=== PATIENT | male | born 1940 | race Caucasian/White ===

== ENCOUNTER 2023-07-20 09:17 | Emergency (ER) | payer OTHER, SELFPAY ==
[2023-07-20 09:20] VITALS: BP 133/83
--- NOTE | 2023-07-20 09:38 | ED.GENMED ---
History of Present Illness
General
Chief Complaint: Breathing Problem
Time Seen by Provider: 07/20/23 09:30
Travel History
Have you had any contact with someone who has COVID-19?: No
Do you have any symptoms of coronavirus? Fever > 100 degrees, chills, cough, shortness of breath, sore throat, loss of taste or smell, muscle aches, or headache?: No
History of Present Illness
History of Present Illness:
82-year-old male with history of A-fib on Eliquis presents to the emergency department for evaluation of shortness of breath and productive cough ongoing for the past week but worsening in the past 2 days. He is using albuterol inhalers and
nebulizers at home but he admits that these are by at least 2 years. Denies any chest pain. Does have left lower extremity swelling has been chronic for him. He is compliant with his anticoagulants. No fevers or night sweats.
Past History
Past History
ED Past Medical History: Arrthythmia (A-fib), Asthma, Hypercholesterolemia and Other
ED Past Surgical History: Cholecystectomy and Orthopedic
Social History
Tobacco: Former smoker
Alcohol: None
Drug: None
Employment: Retired
Review of Systems
Review of Systems
Allergies reviewed?: Yes
All Other Systems: ROS reviewed and negative except as documented in HPI and ROS
Phy Exam
Physical Exam
Physical Exam:
GEN: Well appearing, NAD, WDWN
Eyes: PERRLA, EOMs intact, no scleral icterus
HENT: NCAT, oral mucosa moist, no JVD,
Lungs: Coarse expiratory wheezes with prolonged expiratory phase heard throughout all lung welsh, tachypneic with accessory muscle use
Cardiac: Tachycardic and irregular, no M/R/G. Radial pulses 2+ bilat
Neuro: AO x 3, no focal deficits to BUE/BLE, normal sensation throughout
MSK: No gross deformity or ecchymosis. 2+ pitting edema to the left lower extremity below the knee, reportedly chronic according to the patient
Skin: No rashes, petechiae. Normal color, no pallor or jaundice.
Psych: Calm, cooperative, proper hygiene
Scores
Heart Failure Risk
Heart Failure Risk Score: Not Applicable
Course
Orders/Labs/Results
Orders:
Orders
07/20/23 09:37
Ipratropium/Albuterol Sulfate [Duoneb] 6 ml INH R NOW ONE
MethylPREDNISolone PF [Solu-Medrol Pf] 60 mg IV NOW STA
07/20/23 09:38
CR Chest - 2 Views Urgent
Comment:
Reason For Exam: cough, wheezing
07/20/23 09:51
Basic Metabolic Panel Urgent
COVID-19 Antigen Urgent
Source: Nasal Swab
Complete Blood Count/With Diff Urgent
Influenza A+B Rapid Molecular Urgent
INDRA Source: Nasal Swab
Specimen Description:
Abnormal Lab Results
07/20/23
09:51
MCV 98.8 H fL
(80.0-94.0)
MCH 32.8 H pg
(27.0-31.0)
RDW 14.9 H %
(11.5-14.5)
MPV 10.5 H fL
(7.4-10.4)
Absolute Monos (auto) 0.7 H 10^3/uL
(0.1-0.6)
Absolute Eos (auto) 1.1 H 10^3/uL
(0-0.7)
Monocytes % 11.2 H %
(1.7-9.3)
Eosinophils % 18.8 H %
(0-6)
Chloride 108 H mmol/L
(98-107)
BUN 25 H mg/dl
(9-20)
07/20/23 09:51
07/20/23 09:51
Vital Signs
Initial and Last Documented VS:
Initial Vital Signs
Temp Pulse Resp BP Pulse Ox
98.5 F 104 32 133/83 91
07/20/23 09:20 07/20/23 09:20 07/20/23 09:20 07/20/23 09:20 07/20/23 09:20
Last Documented Vital Signs
Temp Pulse Resp BP Pulse Ox
98.5 F 85 20 109/82 97
07/20/23 09:20 07/20/23 10:45 07/20/23 10:45 07/20/23 10:20 07/20/23 11:15
MDM/Problems Addressed
MDM/Problems Addressed:
Patient's symptoms dramatically improved after neb treatment. This chest x-ray is clear with no evidence for infiltrate. His hypoxia resolved and work of breathing returned to normal. Ultimately the patient appears clinically well on reevaluation
and I feel is appropriate for outpatient management. Started on IV steroids in the emergency department, he is provided with a nebulizer machine and albuterol via nebulization for as needed use, will start him on a course of steroids
*Critical Care Note
Total Time (30-74mins, 75-104mins- exclusive of procedures): Not Applicable
ED Attending Note
-
Portions of this chart may have been created with voice recognition software.� Occasional wrong word or��sound alike� substitutions may have occurred due to the inherent limitations of voice recognition software.
Discharge Plan
Departure
Patient Disposition: Home (Routine Discharge)
Date of Disposition: 07/20/23
Time of Disposition: 11:12
Patient with high blood pressure during this ER visit?: No
Discharge Problem:
Asthma exacerbation
Instructions: Asthma, Adult (DC)
Prescriptions:
New
albuterol sulfate 90 mcg/actuation HFA aerosol inhaler
2 puff inhalation QID PRN (Reason: shortness of breath or wheezing) Qty: 8.5 0RF
albuterol sulfate 2.5 mg /3 mL (0.083 %) solution for nebulization
2.5 mg inhalation QID PRN (Reason: shortness of breath or wheezing) Qty: 90 0RF
prednisone 20 mg tablet
40 mg PO DAILY 5 Days Qty: 10 0RF
No Action
lovastatin 40 mg Tablet
40 mg PO QPM
carvedilol 3.125 mg Tablet
3.125 mg PO BID
albuterol sulfate [ProAir HFA] 90 mcg/actuation Hfa Aerosol Inhaler
2 puff INHALATION R Q6HPRN PRN (Reason: sob)
PreserVision AREDS-2 250-90-40-1 mg Capsule
1 tab PO QPM
fluticasone propionate 50 mcg/actuation [place],Suspension
1 spray INTRANASAL DAILYPRN PRN (Reason: allergies)
aspirin 81 mg Tablet,Delayed Release (Dr/Ec)
81 mg PO DAILY
Eliquis 5 mg Tablet
5 mg PO BID
Breztri Aerosphere 160-9-4.8 mcg/actuation Hfa Aerosol Inhaler
2 inh INHALATION R BID
Referrals:
Filippo Cotton MD [Family Provider] -
Activity Restrictions/Additional Instructions:
Use the nebulizer up to every 4-6 hours as needed for shortness of breath. Begin taking the prednisone tomorrow because we gave you a dose of IV steroids in the ER
Do not use your albuterol inhaler while using the nebulizer however you may resume this in 1 week as needed
Continue your Breztri as previously prescribed
Follow-up with your global compensation director in 1 to 2 weeks
Interventions
Interventions:
*Risk Screen - Suicide Last Done: 07/20/23 10:20
*General Assessment Last Done: 07/20/23 10:20
*Neglect/Abuse Screening Last Done: 07/20/23 10:20
ED- Fall Risk Assessment Last Done: 07/20/23 10:20
*ED COVID-19 Vaccine History Last Done: 07/20/23 10:20
*Nursing Disposition Last Done: 07/20/23 11:15
ED- Cardiac Assessment Last Done: 07/20/23 10:20
ED- Pulmonary Assessment Last Done: 07/20/23 10:20
Discharge Date and Time
Discharge Date/Time: 07/20/23 11:15
Print Language: GREENLANDIC
[2023-07-20] MEDS: SOLU-MEDROL PF 60 MG IV (09:43)
[2023-07-20] MEDS: DUONEB 6 ML INH (09:43)
[2023-07-20 09:59] LABS: % Basophils 0.7 % (0-2); % Eosinophils 18.8 % (0-6); % Immature Granulocytes 0.3 % (0-0.5); % Lymphocytes 25.8 % (20.5-51.1); % Monocytes 11.2 % (1.7-9.3); % Neutrophils 43.2 % (42.2-75.2); Absolute Eosinophils 1.1 10^3/uL (0-0.7); Absolute Lymphocytes 1.6 10^3/uL (1.2-3.4); Absolute Monocytes 0.7 10^3/uL (0.1-0.6); Absolute Neutrophils 2.6 10^3/uL (1.4-6.5); Hemoglobin 16.6 g/dL (13.0-18.0); Mean Corp Hgb Conc. 33.2 g/dL (33.0-37.0); Mean Corpuscular Hgb 32.8 pg (27.0-31.0); Mean Corpuscular Volume 98.8 fL (80.0-94.0); Mean Platelet Volume 10.5 fL (7.4-10.4); Nucleated Red Blood Cells % 0 % (-); Platelet Count 201 10^3/uL (130-400); Red Blood Cell Count 5.06 10^6/uL (4.70-6.10); Red Cell Dist. Width 14.9 % (11.5-14.5); White Blood Cell Count 6.1 10^3/uL (4.8-10.8)
[2023-07-20 10:15] LABS: COVID-19 Antigen Negative (Negative)
[2023-07-20 10:16] LABS: Blood Urea Nitrogen 25 mg/dl (9-20); Carbon Dioxide 26 mmol/L (22-30); Chloride 108 mmol/L (98-107); Glucose 97 mg/dl (70-99); Sodium 141 mmol/L (135-145); eGFR > 60.00
[2023-07-20 10:20] VITALS: BP 109/82
== END 2023-07-20 11:15 | disposition home or self-care (01) ==
LOC: EMR 09:17
PROVIDERS: Physician Assistant; EMERGENCY PHYSICIAN Emergency Medicine; FAMILY PHYSICIAN Family Medicine
DX: J45.901 Unspecified asthma with (acute) exacerbation (principal); I48.91 Unspecified atrial fibrillation; Z79.01 Long term (current) use of anticoagulants; Z87.891 Personal history of nicotine dependence
CPT/HCPCS: 99284; 96374; 94640; 71046; 80048; 85025; 87502; 87811

== ENCOUNTER 2024-02-11 10:13 | Emergency (ER) | payer OTHER, SELFPAY ==
[2024-02-11 10:30] VITALS: BP 124/89
--- NOTE | 2024-02-11 10:30 | ED.GENMED ---
ED Provider Triage
<Toribio Rodriguez PA-C - Last Filed: 02/11/24 10:32>
-
Patient seen by provider in Triage?: Seen in Triage
Attestation: A medical screening examination has been initiated by a qualified medical provider. Based on the assessment performed at this time, it has been determined that an emergent medical condition may exist and the patient has been informed
that further medical evaluation and possible additional diagnostic testing may be needed.
HPI: 83-year-old male presenting to the emergency department for evaluation at request of primary care provider due to left lower extremity edema and pain. States he scraped it a few weeks ago and has had some worsening pain since, today seems a
little bit worse. No fevers or chills or other infectious symptoms. Primary care provider was more concerned for possible DVTs were advised to come to the ER for an ultrasound. Patient is otherwise stable. Ultrasound ordered.
GENERAL: Alert , in no apparent distress
EYE: No visual abnormalities.
NECK: Trachea midline
ENT: No visible abnormalities.
LUNGS: No acute respiratory distress
NEUROLOGICAL: Alert and oriented
SKIN: Skin intact. No visible changes.
MUSCULOSKELETAL: Moving extremities normally
PSYCH: Normal and appropriate interaction.
This is a medical evaluation conducted in person to initiate diagnostic evaluation and provide initial therapeutics. Please see further documentation by the treating clinician.
History of Present Illness
<Toribio Rodriguez PA-C - Last Filed: 02/11/24 10:32>
General
Chief Complaint: Swelling
Time Seen by Provider: 02/11/24 11:11
<Merced Muñoz PA-C - Last Filed: 02/11/24 12:51>
General
Source: patient
Exam Limitations: none
Nursing documentation reviewed up to this point in time: agreed with
History of Present Illness
History of Present Illness:
pt is a 83 y/o M with h/o afib on eliquis
peripheral edema
prostate ca in the past
here with L ankle mild redness after scraping against his mower 2 weeks ago
pt had a wound that scabbed and then turned a little red around it.
1 week ago he went to his PCP where they put him on keflex bid for 5 days
pt says he iwas called today by the office to have follow up and he happened to mention that the leg is still mildly pink and swollen adn they told him to come tot he ER
he has chronic edema in his legs for which he has been prescribed lasix but pt hasn't taken it recently becuase it makes him pee a lot.
he feels the swelling is a little worse than baseline around his wound
no sensory loss, fever, chills, nauesa, vomiting, diarrhea
pt is compliant with his eliquis
Past History
<Toribio Rodriguez PA-C - Last Filed: 02/11/24 10:32>
Past History
ED Past Medical History: Arrthythmia (A-fib), Asthma, Hypercholesterolemia and Other
ED Past Surgical History: Cholecystectomy and Orthopedic
Social History
Tobacco: Former smoker
Alcohol: None
Drug: None
Employment: Retired
Phy Exam
<Merced Muñoz PA-C - Last Filed: 02/11/24 12:51>
Physical Exam
Physical Exam:
GENERAL: Alert , in no apparent distress
EYE: pupils equal and reactive
NECK: Supple
ENT: o/p clr, mmm.
CARDIAC: Regular rate and rhythm .+ peripheral pitting edema, very minimally greater around ankle L side but fairly symmetric with 3+ pitting pretibial edema b/l
LUNGS: Clear breath sounds bilaterally, no acute respiratory distress, no wheezes/rales/rhonchi
ABDOMEN: Soft, without focal tenderness, no r/g, no cvat, normal bowel sounds
NEUROLOGICAL: Alert and oriented, no focal neuro deficits
SKIN: Warm and dry,
scab left medial ankle
TRACE pink skin surrounding; normal sensation; no sigificnat tendenress; full ROM of the ankle
MUSCULOSKELETAL: edema b/l; ankle wound healed; minimal pink skin; PVD skin changes b/l
PSYCH: Normal and appropriate interaction.
Scores
<Merced Muñoz PA-C - Last Filed: 02/11/24 12:51>
Heart Failure Risk
Heart Failure Risk Score: Not Applicable
Course
<Toribio Rodriguez PA-C - Last Filed: 02/11/24 10:32>
Orders/Labs/Results
Orders:
Orders
02/11/24 10:31
US Periph Venous LOWER Ext LT Urgent
Comment:
Reason For Exam: pain, edema, erythema
Vital Signs
Initial and Last Documented VS:
Initial Vital Signs
Temp Pulse Resp BP Pulse Ox
36.2 C 93 18 124/89 97
02/11/24 10:30 02/11/24 10:30 02/11/24 10:30 02/11/24 10:30 02/11/24 10:30
Last Documented Vital Signs
Temp Pulse Resp BP Pulse Ox
36.2 C 93 18 124/89 97
02/11/24 10:30 02/11/24 10:30 02/11/24 10:30 02/11/24 10:30 02/11/24 10:30
<Merced Muñoz PA-C - Last Filed: 02/11/24 12:51>
Orders/Labs/Results
Orders:
Orders
02/11/24 10:31
US Periph Venous LOWER Ext LT Urgent
Comment:
Reason For Exam: pain, edema, erythema
Vital Signs
Initial and Last Documented VS:
Initial Vital Signs
Temp Pulse Resp BP Pulse Ox
36.2 C 93 18 124/89 97
02/11/24 10:30 02/11/24 10:30 02/11/24 10:30 02/11/24 10:30 02/11/24 10:30
Last Documented Vital Signs
Temp Pulse Resp BP Pulse Ox
36.2 C 93 18 124/89 97
02/11/24 10:30 02/11/24 10:30 02/11/24 10:30 02/11/24 10:30 02/11/24 10:30
<Merced Muñoz PA-C - Last Filed: 02/11/24 12:51>
MDM/Problems Addressed
Differential Diagnosis Includes:
cellultiis, failure of outpatient ax, venous stasis changes
edema
MDM/Problems Addressed:
83 y/o M
afib on eliquis
chronic edema
PVD skin chagnes b/l LE
here with left ankle slight pink skin aorund scab form wound from scraping 2 weeks ago
took keflex th epast few days from pcp
thinks it doesn't looks much better but it doesn't look worse
and while trying to make appt for f/u with pcp they told him to come in to be seen
he has no significant pain, systemic sypmtos
he does havve periph edema but doesn't take lasix because he doesn't like peeing a lot
it appears this is healed scab; the slight pink skin around it looks more like venous stasis dermatitis
would consider switch to doxy but really doesn't look cellulitic
the US was ordered from [facility]; he is on eliquis and fairly compliant so unlikely to be clot butwas going to proceed with US and then d/c home
pt eloped prior to US.
<Merced Muñoz PA-C - Last Filed: 02/11/24 12:51>
*Critical Care Note
Total Time (30-74mins, 75-104mins- exclusive of procedures): Not Applicable
ED Attending Note
<Toribio Rodriguez PA-C - Last Filed: 02/11/24 10:32>
-
Portions of this chart may have been created with voice recognition software.� Occasional wrong word or��sound alike� substitutions may have occurred due to the inherent limitations of voice recognition software.
Discharge Plan
Departure
Patient Disposition: Elopement
Date of Disposition: 02/11/24
Time of Disposition: 12:47
Condition: Fair
Covid-19: Not Applicable
Discharge Problem:
Venous stasis dermatitis
Prescriptions:
No Action
lovastatin 40 mg Tablet
40 mg PO QPM
carvedilol 3.125 mg Tablet
3.125 mg PO BID
albuterol sulfate [ProAir HFA] 90 mcg/actuation Hfa Aerosol Inhaler
2 puff INHALATION R Q6HPRN PRN (Reason: sob)
PreserVision AREDS-2 250-90-40-1 mg Capsule
1 tab PO QPM
fluticasone propionate 50 mcg/actuation [place],Suspension
1 spray INTRANASAL DAILYPRN PRN (Reason: allergies)
aspirin 81 mg Tablet,Delayed Release (Dr/Ec)
81 mg PO DAILY
Eliquis 5 mg Tablet
5 mg PO BID
Breztri Aerosphere 160-9-4.8 mcg/actuation Hfa Aerosol Inhaler
2 inh INHALATION R BID
albuterol sulfate 90 mcg/actuation HFA aerosol inhaler
2 puff inhalation QID PRN (Reason: shortness of breath or wheezing) Qty: 8.5 0RF
albuterol sulfate 2.5 mg /3 mL (0.083 %) solution for nebulization
2.5 mg inhalation QID PRN (Reason: shortness of breath or wheezing) Qty: 90 0RF
prednisone 20 mg tablet
40 mg PO DAILY 5 Days Qty: 10 0RF
Referrals:
Filippo Cotton MD [Family Provider] -
Interventions
Interventions:
*Risk Screen - Suicide Last Done: 02/11/24 10:30
*General Assessment Last Done: 02/11/24 10:30
*Neglect/Abuse Screening Last Done: 02/11/24 10:30
ED- Fall Risk Assessment Last Done: 02/11/24 11:04
*ED COVID-19 Vaccine History Last Done: 02/11/24 10:30
ED- Cardiac Assessment Last Done: 02/11/24 11:04
ED- Pulmonary Assessment Last Done: 02/11/24 11:04
ED-Skin Assessment Last Done: 02/11/24 11:04
Discharge Date and Time
Print Language: STATELESS
[2024-02-11 11:41] VITALS: BMI 29.1
== END 2024-02-11 12:59 | disposition left against medical advice (07) ==
LOC: EMR 10:13
PROVIDERS: EMERGENCY PHYSICIAN Emergency Medicine; FAMILY PHYSICIAN Family Medicine
DX: I87.2 Venous insufficiency (chronic) (peripheral) (principal); E78.00 Pure hypercholesterolemia, unspecified; I48.91 Unspecified atrial fibrillation; J45.909 Unspecified asthma, uncomplicated; Z79.01 Long term (current) use of anticoagulants; Z85.46 Personal history of malignant neoplasm of prostate; Z87.891 Personal history of nicotine dependence; Z53.29 Procedure and treatment not carried out because of patient's decision for other reasons
CPT/HCPCS: 99281

== ENCOUNTER 2024-02-11 17:55 | Emergency (ER) | payer OTHER, SELFPAY ==
[2024-02-11 17:57] VITALS: BP 125/85
--- NOTE | 2024-02-11 17:57 | ED.GENMED ---
ED Provider Triage
<Toribio Rodriguez PA-C - Last Filed: 02/11/24 17:58>
-
Patient seen by provider in Triage?: Seen in Triage
Attestation: A medical screening examination has been initiated by a qualified medical provider. Based on the assessment performed at this time, it has been determined that an emergent medical condition may exist and the patient has been informed
that further medical evaluation and possible additional diagnostic testing may be needed.
HPI: 83-year-old male, seen earlier today but had eloped prior to receiving his ultrasound due to a family emergency at home presenting back to the ER for his ultrasound of the left lower leg. Patient scraped up the leg about 2 weeks ago and has
had some swelling and pain since. Ultrasound of the extremity ordered. Patient is on Eliquis and reports compliance with this so unlikely to be DVT but will evaluate as he was sent by primary care.
GENERAL: Alert , in no apparent distress
EYE: No visual abnormalities.
NECK: Trachea midline
ENT: No visible abnormalities.
LUNGS: No acute respiratory distress
NEUROLOGICAL: Alert and oriented
SKIN: Skin intact. No visible changes.
MUSCULOSKELETAL: Moving extremities normally
PSYCH: Normal and appropriate interaction.
This is a medical evaluation conducted in person to initiate diagnostic evaluation and provide initial therapeutics. Please see further documentation by the treating clinician.
History of Present Illness
<Toribio Rodriguez PA-C - Last Filed: 02/11/24 17:58>
General
Chief Complaint: Musculo-Skeletal Complaint
Time Seen by Provider: 02/11/24 18:32
<Stevie Nieves DO - Last Filed: 02/11/24 20:15>
History of Present Illness
History of Present Illness:
TIME OF INITIAL ENCOUNTER: 6:35 PM
HPI: 83-year-old male, seen earlier today but had eloped prior to receiving his ultrasound due to a family emergency at home presenting back to the ER for his ultrasound of the left lower leg. Patient scraped up the leg about 2 weeks ago and has
had some swelling and pain since. He had been on Keflex. Ultrasound of the extremity was ordered from triage. Patient is on Eliquis but tells me that he only takes it once daily. He denies any shortness of breath.
EXAM:
GENERAL: Well appearing in no distress
HEENT: Moist oral mucosa
CARDIOVASCULAR: No murmurs, normal heart rate, regular rhythm, No chest wall tenderness
PULMONARY: No respiratory distress, breath sounds are clear and equal
ABDOMEN: Soft with no peritoneal signs, no tenderness
NEUROLOGIC: Excellent strength all extremities, no coordination deficits
PSYCHIATRIC: Appropriate mental status, normal insight and judgement
EXTREMITIES: Nontender, 3+ left and 2+ right pitting lower extremity edema, moves all extremities equally
SKIN: No rash, no lesions
NUMBER AND COMPLEXITY OF PROBLEMS ADDRESSED AT THE ENCOUNTER
� Chronic conditions affecting care: Former smoker, atrial fibrillation, hyperlipidemia, prostate cancer
� Acute Exacerbation and/or Progression of Chronic Illness: This is an acute problem
� Differential Diagnosis includes: DVT, superficial venous thrombosis, calf vein thrombosis, cellulitis unlikely based on appearance, soft tissue hemorrhage, contusion
AMOUNT AND/OR COMPLEXITY OF DATA TO BE REVIEWED AND ANALYZED
� I performed an independent evaluation of and my interpretation is:
EKG:
CT:
X-rays:
Laboratory Studies:
Other: Ultrasound imaging personally viewed
� Review of other/old records: I reviewed records, renal function from earlier this year was normal
� Clinical information was obtained by an independent historian: I spoke to the at bedside
� Prescriptions/Medications Considered but not given:
� Further testing considered but not performed:
RISK OF COMPLICATIONS AND/OR MORBIDITY OR MORTALITY OF PATIENT MANAGEMENT
� Social determinants of health affecting care: Lives at home
� Discussion with other providers: Given the abnormality on ultrasound, I messaged the on-call in class special education teacher
� Escalation of care including admission/observation vs risk of discharge considered: The patient has calf vein thrombosis on the left side but is only taking Eliquis once daily.
ANY OTHER UPDATES:
The patient has only been taking 5 mg of Eliquis once daily. In discussion with Dr. Matias, we agreed the patient should take 10 mg of Eliquis twice a day for a week and then go back to a more appropriate dosing of 5 mg twice daily. Patient and
verbalized understanding of this. I did send a prescription for additional Eliquis in case he runs out.
Past History
<Toribio Rodriguez PA-C - Last Filed: 02/11/24 17:58>
Past History
ED Past Medical History: Arrthythmia (A-fib), Asthma, Hypercholesterolemia and Other
ED Past Surgical History: Cholecystectomy and Orthopedic
Social History
Tobacco: Former smoker
Alcohol: None
Drug: None
Employment: Retired
Phy Exam
<Stevie Nieves DO - Last Filed: 02/11/24 20:15>
Physical Exam
Physical Exam:
See HPI
Course
<Toribio Rodriguez PA-C - Last Filed: 02/11/24 17:58>
Orders/Labs/Results
Orders:
Orders
02/11/24 17:57
US Periph Venous LOWER Ext LT Urgent
Comment:
Reason For Exam: edema, pain
Vital Signs
Initial and Last Documented VS:
Initial Vital Signs
Temp Pulse Resp BP Pulse Ox
36.6 C 86 20 125/85 99
02/11/24 17:57 02/11/24 17:57 02/11/24 17:57 02/11/24 17:57 02/11/24 17:57
Last Documented Vital Signs
Temp Pulse Resp BP Pulse Ox
36.6 C 86 20 125/85 99
02/11/24 17:57 02/11/24 17:57 02/11/24 17:57 02/11/24 17:57 02/11/24 17:57
<Stevie Nieves DO - Last Filed: 02/11/24 20:15>
Orders/Labs/Results
Orders:
Orders
02/11/24 17:57
US Periph Venous LOWER Ext LT Urgent
Comment:
Reason For Exam: edema, pain
Vital Signs
Initial and Last Documented VS:
Initial Vital Signs
Temp Pulse Resp BP Pulse Ox
36.6 C 86 20 125/85 99
02/11/24 17:57 02/11/24 17:57 02/11/24 17:57 02/11/24 17:57 02/11/24 17:57
Last Documented Vital Signs
Temp Pulse Resp BP Pulse Ox
36.6 C 86 20 125/85 99
02/11/24 17:57 02/11/24 17:57 02/11/24 17:57 02/11/24 17:57 02/11/24 17:57
<Stevie Nieves DO - Last Filed: 02/11/24 20:15>
*Critical Care Note
Total Time (30-74mins, 75-104mins- exclusive of procedures): Not Applicable
ED Attending Note
<Toribio Rodriguez PA-C - Last Filed: 02/11/24 17:58>
-
Portions of this chart may have been created with voice recognition software.� Occasional wrong word or��sound alike� substitutions may have occurred due to the inherent limitations of voice recognition software.
Discharge Plan
Departure
Patient Disposition: Home (Routine Discharge)
Date of Disposition: 02/11/24
Time of Disposition: 20:11
Patient with high blood pressure during this ER visit?: Yes
Discharge Problem:
Acute deep vein thrombosis (DVT) of calf muscle vein of left lower extremity
Prescriptions:
New
Eliquis 5 mg tablet
5 mg PO BID Qty: 60 0RF
No Action
lovastatin 40 mg Tablet
40 mg PO QPM
carvedilol 3.125 mg Tablet
3.125 mg PO BID
albuterol sulfate [ProAir HFA] 90 mcg/actuation Hfa Aerosol Inhaler
2 puff INHALATION R Q6HPRN PRN (Reason: sob)
PreserVision AREDS-2 250-90-40-1 mg Capsule
1 tab PO QPM
fluticasone propionate 50 mcg/actuation [place],Suspension
1 spray INTRANASAL DAILYPRN PRN (Reason: allergies)
aspirin 81 mg Tablet,Delayed Release (Dr/Ec)
81 mg PO DAILY
Eliquis 5 mg Tablet
5 mg PO BID
Breztri Aerosphere 160-9-4.8 mcg/actuation Hfa Aerosol Inhaler
2 inh INHALATION R BID
albuterol sulfate 90 mcg/actuation HFA aerosol inhaler
2 puff inhalation QID PRN (Reason: shortness of breath or wheezing) Qty: 8.5 0RF
albuterol sulfate 2.5 mg /3 mL (0.083 %) solution for nebulization
2.5 mg inhalation QID PRN (Reason: shortness of breath or wheezing) Qty: 90 0RF
prednisone 20 mg tablet
40 mg PO DAILY 5 Days Qty: 10 0RF
Referrals:
Filippo Cotton MD [Family Provider] -
Kenyon Matias MD [Active] - Follow up in 1 week
Activity Restrictions/Additional Instructions:
I spoke to Dr. Spears. Dyer, take 2 of the Eliquis 5 mg tablets. Take 2 of the Eliquis 5 mg tablets twice a day for the next week. Then, go back down to Eliquis 5 mg 1 tablet twice a day indefinitely. Return here if worse or other concerns.
You could also follow-up Dr. Matias (heme-onc).
Interventions
Interventions:
*Risk Screen - Suicide Last Done: 02/11/24 18:53
*General Assessment Last Done: 02/11/24 18:01
*Neglect/Abuse Screening Last Done: 02/11/24 18:53
ED-Musculoskeletal Assessment Last Done: 02/11/24 20:00
Discharge Date and Time
Print Language: KOREAN
== END 2024-02-11 20:46 | disposition home or self-care (01) ==
LOC: EMR 17:55
PROVIDERS: EMERGENCY PHYSICIAN Emergency Medicine; FAMILY PHYSICIAN Family Medicine
DX: I82.462 Acute embolism and thrombosis of left calf muscular vein (principal); E78.00 Pure hypercholesterolemia, unspecified; I48.91 Unspecified atrial fibrillation; J45.909 Unspecified asthma, uncomplicated; Z79.01 Long term (current) use of anticoagulants; Z87.891 Personal history of nicotine dependence
CPT/HCPCS: 99284; 93971

== ENCOUNTER 2024-03-11 08:00 | Inpatient (IN) | payer OTHER, SELFPAY ==
[2024-03-11] VITALS (29 sets, daily range): BP systolic 81–152; BP diastolic 51–137; BMI 28.8
[2024-03-11 04:31] LABS: Urine Albumin Negative (Neg - Trace); Urine Bilirubin Negative (Negative); Urine Character Clear (Clear); Urine Color Yellow; Urine Glucose Negative (Negative); Urine Ketone Negative (Negative); Urine Leukocyte Negative (Negative); Urine Nitrite Negative (Negative); Urine Occult Blood Trace (Negative); Urine Specific Gravity 1.015 (<1.030); Urine Urobilinogen 1+ (Neg - 1+)
[2024-03-11 04:32] LABS: % Basophils 0.5 % (0-2); % Immature Granulocytes 0.7 % (0-0.5); % Lymphocytes 8.9 % (20.5-51.1); % Monocytes 8.2 % (1.7-9.3); % Neutrophils 80.7 % (42.2-75.2); Absolute Basophils 0.1 10^3/uL (0-0.2); Absolute Eosinophils 0.1 10^3/uL (0-0.7); Absolute Immature Granulocytes 0.1 10^3/uL (0-0.05); Absolute Monocytes 0.9 10^3/uL (0.1-0.6); Absolute Neutrophils 8.8 10^3/uL (1.4-6.5); Hematocrit 43.9 % (39.0-52.0); Mean Corp Hgb Conc. 34.2 g/dL (33.0-37.0); Mean Corpuscular Hgb 32.6 pg (27.0-31.0); Mean Corpuscular Volume 95.4 fL (80.0-94.0); Mean Platelet Volume 10.2 fL (7.4-10.4); Nucleated Red Blood Cells % 0 % (-); Platelet Count 185 10^3/uL (130-400); Red Cell Dist. Width 14.6 % (11.5-14.5); White Blood Cell Count 10.9 10^3/uL (4.8-10.8)
[2024-03-11 04:42] LABS: ALT (SGPT) 14 U/L (0-50); AST (SGOT) 25 U/L (17-59); Albumin 3.8 g/dl (3.5-5.0); Alkaline Phosphatase 76 U/L (38-126); Blood Urea Nitrogen 25 mg/dl (9-20); Calcium 8.8 mg/dl (8.4-10.2); Carbon Dioxide 24 mmol/L (22-30); Chloride 102 mmol/L (98-107); Estimated Creatinine Clearance 53 ml/min; Glucose 97 mg/dl (70-99); Potassium 4.4 mmol/L (3.5-5.1); Sodium 134 mmol/L (135-145); Total Bilirubin 1.3 mg/dl (0.2-1.3); Total Protein 6.8 g/dl (6.3-8.2); eGFR > 60.00
[2024-03-11 05:07] LABS: Lactic Acid 1.6 mmol/L (0.7-2.0)
[2024-03-11 05:08] LABS: COVID-19 Antigen Negative (Negative)
[2024-03-11 05:27] LABS: Urine Bacteria Moderate (Negative); Urine Mucus Moderate; Urine White Cell 0-2 /HPF (0-5)
--- NOTE | 2024-03-11 06:27 | ED.GENMED ---
History of Present Illness
<Kee Banegas DO, Resident - Last Filed: 03/11/24 09:52>
General
Chief Complaint: Fainting Sensation
Source: patient and records
Time Seen by Provider: 03/11/24 06:08
History of Present Illness
History of Present Illness:
83-year-old male past medical history of prostate carcinoma status post radiation 1 years ago, atrial fibrillation on Eliquis presents after sensation of lightheadedness. Patient reports he began feeling lightheaded at home, was eased to the floor
did not fall did not strike his head. Patient is on Eliquis, reports he did not take his Eliquis this morning. In the emergency department patient is endorsing chronic left lower extremity weakness compared to right as well as increased swelling
bilaterally lower extremities. EKG in emergency department demonstrates atrial fibrillation, patient is tachycardic, tachypneic with an elevated temperature 101.8. Patient denies any urinary symptoms, no headache, no dizziness, no changes in
vision, no palpitations, no shortness of breath, does admit to a hacking productive cough.
Past History
<Kee Banegas DO, Resident - Last Filed: 03/11/24 09:52>
Past History
ED Past Medical History: Arrthythmia (A-fib), Asthma, Hypercholesterolemia and Other
ED Past Surgical History: Cholecystectomy and Orthopedic
Social History
Tobacco: Former smoker
Alcohol: None
Drug: None
Employment: Retired
Review of Systems
<Kee Banegas DO, Resident - Last Filed: 03/11/24 09:52>
Review of Systems
Constitutional: Reports no symptoms; Denies fever
Respiratory: Reports cough; Denies trouble breathing
Cardiac: Reports no symptoms; Denies chest pain, palpitations or syncope
ABD/GI: Reports no symptoms; Denies abdominal pain or nausea
: Reports no symptoms
Skin: Reports rash
Neurological: Reports dizzy
Phy Exam
<Kee Banegas DO, Resident - Last Filed: 03/11/24 09:52>
General Physical Exam
General Presentation: well appearing and no apparent distress
General Skin: warm and dry
Cardiovascular Exam
Cardiovascular Exam: no murmur, irregularly irregular and tachycardia
Pulmonary Exam
Pulmonary Exam: no respiratory distress, generalized wheezing (Diffuse wheezing) and other (Crackles auscultated, more severe in lower lung welsh)
Oxygen Status: room air
Gastrointestinal Exam
Gastrointestinal Exam: non tender, soft and non distended
Neurological Exam
Neurological Exam: alert, oriented x3, CN II-XII intact, no sensory deficits (Symmetric sensation lower extremities), speech normal and motor weakness (Patient has left lower extremity weakness compared to right.)
Musculoskeletal Exam
Musculoskeletal Exam: edema (Bilateral lower extremity edema, pitting)
Skin Exam
Skin Exam: redness, warmth and other (Left lower extremity, red, hot, nontender to palpation)
Sepsis
<Kee Banegas DO, Resident - Last Filed: 03/11/24 09:52>
Sepsis Screening
Sepsis Assessment: Sepsis
Sepsis Screen
Sepsis Screen: Sepsis
Date: 03/11/24
Time: 09:50
Course
<Kee Banegas DO, Resident - Last Filed: 03/11/24 09:52>
Orders/Labs/Results
Orders:
Orders
03/11/24
Electrocardiogram (*1) Stat
Reason for Study: Chest Pain
Comment: DONE
03/11/24 04:06
CT Head W/o Iv Contrast Urgent
Comment:
Reason For Exam: weakness, weak gait. near syncope
03/11/24 04:12
Complete Blood Count/With Diff Urgent
Comprehensive Metabolic Panel Urgent
Urinalysis Reflex To Culture Urgent
Date Specimen was Collected: 03/11/24
Time Specimen was Collected: 04:08
Urine Microscopic Reflex Cult Urgent
Urine Culture Urgent
INDRA Source: U
Specimen Description:
Date Specimen was Collected: 03/11/24
Time Specimen was Collected: 04:08
03/11/24 04:31
COVID-19 Antigen Urgent
Source: Nasal Swab
Lactic Acid Urgent
Influenza A+B Rapid Molecular Urgent
INDRA Source: Nasal Swab
Specimen Description:
03/11/24 05:47
EKG- Treatment ONCE
03/11/24 06:45
CR Chest - 2 Views Urgent
Comment:
Reason For Exam: Fever
03/11/24 06:46
Apixaban [Eliquis] 5 mg PO BID ONE
03/11/24 06:47
Acetaminophen [Tylenol] 650 mg PO NOW STA
03/11/24 07:04
0.9% Sodium Chloride 1000 ml [Nss] 1,000 ml IV BOLUS
Apixaban [Eliquis] 5 mg PO NOW STA
03/11/24 07:25
Azithromycin 500 mg/250 ml [Zithromax Infusion] 500 mg in 250 ml IV NOW
CefTRIAXone [Rocephin] 1,000 mg IV NOW STA
03/11/24 07:27
Blood Culture Q30M
INDRA Source: Blood/Venous
Specimen Description:
Blood Culture Q30M
INDRA Source: Blood/Venous
Specimen Description:
03/11/24 07:52
Admit/Transfer Patient As Directed
Co-Sign Provider:
Level of Care: Inpatient admission
Assign to:: IMU- Intermediate Care
Physician / Group: Dr Barragan
Diagnosis: Sepsis
Reason for Hospitalization: pte p/w sepsis
Expected length of stay greater than two midnights?: Yes
ELOS- Estimated Length of Stay in days: 2
I certify the patient meets the requirements for IP care: Yes
PRN Pain Medication Management As Directed
May give lesser potent ordered pain med per pt: Yes
preference::
Protocol:: Medication orders for pain may be administered in a
manner that supports deferring to patient preference
when the pt is:
- Requesting an ordered lesser potent pain medication.
Least to most potent pain medications are defined
as: acetaminophen < NSAID < tramadol < opioids
(morphine, oxycodone, hydromorphone).
- Requesting a lesser dose of the same medication IF
ORDERED.
- Requesting a less intrusive route of administration
if both routes are prescribed by the provider (PO <
IV).
03/11/24 07:54
Code Status As Directed
Resuscitation Status: Full Code
03/11/24 07:57
Metoprolol [Lopressor] 5 mg IV Q6HPRN PRN
03/11/24 08:00
CeFAZolin 2 GRAM [Ancef] 2 grams in 10 ml IV Q8H
Lactated Ringers [Lr] 1,000 ml IV 100 mls/hr
03/11/24 08:28
NT-proBNP Urgent
Troponin I Urgent
Abnormal Lab Results
03/11/24
04:12
WBC 10.9 H 10^3/uL
(4.8-10.8)
RBC 4.60 L 10^6/uL
(4.70-6.10)
MCV 95.4 H fL
(80.0-94.0)
MCH 32.6 H pg
(27.0-31.0)
RDW 14.6 H %
(11.5-14.5)
Abs Immat Gran (auto) 0.1 H 10^3/uL
(0-0.05)
Absolute Neuts (auto) 8.8 H 10^3/uL
(1.4-6.5)
Absolute Lymphs (auto) 1.0 L 10^3/uL
(1.2-3.4)
Absolute Monos (auto) 0.9 H 10^3/uL
(0.1-0.6)
Immature Gran % 0.7 H %
(0-0.5)
Neutrophils % 80.7 H %
(42.2-75.2)
Lymphocytes % 8.9 L %
(20.5-51.1)
Sodium 134 L mmol/L
(135-145)
BUN 25 H mg/dl
(9-20)
Ur Occult Blood Reflex Trace A
(Negative)
Urine RBC 7-10 A /HPF
(0-2)
Urine Bacteria (Reflex) Moderate A
(Negative)
03/11/24 04:12
03/11/24 04:12
Vital Signs
Initial and Last Documented VS:
Initial Vital Signs
Pulse Resp
103 17
03/11/24 03:47 03/11/24 03:47
Last Documented Vital Signs
Temp Pulse Resp BP Pulse Ox
98 F 91 23 81/59 96
03/11/24 08:30 03/11/24 09:35 03/11/24 09:35 03/11/24 09:35 03/11/24 09:35
<Roz Salazar MD - Last Filed: 03/11/24 07:31>
Orders/Labs/Results
Orders:
Orders
03/11/24
Electrocardiogram (*1) Stat
Reason for Study: Chest Pain
Comment: DONE
03/11/24 04:06
CT Head W/o Iv Contrast Urgent
Comment:
Reason For Exam: weakness, weak gait. near syncope
03/11/24 04:12
Complete Blood Count/With Diff Urgent
Comprehensive Metabolic Panel Urgent
Urinalysis Reflex To Culture Urgent
Date Specimen was Collected: 03/11/24
Time Specimen was Collected: 04:08
Urine Microscopic Reflex Cult Urgent
Urine Culture Urgent
INDRA Source: U
Specimen Description:
Date Specimen was Collected: 03/11/24
Time Specimen was Collected: 04:08
03/11/24 04:31
COVID-19 Antigen Urgent
Source: Nasal Swab
Lactic Acid Urgent
Influenza A+B Rapid Molecular Urgent
INDRA Source: Nasal Swab
Specimen Description:
03/11/24 05:47
EKG- Treatment ONCE
03/11/24 06:45
CR Chest - 2 Views Urgent
Comment:
Reason For Exam: Fever
03/11/24 06:46
Apixaban [Eliquis] 5 mg PO BID ONE
03/11/24 06:47
Acetaminophen [Tylenol] 650 mg PO NOW STA
03/11/24 07:04
0.9% Sodium Chloride 1000 ml [Nss] 1,000 ml IV BOLUS
Apixaban [Eliquis] 5 mg PO NOW STA
03/11/24 07:25
Azithromycin 500 mg/250 ml [Zithromax Infusion] 500 mg in 250 ml IV NOW
CefTRIAXone [Rocephin] 1,000 mg IV NOW STA
03/11/24 07:27
Blood Culture Q30M
INDRA Source: Blood/Venous
Specimen Description:
Blood Culture Q30M
INDRA Source: Blood/Venous
Specimen Description:
03/11/24 07:52
Admit/Transfer Patient As Directed
Co-Sign Provider:
Level of Care: Inpatient admission
Assign to:: IMU- Intermediate Care
Physician / Group: Dr Barragan
Diagnosis: Sepsis
Reason for Hospitalization: pte p/w sepsis
Expected length of stay greater than two midnights?: Yes
ELOS- Estimated Length of Stay in days: 2
I certify the patient meets the requirements for IP care: Yes
PRN Pain Medication Management As Directed
May give lesser potent ordered pain med per pt: Yes
preference::
Protocol:: Medication orders for pain may be administered in a
manner that supports deferring to patient preference
when the pt is:
- Requesting an ordered lesser potent pain medication.
Least to most potent pain medications are defined
as: acetaminophen < NSAID < tramadol < opioids
(morphine, oxycodone, hydromorphone).
- Requesting a lesser dose of the same medication IF
ORDERED.
- Requesting a less intrusive route of administration
if both routes are prescribed by the provider (PO <
IV).
03/11/24 07:54
Code Status As Directed
Resuscitation Status: Full Code
03/11/24 07:57
Metoprolol [Lopressor] 5 mg IV Q6HPRN PRN
03/11/24 08:00
CeFAZolin 2 GRAM [Ancef] 2 grams in 10 ml IV Q8H
Lactated Ringers [Lr] 1,000 ml IV 100 mls/hr
03/11/24 08:28
NT-proBNP Urgent
Troponin I Urgent
Abnormal Lab Results
03/11/24
04:12
WBC 10.9 H 10^3/uL
(4.8-10.8)
RBC 4.60 L 10^6/uL
(4.70-6.10)
MCV 95.4 H fL
(80.0-94.0)
MCH 32.6 H pg
(27.0-31.0)
RDW 14.6 H %
(11.5-14.5)
Abs Immat Gran (auto) 0.1 H 10^3/uL
(0-0.05)
Absolute Neuts (auto) 8.8 H 10^3/uL
(1.4-6.5)
Absolute Lymphs (auto) 1.0 L 10^3/uL
(1.2-3.4)
Absolute Monos (auto) 0.9 H 10^3/uL
(0.1-0.6)
Immature Gran % 0.7 H %
(0-0.5)
Neutrophils % 80.7 H %
(42.2-75.2)
Lymphocytes % 8.9 L %
(20.5-51.1)
Sodium 134 L mmol/L
(135-145)
BUN 25 H mg/dl
(9-20)
Ur Occult Blood Reflex Trace A
(Negative)
Urine RBC 7-10 A /HPF
(0-2)
Urine Bacteria (Reflex) Moderate A
(Negative)
03/11/24 04:12
03/11/24 04:12
Vital Signs
Initial and Last Documented VS:
Initial Vital Signs
Pulse Resp
103 17
03/11/24 03:47 03/11/24 03:47
Last Documented Vital Signs
Temp Pulse Resp BP Pulse Ox
98 F 91 23 81/59 96
03/11/24 08:30 03/11/24 09:35 03/11/24 09:35 03/11/24 09:35 03/11/24 09:35
<Kee Banegas DO, Resident - Last Filed: 03/11/24 09:52>
MDM/Problems Addressed
Differential Diagnosis Includes:
Sepsis, cellulitis, DVT, CVA
MDM/Problems Addressed:
Presents for lightheadedness episode, has happened multiple times in the past week. Patient reports he did not lose consciousness, was eased to the floor during his last episode and did not strike his head. Patient is on Eliquis, did not take his
dose this morning
Endorsing left lower extremity weakness compared to right patient endorses this is also chronic and not new onset
Noncontrast head CT in emergency department demonstrates no acute hemorrhage. Did demonstrate what was read as right MCA territory encephalomalacia, paranasal sinuses were visualized and partially opacified�could correlate to acute sinusitis
Patient denies heart palpitations, no headache, no changes in vision, no shortness of breath, no abdominal pain, patient denies any urinary symptom, patient does admit to a hacking productive cough
On physical exam patient does have left lower extremity weakness compared to right, still has good strength just decreased compared to right. Patient endorses this is chronic and not new onset
Left lower extremity erythematous, warm with associated edema- bilaterally worse on the left, nontender to palpation. No calf tenderness to squeeze. Wheezing heard on exam, diffuse. Crackles auscultated loudest in the lower lung welsh
Previous visit 02/11/2024 patient had a left lower extremity DVT, was given elevated dose of Eliquis 10 mg twice daily for 1 week 1 week, has completed, now on maintenance 5 mg twice daily
In the emergency department EKG demonstrates atrial fibrillation, patient reports not taking his Eliquis this morning-Home dose Eliquis ordered one-time dose
Vitals demonstrate elevated temperature one 101.8 heart rate 103, respiratory rate 17 pressure 114/80
Labs demonstrate elevated white count 10.9, hemoglobin normal, sodium 134, lactic acid within normal limit
Patient does meet SIRS criteria, source still unclear. Will initiate infectious workup
Normal saline bolus 1 L wide open-being judicious with IV fluids as patient appears volume overloaded on exam
COVID and flu negative
Chest x-ray two-view
2 blood cultures by 30 minutes, per protocol
Urinalysis was noninfectious, no urinary symptoms
As patient appears volume overloaded on exam will add on proBNP
Will check troponins
One-time dose Tylenol for fever
Source is likely pulmonary in nature
Initiate empiric antibiotics one-time dose IV ceftriaxone, IV azithromycin
Patient will require inpatient hospital admission, communicated to admitting hospital team
<Kee Banegas DO, Resident - Last Filed: 03/11/24 09:52>
*Critical Care Note
Total Time (30-74mins, 75-104mins- exclusive of procedures): 30
<Kee Banegas DO, Resident - Last Filed: 03/11/24 09:52>
Update Note
Update Note:
03/11/2024, 0950 chest x-ray result returned reading parenchymal opacity projecting over posterior lower lung on lateral view, possibly within the medial aspect of the right lower lobe correlating is likely pneumonia.
Patient now meets criteria for sepsis, positive SIRS criteria, with pulmonology source
ED Attending Note
<Kee Banegas DO, Resident - Last Filed: 03/11/24 09:52>
-
Portions of this chart may have been created with voice recognition software.� Occasional wrong word or��sound alike� substitutions may have occurred due to the inherent limitations of voice recognition software.
<Roz Salazar MD - Last Filed: 03/11/24 07:31>
ED Attending Note
Patient seen and examined by attending physician: Yes
ED Attending Note:
This patient is an 83-year-old male presents emergency department with complaints of just not feeling great for the last few days. He had an episode last night where he was lightheaded and felt like he might pass out. reportedly helped ease
him down to the floor and there was no loss of consciousness or head injury. Recently, he notes a productive cough but denies dyspnea, sore throat, rhinorrhea. He was unaware he has a fever. He denies urinary symptoms, abdominal pain, new back
pain, neck pain, photophobia, severe headache. In addition to feeling lightheaded he states that his says he was 'talking stupid' before arrival here. He is fully oriented at this time. He reportedly has chronic left lower extremity weakness
which she attributes to his neuropathy. On exam, patient is tired but awake pleasant cooperative and appropriate and answering questions. Pupils equal round reactive to light without photophobia, neck supple without stiffness. Speech is clear.
Heart irregularly irregular. Lung sounds with wheezing and scattered rhonchi, speaks in full sentences, no retractions, no respiratory distress. Abdomen soft and nontender. grossly normal. Patient has bilateral lower extremity edema left
slightly greater than right with mild warmth and faint redness, healing scabs noted, no drainage fluctuance streaking. Neurovascularly intact. Neurological exam grossly nl, do not appreciate L le weakness (able to hold up for 5 sec with
encouragement), sens intact to light touch.
Patient presents to the Emergency Department with __weakness, lightheadedness
Number and Complexity of Problems Addressed at the Encounter
� Chronic conditions affecting care:
� Acute Exacerbation and/or Progression of Chronic Illness:
� Differential Diagnosis includes: but not limited to SIRS, sepsis, pna, stroke, urosepsis, flu, etc etc. etc.
Amount and/or Complexity of Data to be Reviewed and Analyzed
� I performed an independent evaluation of and my interpretation is:
EKG:read by me, afib, nl rate, no acute ischemia
CT:read by lis valdovinos
Xrays:
Laboratory Studies:leukocytosis with L shift, u/a unremarkable, trop/bnp pending.
Other:
� Review of other/old records reveals: dvt dx'd february 2024, 01/28 records re:cv for afib
� Clinical information was obtained by an independent historian:
� Prescriptions/Medications Considered but not given:
� Further testing considered but not performed:
Risk of Complications and/or Morbidity or Mortality of Patient Management
� Social determinants of health affecting care:
� Discussion with other providers (PCP, Hospitalists, Consultants, etc):
� Escalation of care including admission/observation vs risk of discharge considered: 730am pt bp remains stable...sirs evident, ?source, suspect most likely pulmonary although cxr not compelling for pna, given cough productive,
rhonchi, wheezing, etc. No outfitter cabin s/sxs to suggest meningitis/encephalitis, he is oriented without meningismus. Doubt mild cellulitis of LLE source. Text sent to hospitalist for admission. Cautious IVF given edema.
Discharge Plan
Departure
Patient Disposition: Admit
Date of Disposition: 03/11/24
Time of Disposition: 07:28
Presentation/result/management discussed w/ accepting MD/DO: Hospitalist
Condition: Good
Discharge Problem:
SIRS (systemic inflammatory response syndrome)
Interventions
Interventions:
*Risk Screen - Suicide Last Done: 03/11/24 03:48
*General Assessment Last Done: 03/11/24 03:48
*Neglect/Abuse Screening Last Done: 03/11/24 03:48
ED- Fall Risk Assessment Last Done: 03/11/24 03:48
*ED COVID-19 Vaccine History Last Done: 03/11/24 03:48
ED- Cardiac Assessment Last Done: 03/11/24 04:00
ED- Neurological Assessment Last Done: 03/11/24 04:00
[2024-03-11] MEDS: NSS 1000 IV ×2 (07:18→10:32)
[2024-03-11] MEDS: ELIQUIS 5 MG PO ×2 (07:18→20:51)
[2024-03-11] MEDS: TYLENOL 650 MG PO (07:18)
[2024-03-11] MEDS: ROCEPHIN 1000 MG IV (07:45)
[2024-03-11] MEDS: ZITHROMAX INFUSION 250 IV (07:45)
--- NOTE | 2024-03-11 07:59 | HPS.HSE ---
Addendum entered and electronically signed by Topher Barragan MD 03/11/24 16:42:
restart coreg with holding parameters
Original Note:
Family Physician
-
Family Physician: Filippo Cotton
Chief Complaint
-
fever
History of Present Illness
Patient 83 years old male with history of prostate cancer A-fib, asthma, hyperlipidemia, came into the hospital with generalized weakness and lightheadedness. Patient has been very weak and was feeling lightheaded today and almost fell and laid on
the floor without head trauma. He is also having some cough and mild shortness of breath. He has some swelling and redness of lower extremity. He reports that no different than before and he has been having fevers and chills. Denies dysuria
urgency or frequency. Denies nausea vomiting or diarrhea. Denies chest pain. In the ER, he was noted to be tachycardic, hypotensive, tachypneic, with a white blood cell count of 10.9. He was given broad-spectrum antibiotics. Chest x-ray
abnormal. He was referred to hospitalist service for further evaluation.
Medical History
Past Medical History
Past Medical History: Reports Other (Hypertension, hyperlipidemia, paroxysmal atrial fibrillation, prostate cancer, asthma.)
Past Surgical History: Reports Other (Cholecystectomy, orthopedic surgeries in the past.)
Social History
Tobacco: Former Smoker
Alcohol: None
Drug: None
Family History
Family History: Not pertinent
Allergies / Home Medications
Allergies reflects when Allergies were last updated in [facility].
Home Medications with original date entered in [facility]
Allergy/Medication List:
Allergies
Allergy/AdvReac Type Severity Reaction Status Date / Time
bee venom protein (honey bee) Allergy Severe Anaphylaxis Verified 03/11/24 03:47
seasonal Allergy sneezing, Uncoded 03/11/24 03:47
sinus,
asthma
Home Medications
carvedilol 3.125 mg tablet 3.125 mg PO BID Blood Pressure 01/09/22
fluticasone propionate 50 mcg/actuation nasal spray,suspension 1 spray intranasal DAILYPRN PRN allergies 01/09/22
lovastatin 40 mg tablet 40 mg PO QPM High Cholesterol 01/09/22
albuterol sulfate 90 mcg/actuation aerosol inhaler 2 puff inhalation QID PRN shortness of breath or wheezing #8.5 grams 07/20/23
aspirin 81 mg tablet,delayed release 81 mg PO DAILY Blood Clot Prevention/Tx 07/20/23
apixaban 5 mg tablet (Eliquis) 5 mg PO BID #60 tabs 02/11/24
budesonide 160 mcg-glycopyr 9 mcg-formot 4.8 mcg/actuation HFA inhaler (Breztri Aerosphere) 2 inh inhalation BID 03/11/24
vitamin E 268 mg (400 unit) capsule 268 mg PO DAILY 03/11/24
Review of Systems
-
A 12 point ROS was completed and negative except as noted: Yes
Physical Exam
Vital Signs
Vital Signs
Temp Pulse Resp BP Pulse Ox
101.8 F H 93 15 116/91 97
03/11/24 03:48 03/11/24 07:15 03/11/24 07:15 03/11/24 06:30 03/11/24 07:15
Physical exam:
General: Acutely ill
HEENT: Normocephalic, Atraumatic and Moist Mucous Membranes
Respiratory: Bilateral rhonchi in the bases; Negative Wheezes, Rales
Cardiac: Regular Rhythm and S1/S2
GI: Soft, Nontender and Nondistended
Musculoskeletal: No Clubbing, No Cyanosis and mild lower extremity edema with venous stasis
Neuro: Awake, Alert and Oriented, no gross neurodeficit
Psych: Calm
Physical Exam
General: Other
Laboratory Results
-
03/11/24 04:12
03/11/24 04:12
Laboratory Results
Lactic Acid 1.6 mmol/L (0.7-2.0) 03/11/24 04:31
Total Bilirubin 1.3 mg/dl (0.2-1.3) 03/11/24 04:12
AST 25 U/L (17-59) 03/11/24 04:12
ALT 14 U/L (0-50) 03/11/24 04:12
Alkaline Phosphatase 76 U/L (38-126) 03/11/24 04:12
Data Reviewed
-
Diagnostic Radiology: Image Personally Visualized and interpreted
Lab Data: Labs Reviewed by me
Impression/Plan
-
IMPRESSION:
Patient 83 years old male with multiple comorbidities came into the hospital with sepsis. Patient at risk of increased morbidity mortality due to acute presentation and needs to be in the hospital for further treatment and monitor and evaluation
PLAN:
Sepsis due to pneumonia:
Stat 1 L of normal saline--> patient hypotensive 81/59 by the time of my evaluation but responded to IV fluid with blood pressure 100/59 after challenge of fluid
Continue with IV fluids maintenance of lactated [place]
Sepsis due to pneumonia, suspect community-acquired pneumonia
Evidence of sepsis with toxic appearance, fever more than 38.3 Celsius, tachycardia >90, tachypnea >20, leukocytosis, and source of infection likely pneumonia; cannot exclude UTI.
Lactic acid of 1.6
Follow-up blood cultures
Follow-up sputum culture
Check strep urine antigen
Check Legionella urine antigen
CXR seen and evaluated myself and consistent with pneumonia
U/A is abnormal but not much of urinary symptoms
Continue on broad-spectrum antibiotics of ceftriaxone and azithromycin
Check speech therapy for swallow eval
Continue monitor WBC count and temperature curve.
Paroxysmal atrial fibrillation:
Twelve-lead EKG with A-fib at 92 bpm
Will use rate control with IV Lopressor 5 mg every 6 hours as needed
Hold Coreg for now
Continue anticoagulation, Eliquis 5 mg twice a day
Cardiac monitoring
Chronic systolic congestive heart failure:
Moderate depressed ejection fraction of 46% by last echocardiogram on June 2022
Clinically hypovolemic despite some lower extremity edema
Recently diagnosed with DVT:
Continue Eliquis 5 mg twice a day (he was on 10 mg p.o. twice a day loading dose prior to current doses)
Abnormal BNP:
No signs of heart failure the moment
Diuresis as needed down the road
Normal troponin
Hyperlipidemia:
Continue statin
Asthma:
Continue bronchodilators
Continue home inhalers
DVT prophylaxis:
Eliquis
CODE STATUS:
Full code
Total Critical Care Time__48___ minutes. I was immediately available to the patient and staff. I personally examined, reviewed labs, diagnostic images/reports, interpretations, treatment plans, discussed patient care with other providers and
family or caregivers (if patient is unable to make decisions), entered orders as appropriate and documented the medical record.
[2024-03-11] MEDS: ANCEF 10 IV (08:25)
[2024-03-11] MEDS: LR 1000 IV ×2 (08:25→18:16)
[2024-03-11] MEDS: FLUSH (NSS) 1 FLUSH IV (08:27)
[2024-03-11 09:17] LABS: NT-proBNP 2300 pg/ml; Troponin I 0.015 ng/ml
[2024-03-11] MEDS: SYMBICORT 160/4.5 MCG INHALER 2 PUFF INH ×2 (12:11→19:33)
[2024-03-11] MEDS: SPIRIVA RESPIMAT 2.5 MCG 2 PUFF INH (12:11)
[2024-03-11] MEDS: ASPIR LOW (ENTERIC COATED) 81 MG PO (12:25)
[2024-03-11] MEDS: LIPITOR 10 MG PO (18:16)
--- NOTE | 2024-03-11 18:17 | PTCARENOTE ---
Pt received from ED on stretcher. Admitted to room. Afib on tele monitor. Pt's at bedside and very concerned re heart failure diagnosis. Educated in depth and HF packet provided. Pt and updated on plan of care. Ringing appropriately. Call
burrows within reach.
[2024-03-11] MEDS: COREG PO (20:51)
[2024-03-12] VITALS (19 sets, daily range): BP systolic 84–133; BP diastolic 54–88; PULSE 84–90; O2SAT 95–96; BMI 29.4
--- NOTE | 2024-03-12 01:50 | PTCARENOTE ---
Assumed care of pt from HERBERT Mejia. Pt AAOx2-3, occasionally disoriented to time. Forgetful at times, bed alarm on. Afib on monitor, HR 70s. +2 edema to RLE, +3 to LLE. Weak pedal pulses. Lungs diminished on RA, occ moist cough. Continent
bowel/bladder. Poor appetite. Scattered scabs on LLE. PVD legs. 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 Assisted pt to bathroom with assist x1 and RW. No c/o dizziness. States he uses cane @baseline. LR @85ml/hr going through L FA IV. VSS. Temp 98.2 oral, BP 98/88,
HR 70, RR 12, SaO2 97% on RA. Able to make needs known. Rings call burrows appropriately. Care ongoing.
[2024-03-12 05:00] LABS: % Basophils 0.4 % (0-2); % Eosinophils 7.4 % (0-6); % Immature Granulocytes 0.4 % (0-0.5); % Lymphocytes 18.8 % (20.5-51.1); % Monocytes 9.9 % (1.7-9.3); % Neutrophils 63.1 % (42.2-75.2); Absolute Eosinophils 0.6 10^3/uL (0-0.7); Absolute Lymphocytes 1.5 10^3/uL (1.2-3.4); Absolute Monocytes 0.8 10^3/uL (0.1-0.6); Absolute Neutrophils 5.1 10^3/uL (1.4-6.5); Hemoglobin 13.4 g/dL (13.0-18.0); Mean Corp Hgb Conc. 33.5 g/dL (33.0-37.0); Mean Corpuscular Hgb 32.1 pg (27.0-31.0); Mean Corpuscular Volume 95.9 fL (80.0-94.0); Mean Platelet Volume 9.9 fL (7.4-10.4); Nucleated Red Blood Cells % 0 % (-); Platelet Count 155 10^3/uL (130-400); Red Blood Cell Count 4.17 10^6/uL (4.70-6.10); Red Cell Dist. Width 14.5 % (11.5-14.5)
[2024-03-12 05:18] LABS: Blood Urea Nitrogen 22 mg/dl (9-20); Calcium 8.1 mg/dl (8.4-10.2); Carbon Dioxide 24 mmol/L (22-30); Chloride 102 mmol/L (98-107); Estimated Creatinine Clearance 63 ml/min; Glucose 81 mg/dl (70-99); Sodium 134 mmol/L (135-145); eGFR > 60.00
[2024-03-12] MEDS: LR 1000 IV ×2 (06:58→17:02)
[2024-03-12] MEDS: SPIRIVA RESPIMAT 2.5 MCG 2 PUFF INH (08:10)
[2024-03-12] MEDS: SYMBICORT 160/4.5 MCG INHALER 2 PUFF INH ×2 (08:11→19:17)
[2024-03-12] MEDS: STERILE WATER FOR INJECTION 10 ML IV (08:45)
[2024-03-12] MEDS: ASPIR LOW (ENTERIC COATED) 81 MG PO (08:45)
[2024-03-12] MEDS: ROCEPHIN 1000 MG IV (08:45)
[2024-03-12] MEDS: ELIQUIS 5 MG PO ×2 (08:45→20:03)
[2024-03-12] MEDS: FLUSH (NSS) 1 FLUSH IV ×2 (08:45→09:00)
[2024-03-12] MEDS: FLUSH (NSS) IV (08:58)
[2024-03-12] MEDS: COREG PO (09:06)
--- NOTE | 2024-03-12 09:11 | PTOTSP ---
Speech Therapy Evaluation:
Pt presents with grossly functional oropharyngeal swallow function at bedside, however remains at an increased risk of aspiration given acute medical illness. CXR with opacity in RLL, likely representing PNA. Given pt passed 3oz swallow screen,
demonstrated no overt s/sx of aspiration at bedside, has WBC that is WNL, no increased respiratory demand, and has no significant predisposing risk factors, recommend to continue baseline diet of regular solids and thin liquids with further ST to
determine if instrumental assessment warranted.
Recommend:
1. Continue IDDSI Level 7 (regular) solids and thin liquids
2. Medications whole in water
3. General aspiration and reflux precautions
4. Strategies: upright out of bed all meals; upright at least 30 minutes following meals; small bites/sips; slow rate; alternate solids and liquids; added moisture
5. CHIROPRACTIC PHYSICIAN to follow re: tolerance of current diet level and to determine if instrumental assessment warranted
--- NOTE | 2024-03-12 09:55 | W.PN.HOSP.TC ---
Today's Communication/Plan
-
IV antibiotics. IVF
Assessment / Plan
Assessment / Plan
Physical exam:
General: Acutely ill
HEENT: Normocephalic, Atraumatic and Moist Mucous Membranes
Respiratory: Bilateral rhonchi in the bases; Negative Wheezes, Rales
Cardiac: Regular Rhythm and S1/S2
GI: Soft, Nontender and Nondistended
Musculoskeletal: No Clubbing, No Cyanosis and mild lower extremity edema with venous stasis
Neuro: Awake, Alert and Oriented, no gross neurodeficit
Psych: Calm
A/P:
Sepsis due to pneumonia:
Stat 1 L of normal saline--> patient hypotensive 81/59 by the time of my evaluation but responded to IV fluid with blood pressure 100/59 after challenge of fluid
Continue with IV fluids maintenance of lactated [place]--> can stop IV fluids later today and if needed can give boluses.
Sepsis due to pneumonia, suspect community-acquired pneumonia
Evidence of sepsis with toxic appearance, fever more than 38.3 Celsius, tachycardia >90, tachypnea >20, leukocytosis, and source of infection likely pneumonia; cannot exclude UTI.
Lactic acid of 1.6
Follow-up blood cultures
Follow-up sputum culture
Check strep urine antigen
Check Legionella urine antigen
CXR seen and evaluated myself and consistent with pneumonia
U/A is abnormal but not much of urinary symptoms
Continue on broad-spectrum antibiotics of ceftriaxone and azithromycin
Check speech therapy for swallow eval
WBC 10.9-->8 today
Continue monitor WBC count and temperature curve.
Paroxysmal atrial fibrillation:
Twelve-lead EKG with A-fib at 92 bpm
Will use rate control with IV Lopressor 5 mg every 6 hours as needed
Hold Coreg for now
Continue anticoagulation, Eliquis 5 mg twice a day
Cardiac monitoring
Chronic systolic congestive heart failure:
Moderate depressed ejection fraction of 46% by last echocardiogram on June 2022
Clinically hypovolemic despite some lower extremity edema
Recently diagnosed with DVT:
Continue Eliquis 5 mg twice a day (he was on 10 mg p.o. twice a day loading dose prior to current doses)
Abnormal BNP:
No signs of heart failure the moment
Diuresis as needed down the road
Normal troponin
Hyperlipidemia:
Continue statin
Asthma:
Continue bronchodilators
Continue home inhalers
DVT prophylaxis:
Eliquis
CODE STATUS:
Full code
Time spent 55-minutes
Anticipated Discharge: 24 - 48 hours
Subjective/Interval History
-
Date of Service: March 12, 2024
Patient feels better overall. Less cough and shortness of breath. Afebrile. Blood pressure fluctuating but improving
Objective Data
-
Labs:
Laboratory Results
03/12/24
04:10
WBC 8.0
Hgb 13.4
Hct 40.0
Plt Count 155
Sodium 134 L
Potassium 4.0
Chloride 102
Carbon Dioxide 24
BUN 22 H
Creatinine 1.0
Glucose 81
Calcium 8.1 L
Vital Signs:
Vital Signs
Temp Pulse Resp BP Pulse Ox
98.1 F 87 18 84/54 96
03/12/24 08:50 03/12/24 09:06 03/12/24 08:15 03/12/24 09:06 03/12/24 08:15
I&O
03/11/24 03/12/24 03/13/24
06:59 06:59 06:59
Intake Total 1000 / 1000
Balance 1000 / 1000
[2024-03-12] MEDS: ZITHROMAX INFUSION 250 IV (10:40)
--- NOTE | 2024-03-12 10:55 | CM ---
Pt seen bedside w/ spouse. Initial assessment completed. Admitted for general weakness and light headedness.
Pt reports that he lives w/ his spouse in a 2STH- 2 steps to enter the home.
Pt is independent w/ the use of a cane. Per spouse, she and pt have plans to get bathroom equipment (grab bars, shower chair, raised toilet seat, etc.)
Pt denies SNF hx, but did engage in OP therapy 20 years ago for both knee replacements. Pt denies VN/PT services in the past
Address, point of contact and insurance verified
PCP: Dr. Cotton
Pharmacy: [facility]
PT/OT evaluated pt today, explained benefits of RW and transitioning to RW from cane. PT/OT will cont to follow while in hospital
Plan: Anticipate home; no needs
--- NOTE | 2024-03-12 12:51 | PTCARENOTE ---
Patient worked with PT/OT this shift and would most likely benefit from a walker for steadying assist. RN encouraged patient to get out of bed to chair for lunch to help with lung expansion/deep breathing. Pt only sat in chair for 1 hour before
requesting to get back in bed. Pt voiding in the bathroom this shift. Pt having SBP anywhere from 80-100 this shift, am coreg held per parameter within order. Pt denies feeling lightheaded on ambulation. See MAR/flowsheets for further care details.
[2024-03-12] MEDS: LIPITOR 10 MG PO (17:03)
[2024-03-12] MEDS: COREG 3.125 MG PO (20:03)
[2024-03-13] VITALS (11 sets, daily range): BP systolic 94–140; BP diastolic 67–97; BMI 29.5
[2024-03-13 04:02] LABS: % Basophils 0.3 % (0-2); % Eosinophils 6.9 % (0-6); % Immature Granulocytes 0.3 % (0-0.5); % Lymphocytes 15.2 % (20.5-51.1); % Neutrophils 65.3 % (42.2-75.2); Absolute Eosinophils 0.5 10^3/uL (0-0.7); Absolute Lymphocytes 1.1 10^3/uL (1.2-3.4); Absolute Monocytes 0.9 10^3/uL (0.1-0.6); Absolute Neutrophils 4.8 10^3/uL (1.4-6.5); Hemoglobin 14.2 g/dL (13.0-18.0); Mean Corpuscular Hgb 32.5 pg (27.0-31.0); Mean Corpuscular Volume 98.4 fL (80.0-94.0); Mean Platelet Volume 10.1 fL (7.4-10.4); Nucleated Red Blood Cells % 0 % (-); Platelet Count 167 10^3/uL (130-400); Red Blood Cell Count 4.37 10^6/uL (4.70-6.10); Red Cell Dist. Width 14.6 % (11.5-14.5); White Blood Cell Count 7.4 10^3/uL (4.8-10.8)
[2024-03-13 04:21] LABS: Blood Urea Nitrogen 18 mg/dl (9-20); Calcium 8.3 mg/dl (8.4-10.2); Carbon Dioxide 25 mmol/L (22-30); Chloride 101 mmol/L (98-107); Estimated Creatinine Clearance 79 ml/min; Glucose 88 mg/dl (70-99); Potassium 4.1 mmol/L (3.5-5.1); Sodium 135 mmol/L (135-145); eGFR > 60.00
--- NOTE | 2024-03-13 04:33 | PTCARENOTE ---
No acute events overnight. Impulsive and forgetful at times. Patient stated that he is going home today 'no matter what.'
[2024-03-13] MEDS: SYMBICORT 160/4.5 MCG INHALER 2 PUFF INH ×2 (08:16→19:40)
[2024-03-13] MEDS: SPIRIVA RESPIMAT 2.5 MCG 2 PUFF INH (08:17)
[2024-03-13] MEDS: FLUSH (NSS) IV ×2 (08:23)
[2024-03-13] MEDS: ROCEPHIN 1000 MG IV (08:24)
[2024-03-13] MEDS: STERILE WATER FOR INJECTION 10 ML IV (08:24)
[2024-03-13] MEDS: ZITHROMAX INFUSION 250 IV (08:24)
[2024-03-13] MEDS: ASPIR LOW (ENTERIC COATED) 81 MG PO (08:24)
[2024-03-13] MEDS: ELIQUIS 5 MG PO ×2 (08:24→19:42)
[2024-03-13] MEDS: COREG 3.125 MG PO ×2 (08:25→19:39)
--- NOTE | 2024-03-13 08:33 | W.PN.HOSP.TC ---
Today's Communication/Plan
-
IV antibiotics. PT OT eval
Assessment / Plan
Assessment / Plan
Physical exam:
General: Acutely ill
HEENT: Normocephalic, Atraumatic and Moist Mucous Membranes
Respiratory: Bilateral rhonchi in the bases; Negative Wheezes, Rales
Cardiac: Regular Rhythm and S1/S2
GI: Soft, Nontender and Nondistended
Musculoskeletal: No Clubbing, No Cyanosis and mild lower extremity edema with venous stasis
Neuro: Awake, Alert and Oriented, no gross neurodeficit
Psych: Calm
A/P:
Sepsis due to pneumonia:
Stat 1 L of normal saline--> patient hypotensive 81/59 by the time of my evaluation but responded to IV fluid with blood pressure 100/59 after challenge of fluid
Continue with IV fluids maintenance of lactated [place]--> can stop IV fluids later today and if needed can give boluses.
Sepsis due to pneumonia, suspect community-acquired pneumonia
Evidence of sepsis with toxic appearance, fever more than 38.3 Celsius, tachycardia >90, tachypnea >20, leukocytosis, and source of infection likely pneumonia.
Lactic acid of 1.6
Follow-up blood cultures no growth
Follow-up sputum culture
Check strep urine antigen and negative
Check Legionella urine antigen and negative
CXR seen and evaluated myself and consistent with pneumonia
U/A is abnormal but not much of urinary symptoms
Continue on broad-spectrum antibiotics of ceftriaxone and azithromycin
Check speech therapy for swallow eval and okay for regular diet
WBC 10.9-->7.4 today
Continue monitor WBC count and temperature curve.
Discussed with at bedside today on 03/13
Paroxysmal atrial fibrillation:
Twelve-lead EKG with A-fib at 92 bpm
Will use rate control with IV Lopressor 5 mg every 6 hours as needed
Continue Coreg for now
Continue anticoagulation, Eliquis 5 mg twice a day
Cardiac monitoring
Chronic systolic congestive heart failure:
Moderate depressed ejection fraction of 46% by last echocardiogram on June 2022
Clinically hypovolemic despite some lower extremity edema upon admission
Recently diagnosed with DVT:
Continue Eliquis 5 mg twice a day (he was on 10 mg p.o. twice a day loading dose prior to current doses)
Abnormal BNP:
No signs of heart failure the moment
Diuresis low-dose today
Normal troponin
Hyperlipidemia:
Continue statin
Asthma:
Continue bronchodilators
Continue home inhalers
DVT prophylaxis:
Eliquis
CODE STATUS:
Full code
Anticipated Discharge: 24 - 48 hours
Subjective/Interval History
-
Date of Service: March 13, 2024
Patient doing better overall today. Less shortness of breath. Some peripheral edema. Afebrile
Objective Data
-
Labs:
Laboratory Results
03/13/24
03:29
WBC 7.4
Hgb 14.2
Hct 43.0
Plt Count 167
Sodium 135
Potassium 4.1
Chloride 101
Carbon Dioxide 25
BUN 18
Creatinine 0.8
Glucose 88
Calcium 8.3 L
Vital Signs:
Vital Signs
Temp Pulse Resp BP Pulse Ox
98.5 F 84 15 136/91 97
03/13/24 07:25 03/13/24 08:25 03/13/24 06:00 03/13/24 08:25 03/12/24 22:00
I&O
03/12/24 03/13/24 03/14/24
06:59 06:59 06:59
Intake Total 1000 / 1000 990 / 990
Balance 1000 / 1000 990 / 990
[2024-03-13] MEDS: LASIX 20 MG IV (12:25)
[2024-03-13] MEDS: TYLENOL 650 MG PO (12:25)
--- NOTE | 2024-03-13 15:56 | CM ---
Patient with Hx CHF, asthma, recent DVT. Monitor shows A fib. Room air. Receiving IV Abx. PT/OT recommended HH.
Met with patient and spoke with Kim by phone;
discussed PT/OT recommendations.
Patient unsure he wants VN for PT/OT.
says she discussed with patient and therapists yesterday, and they were okay with patient going to outpatient PT instead of HH. Agree to request script for outpatient PT.
purchased a RW for patient yesterday - advised her to bring in the walker so PT/OT can adjust it to the correct height.
Plan request script for outpatient PT when closer to discharge.
Plan home.
--- NOTE | 2024-03-13 16:09 | PTCARENOTE ---
Rec'd pt this AM. Upon waking pt was insisting he heard animals and saw one outside his window. RN was able to re-orient pt. states that pt has vivid dreams and is always disoriented in this way upon waking in the morning. He was AAO x3 the
rest of the shift. OOB x1 with walker to bathroom. PT with frequent urination, increased with lasix. Resting comfortably at this time.
[2024-03-13] MEDS: LIPITOR 10 MG PO (17:11)
--- NOTE | 2024-03-13 19:44 | PTCARENOTE ---
Pt received from lorenzo GODINEZ. pt AAOx3, chatting about his puppy. Using rolling walker x1 to urinate on the toilet. RA, lungs clear. afib on monitor. Call light in reach.
--- NOTE | 2024-03-13 21:02 | PTCARENOTE ---
report called to receiving RN, Pt to be transferred to room 426. Awaiting room to be clean.
--- NOTE | 2024-03-13 21:55 | PTCARENOTE ---
Pt arrived to unit @ 2154 as a transfer from IMU. Pt ax2 disoriented to his birthday. Pt able to stand pivot from wheelchair with walker and x2 assistance. Pt has a very unsteady gait and has minor periods of confusion. Pt placed on telemetry and
monitor reading controlled Afib, pt is GRAY especially when standing to commode. Bedside commode and bed alarm implemented for pt safety. Call burrows within reach.
--- NOTE | 2024-03-13 22:00 | PTCARENOTE ---
Pt transferred by this RN to room 426.
--- NOTE | 2024-03-14 03:15 | PTCARENOTE ---
Pt required a medsitter for the duration of the shift d/t continuous impulsive behavior. Pt was fixated on the bathroom and RN stated that it was safer to transfer to the bedside commode since pt's gait is very unsteady. Pt did require frequent
redirection/reorientation in order to use the commode or urinal. Pt also required redirection when he used profanity to this RN and another RN that was present in the room. Pt stated 'it is humiliating to use a urinal maybe you 2 bitches should try
it, here put it to your vagina and pee' Pt proceeds to hand this Rn the urinal to use. RN kindly stated to pt that we only offer uses of the urinal or the commode for your safety d/t being a high fall risks, pt stated he understood but was still
fixated on the bathroom. Rn offered assistance with the urinal and pt refused to go in the urinal and RN said we can try the bedside commode. During transfer pt has moments of stumbling and off balance when standing and RN reiterated things about
safety and how we are doing our jobs and our best to keep you safe and to keep you from falling. Pt later on apologized to Tech on the floor about the behavior he had towards RN. RN stated there is no need to apologize and that being in the
hospital is difficult and being out of your element is hard to deal with and just please allow us to help you when assistance is offered and pt stated ok.
[2024-03-14 03:20] VITALS: BP 99/74
[2024-03-14] MEDS: SPIRIVA RESPIMAT 2.5 MCG 2 PUFF INH (07:30)
[2024-03-14] MEDS: SYMBICORT 160/4.5 MCG INHALER 2 PUFF INH (07:30)
[2024-03-14] MEDS: FLUSH (NSS) IV ×2 (08:40→08:41)
[2024-03-14] MEDS: ASPIR LOW (ENTERIC COATED) 81 MG PO (08:40)
[2024-03-14] MEDS: ELIQUIS 5 MG PO (08:41)
[2024-03-14] MEDS: COREG 3.125 MG PO (08:42)
[2024-03-14] MEDS: ROCEPHIN 1000 MG IV (08:43)
[2024-03-14] MEDS: STERILE WATER FOR INJECTION 10 ML IV (08:45)
[2024-03-14] MEDS: ZITHROMAX INFUSION 250 IV (08:46)
[2024-03-14 08:52] VITALS: BP 128/77
[2024-03-14 08:54] LABS: % Basophils 0.4 % (0-2); % Immature Granulocytes 0.8 % (0-0.5); % Lymphocytes 16.8 % (20.5-51.1); % Monocytes 16.7 % (1.7-9.3); % Neutrophils 62.3 % (42.2-75.2); Absolute Eosinophils 0.2 10^3/uL (0-0.7); Absolute Immature Granulocytes 0.1 10^3/uL (0-0.05); Absolute Lymphocytes 1.3 10^3/uL (1.2-3.4); Absolute Monocytes 1.3 10^3/uL (0.1-0.6); Hematocrit 39.6 % (39.0-52.0); Hemoglobin 13.8 g/dL (13.0-18.0); Mean Corp Hgb Conc. 34.8 g/dL (33.0-37.0); Mean Corpuscular Volume 94.7 fL (80.0-94.0); Nucleated Red Blood Cells % 0 % (-); Platelet Count 201 10^3/uL (130-400); Red Blood Cell Count 4.18 10^6/uL (4.70-6.10); Red Cell Dist. Width 14.2 % (11.5-14.5)
[2024-03-14] MEDS: TYLENOL 650 MG PO (09:04)
[2024-03-14 09:06] LABS: Blood Urea Nitrogen 17 mg/dl (9-20); Calcium 8.3 mg/dl (8.4-10.2); Carbon Dioxide 26 mmol/L (22-30); Chloride 98 mmol/L (98-107); Estimated Creatinine Clearance 79 ml/min; Glucose 92 mg/dl (70-99); Potassium 3.9 mmol/L (3.5-5.1); Sodium 131 mmol/L (135-145); eGFR > 60.00
[2024-03-14] MEDS: SENOKOT-S 1 TABLET PO (09:06)
[2024-03-14 11:06] VITALS: BP 114/72; PULSE 98; O2SAT 93
[2024-03-14 11:29] VITALS: BP 101/57
--- NOTE | 2024-03-14 12:54 | CM ---
CM reviewed chart, patient for discharge today. Patient seen bedside, patient reports he is not interested in VN services at this time, CM offered outpatient PT, patient not interested, reports he does his own therapy/exercises. IMM reviewed with
patient, verbally agreeable, provided with form, placed in chart. Patient reports his will provide transportation home. CM will continue to follow for all discharge planning needs.
Plan; home with , declining VN/outpatient PT.
[2024-03-14 14:12] VITALS: BP 118/82
--- NOTE | 2024-03-14 14:54 | W.PN.HOSP.TC ---
Today's Communication/Plan
-
d/c home
Assessment / Plan
Assessment / Plan
1. Sepsis due to pneumonia
Patient was hypotensive in ER, responded with IV fluid boluses
Sepsis due to pneumonia, suspect community-acquired pneumonia
Evidence of sepsis with toxic appearance, fever more than 38.3 Celsius, tachycardia >90, tachypnea >20, leukocytosis, and source of infection likely pneumonia.
Lactic acid of 1.6
Blood cultures/sputum culture/Legionella urinary antigen negative
Chest x-ray reviewed
Patient currently on IV Rocephin and azithromycin, discharged on course of oral Omnicef and azithromycin
2. Paroxysmal atrial fibrillation:
Twelve-lead EKG with A-fib at 92 bpm
Will use rate control with IV Lopressor 5 mg every 6 hours as needed
Continue Coreg for now
Continue anticoagulation, Eliquis 5 mg twice a day
Cardiac monitoring
3. Chronic systolic congestive heart failure:
Moderate depressed ejection fraction of 46% by last echocardiogram on June 2022
Clinically hypovolemic despite some lower extremity edema upon admission
4. Recently diagnosed with DVT:
Continue Eliquis 5 mg twice a day (he was on 10 mg p.o. twice a day loading dose prior to current doses)
5. Abnormal BNP:
No signs of heart failure the moment
Diuresis low-dose today
Normal troponin
6. Hyperlipidemia:
Continue statin
7. Asthma:
Continue bronchodilators
Continue home inhalers
DVT prophylaxis:Eliquis
CODE STATUS:Full code
More than 30 minutes spent in discharge including
Final examination of the patient
Summarizing hospital stay
Instructions for continuing care to all relevant caregivers
Preparation of discharge records, prescriptions, and referral forms
Total time spent (in minutes): 39 mins
Anticipated Discharge: Today
Subjective/Interval History
-
Date of Service: March 14, 2024
No productive cough
Afebrile
not on o2
Objective Data
-
Labs:
Laboratory Results
03/14/24
07:56
WBC 8.0
Hgb 13.8
Hct 39.6
Plt Count 201 D
Sodium 131 L
Potassium 3.9
Chloride 98
Carbon Dioxide 26
BUN 17
Creatinine 0.8
Glucose 92
Calcium 8.3 L
Vital Signs:
Vital Signs
Temp Pulse Resp BP Pulse Ox
97.6 F 89 18 118/82 94
03/14/24 14:12 03/14/24 14:12 03/14/24 14:12 03/14/24 14:12 03/14/24 14:24
I&O
03/13/24 03/14/24 03/15/24
06:59 06:59 06:59
Intake Total 990 / 990 240 / 240
Output Total 600 / 600
Balance 990 / 990 -360 / -360
Review of Systems
-
Respiratory: Reports No Symptoms
Cardiac: Reports No Symptoms
Abdomen/GI: Reports No Symptoms
Physical Exam
-
General: No Apparent Distress and Comfortable
HEENT: Negative Oxygen
Respiratory: Clear to Auscultation
Cardiac: Regular Rhythm and S1/S2; Negative Murmur or Rub
GI: Soft, Nontender, Nondistended and Normal Bowel Sounds
Musculoskeletal: No Edema
Neuro: Awake, Alert, Oriented, No Motor Deficits and Nonfocal/Grossly Intact
Psych: Calm
--- NOTE | 2024-03-14 16:54 | W.DCSUMMARY ---
Discharge Summary
Discharge Data
Date of Admission: 03/11/24
Date of Discharge: 03/14/24
-
Pending Results: No
Hospital Course
Discharging Physician : Dr Krzysztof Still
Disposition : Home
Primary care physician : Dr Filippo abdullahi
Principal Discharge diagnosis :
Sepsis due to community-acquired pneumonia
Generalized weakness
Hypotension
Chronic Discharge diagnosis :
Paroxysmal atrial fibrillation
Chronic systolic congestive heart failure
Recent deep venous thrombosis
Hyperlipidemia
Asthma
Hospital Course :
Patient is 83-year-old male with no mentioned past medical history came to ER for generalized weakness and lightheadedness. Patient was also having associated some cough and shortness of breath. In ER workup patient was found to be septic and
hypotensive required IV fluid boluses with improvement in blood pressure. Patient diagnosed to have pneumonia and was started on broad-spectrum antibiotics. Blood cultures/sputum culture were negative during the stay. After improvement in
patient's symptoms patient IV antibiotic was changed to oral antibiotics at discharge.
Important imaging findings :
None
Procedure findings :
None
Discharge Plan
-
Patient Disposition: Home (Routine Discharge)
Discharge Diagnosis/Procedures: Pneumonia, sepsis
Condition: Fair
Diet: Regular
Activity: As tolerated
Driving Restrictions: As prior to admission
Bathing Restrictions: OK to Shower
Referrals:
Filippo Abdullahi MD [Family Provider] - in one week
Prescriptions:
New
cefdinir 300 mg capsule
300 mg PO BID Qty: 6 0RF
azithromycin 250 mg tablet
250 mg PO DAILY 6 Days Qty: 3 0RF
albuterol sulfate 90 mcg/actuation HFA aerosol inhaler
2 puff inhalation QID PRN (Reason: shortness of breath or wheezing) Qty: 8.5 0RF
Continued
lovastatin 40 mg Tablet
40 mg PO QPM
carvedilol 3.125 mg Tablet
3.125 mg PO BID
fluticasone propionate 50 mcg/actuation [place],Suspension
1 spray INTRANASAL DAILYPRN PRN (Reason: allergies)
aspirin 81 mg Tablet,Delayed Release (Dr/Ec)
81 mg PO DAILY
Eliquis 5 mg tablet
5 mg PO BID Qty: 60 0RF
vitamin E 268 mg (400 unit) Capsule
268 mg PO DAILY
Breztri Aerosphere 160-9-4.8 mcg/actuation HFA aerosol inhaler
2 inh INHALATION BID
Discontinued
albuterol sulfate 90 mcg/actuation HFA aerosol inhaler
2 puff inhalation QID PRN (Reason: shortness of breath or wheezing) Qty: 8.5 0RF
Discharge Orders:
Discharge Patient (As Directed); Ordered 03/14/24
Ordered By: Krzysztof Still
Discharge Date and Time
Discharge Date/Time: 03/14/24 15:14
Print Language: STATELESS
== END 2024-03-14 15:14 | disposition home or self-care (01) | DRG 871 ==
LOC: 4 WEST ACU 08:00
PROVIDERS: Student in an Organized Health Care Education/Training Program; ADMITTING PHYSICIAN Hospitalist; ATTENDING PHYSICIAN Hospitalist; EMERGENCY PHYSICIAN Emergency Medicine; FAMILY PHYSICIAN Family Medicine
DX: A41.89 Other specified sepsis (principal); J18.9 Pneumonia, unspecified organism; I50.22 Chronic systolic (congestive) heart failure; I11.0 Hypertensive heart disease with heart failure; I48.0 Paroxysmal atrial fibrillation; E78.00 Pure hypercholesterolemia, unspecified; J45.909 Unspecified asthma, uncomplicated; Z86.718 Personal history of other venous thrombosis and embolism; Z85.46 Personal history of malignant neoplasm of prostate; Z87.891 Personal history of nicotine dependence; Z79.01 Long term (current) use of anticoagulants; Z79.899 Other long term (current) drug therapy; Z92.3 Personal history of irradiation
CPT/HCPCS: 70450; 71046; 80048; 80053; 81003; 81015; 83605; 83880; 84484; 85025; 87040; 87086; 87449; 87502; 87811; 87899; 92526; 92610; 93005; 94640; 96361; 96374; 96375; 97116; 97163; 97167; 97530; 99291

== ENCOUNTER 2024-03-15 12:45 | Observation (INO) | payer OTHER, SELFPAY ==
[2024-03-15] VITALS (14 sets, daily range): BP systolic 99–138; BP diastolic 64–96; PULSE 96; O2SAT 97; BMI 29.8; BMI 28.6
--- NOTE | 2024-03-15 07:25 | ED.GENMED ---
History of Present Illness
General
Chief Complaint: Failure to Thrive
Source: patient
Exam Limitations: none
Time Seen by Provider: 03/15/24 07:15
History of Present Illness
History of Present Illness:
83-year-old male presents via EMS from home. He was just discharged yesterday after having sepsis secondary to community-acquired pneumonia. He was discharged on Omnicef and azithromycin. He denies chest pain. He denies shortness of breath.
Today his hydraulic chair stood him up however after standing up he was unable to support his weight and he slid down to the ground. He did not fall. He did not hit his head. He is anticoagulated on Eliquis. He was unable to get off the ground
and the ambulance was called. No other complaints at this time
Past History
Past History
ED Past Medical History: Arrthythmia (A-fib), Asthma, Hypercholesterolemia and Other
ED Past Surgical History: Cholecystectomy and Orthopedic
Social History
Tobacco: Former smoker
Alcohol: None
Drug: None
Employment: Retired
Phy Exam
Physical Exam
Physical Exam:
General: Well-appearing male no acute respiratory distress
HEENT: Normocephalic atraumatic
Heart: Regular rate and rhythm no murmurs
Lungs: Clear no wheeze
Abdomen is soft nontender nondistended no guarding rebound normal bowel sounds
Extremities: No cyanosis or edema
Skin: Warm no rash
Course
Orders/Labs/Results
Orders:
Orders
03/15/24 07:25
PT Consult [Pt Eval And Treat] Urgent
Activity Level: Ambulate
03/15/24 08:05
Comprehensive Metabolic Panel Urgent
03/15/24 08:06
Complete Blood Count/With Diff Urgent
03/15/24 09:44
Case Management Consult ONCE
Case Management Consult: Discharge Planning
Abnormal Lab Results
03/15/24 03/15/24
08:05 08:06
RBC 4.40 L 10^6/uL
(4.70-6.10)
MCV 94.8 H fL
(80.0-94.0)
MCH 32.0 H pg
(27.0-31.0)
Abs Immat Gran (auto) 0.1 H 10^3/uL
(0-0.05)
Absolute Neuts (auto) 7.8 H 10^3/uL
(1.4-6.5)
Absolute Lymphs (auto) 0.9 L 10^3/uL
(1.2-3.4)
Absolute Monos (auto) 1.1 H 10^3/uL
(0.1-0.6)
Immature Gran % 0.7 H %
(0-0.5)
Neutrophils % 75.9 H %
(42.2-75.2)
Lymphocytes % 8.9 L %
(20.5-51.1)
Monocytes % 11.1 H %
(1.7-9.3)
Sodium 134 L mmol/L
(135-145)
Albumin 3.4 L g/dl
(3.5-5.0)
03/15/24 08:06
03/15/24 08:06
Vital Signs
Initial and Last Documented VS:
Initial Vital Signs
Temp Pulse Resp BP Pulse Ox
98.3 F 91 18 138/89 97
03/15/24 07:13 03/15/24 07:13 03/15/24 07:13 03/15/24 07:13 03/15/24 07:13
Last Documented Vital Signs
Temp Pulse Resp BP Pulse Ox
98.3 F 85 22 122/74 96
03/15/24 07:13 03/15/24 10:45 03/15/24 10:30 03/15/24 10:00 03/15/24 10:45
MDM/Problems Addressed
Differential Diagnosis Includes:
Generalized weakness. Recent discharge from hospital yesterday sepsis secondary to community-acquired pneumonia. Currently on antibiotics. Vital signs are stable. Perhaps a level of deconditioning from being in the hospital and recovering from
pneumonia. Will check basic labs. He is not hypotensive. PT consult
*Critical Care Note
Total Time (30-74mins, 75-104mins- exclusive of procedures): Not Applicable
Update Note
Update Note:
Patient evaluated by both physical therapy and case management. Physical therapy recommended skilled rehab. Case management to see patient unable to place today secondary to prolonged authorization time. Will admit for further evaluation
ED Attending Note
-
Portions of this chart may have been created with voice recognition software.� Occasional wrong word or��sound alike� substitutions may have occurred due to the inherent limitations of voice recognition software.
Discharge Plan
Departure
Patient Disposition: Admit
Date of Disposition: 03/15/24
Time of Disposition: 12:27
Presentation/result/management discussed w/ accepting MD/DO: Hospitalist
Discharge Problem:
Weakness
Prescriptions:
No Action
lovastatin 40 mg Tablet
40 mg PO QPM
carvedilol 3.125 mg Tablet
3.125 mg PO BID
fluticasone propionate 50 mcg/actuation [place],Suspension
1 spray INTRANASAL DAILYPRN PRN (Reason: allergies)
aspirin 81 mg Tablet,Delayed Release (Dr/Ec)
81 mg PO DAILY
Eliquis 5 mg tablet
5 mg PO BID Qty: 60 0RF
vitamin E 268 mg (400 unit) Capsule
268 mg PO DAILY
Breztri Aerosphere 160-9-4.8 mcg/actuation HFA aerosol inhaler
2 inh INHALATION R BID
cefdinir 300 mg capsule
300 mg PO BID Qty: 6 0RF
azithromycin 250 mg tablet
250 mg PO DAILY 6 Days Qty: 3 0RF
naproxen sodium [Aleve] 220 mg Tablet
220 mg PO DAILYPRN PRN (Reason: BACK PAINS)
albuterol sulfate 90 mcg/actuation HFA aerosol inhaler
2 puff inhalation R QIDPRN PRN (Reason: shortness of breath or wheezing)
Referrals:
Filippo Cotton MD [Family Provider] -
Interventions
Interventions:
*Risk Screen - Suicide Last Done: 03/15/24 07:13
*General Assessment Last Done: 03/15/24 07:13
*Neglect/Abuse Screening Last Done: 03/15/24 07:13
*ED COVID-19 Vaccine History Last Done: 03/15/24 09:47
Discharge Date and Time
Print Language: AUSTRIAN
[2024-03-15 08:33] LABS: % Basophils 0.4 % (0-2); % Immature Granulocytes 0.7 % (0-0.5); % Lymphocytes 8.9 % (20.5-51.1); % Monocytes 11.1 % (1.7-9.3); % Neutrophils 75.9 % (42.2-75.2); Absolute Eosinophils 0.3 10^3/uL (0-0.7); Absolute Immature Granulocytes 0.1 10^3/uL (0-0.05); Absolute Lymphocytes 0.9 10^3/uL (1.2-3.4); Absolute Monocytes 1.1 10^3/uL (0.1-0.6); Absolute Neutrophils 7.8 10^3/uL (1.4-6.5); Hematocrit 41.7 % (39.0-52.0); Hemoglobin 14.1 g/dL (13.0-18.0); Mean Corp Hgb Conc. 33.8 g/dL (33.0-37.0); Mean Corpuscular Volume 94.8 fL (80.0-94.0); Mean Platelet Volume 9.9 fL (7.4-10.4); Nucleated Red Blood Cells % 0 % (-); Platelet Count 203 10^3/uL (130-400); Red Cell Dist. Width 14.1 % (11.5-14.5); White Blood Cell Count 10.2 10^3/uL (4.8-10.8)
[2024-03-15 10:25] LABS: ALT (SGPT) 30 U/L (0-50); AST (SGOT) 47 U/L (17-59); Albumin 3.4 g/dl (3.5-5.0); Alkaline Phosphatase 65 U/L (38-126); Blood Urea Nitrogen 19 mg/dl (9-20); Calcium 8.4 mg/dl (8.4-10.2); Carbon Dioxide 25 mmol/L (22-30); Chloride 100 mmol/L (98-107); Estimated Creatinine Clearance 79 ml/min; Glucose 80 mg/dl (70-99); Potassium 4.1 mmol/L (3.5-5.1); Sodium 134 mmol/L (135-145); Total Protein 6.4 g/dl (6.3-8.2); eGFR > 60.00
--- NOTE | 2024-03-15 11:30 | CM ---
Addendum entered by Lana Julio RN 03/15/24 14:51:
is agreeable to [facility].
CM will submit authorization request.
Addendum entered by Lana Julio RN 03/15/24 12:55:
CM sent referrals to the following SNF facilities:
[facility]
Original Note:
CM spoke with and she is agreeable to placement. She did not express a preference for placement. CM confirmed that patient's insurance is [employer].
CM to send referrals via [facility].
--- NOTE | 2024-03-15 12:29 | HPS.HSE ---
Family Physician
-
Family Physician: Filippo Cotton
Chief Complaint
-
falls
History of Present Illness
83-year-old male with PMH for atrial fib, asthma, GERD, HLD, vertigo presents after he slid of his chair to the floor. He did not fall. He did not hit his head. He was just discharged yesterday after having sepsis secondary to community-acquired
pneumonia. He was discharged on Omnicef and azithromycin. He denies chest pain. He denies shortness of breath. He is anticoagulated on Eliquis. He was unable to get off the ground and the ambulance was called.denied WHYTE, dizzy or syncope. denied
fever, chills. denied abdominal pain,n,v,d. denied dysuria or hematuria.
patient was evaluated by PT, recommended alternate setting. admitting for further managment.
Medical History
Past Medical History
Past Medical History: Reports Other
Additional Past Medical History:
asthma
paroxysmal atrial fib
insomnia
GERD
macular degeneration
carpel tunnel syndrome
vertigo
HLD
Past Surgical History: Reports Other
Additional Past Surgical History:
hernia repair
cataract extraction
cholecystectomy
right shoulder replacement
cardiovertion
Social History
Tobacco: Non-smoker
Alcohol: None
Drug: None
Living: Alone
Family History
Family History: Not pertinent
Allergies / Home Medications
Allergies reflects when Allergies were last updated in Triage.
Home Medications with original date entered in Triage
Allergy/Medication List:
Allergies
Allergy/AdvReac Type Severity Reaction Status Date / Time
bee venom protein (honey bee) Allergy Severe Anaphylaxis Verified 03/11/24 03:47
seasonal Allergy sneezing, Uncoded 03/11/24 03:47
sinus,
asthma
Home Medications
carvedilol 3.125 mg tablet 3.125 mg PO BID Blood Pressure 01/09/22
fluticasone propionate 50 mcg/actuation nasal spray,suspension 1 spray intranasal DAILYPRN PRN allergies 01/09/22
lovastatin 40 mg tablet 40 mg PO QPM High Cholesterol 01/09/22
aspirin 81 mg tablet,delayed release 81 mg PO DAILY Blood Clot Prevention/Tx 07/20/23
apixaban 5 mg tablet (Eliquis) 5 mg PO BID #60 tabs 02/11/24
budesonide 160 mcg-glycopyr 9 mcg-formot 4.8 mcg/actuation HFA inhaler (LAVEGO) 2 inh inhalation R BID Lung/Breathing Issues 03/11/24
vitamin E 268 mg (400 unit) capsule 268 mg PO DAILY Supplement 03/11/24
azithromycin 250 mg tablet 250 mg PO DAILY 6 days #3 tabs 03/14/24
cefdinir 300 mg capsule 300 mg PO BID #6 caps 03/14/24
albuterol sulfate 90 mcg/actuation aerosol inhaler 2 puff inhalation R QIDPRN PRN shortness of breath or wheezing 03/15/24
naproxen sodium 220 mg tablet (Aleve) 220 mg PO DAILYPRN PRN BACK PAINS 03/15/24
Review of Systems
-
Constitutional: Reports No Symptoms
EENT: Reports No Symptoms
Respiratory: Reports No Symptoms
Cardiac: Reports No Symptoms
Abdomen/GI: Reports No Symptoms
: Reports No Symptoms
Musculoskeletal: Reports No Symptoms
Skin: Reports No Symptoms
Neurological: Reports No Symptoms
Endocrine: Reports No Symptoms
Hematologic/Lymphatic: Reports No Symptoms
Psych: Reports No Symptoms
Physical Exam
Vital Signs
Vital Signs
Temp Pulse Resp BP Pulse Ox
98.3 F 85 22 122/74 96
03/15/24 07:13 03/15/24 10:45 03/15/24 10:30 03/15/24 10:00 03/15/24 10:45
Physical Exam
General: Well Developed, Well Nourished and No Apparent Distress
HEENT: NormoCephalic, Moist mucous membranes and Atraumatic
Respiratory: Clear
Cardiac: S1/S2 and Regular Rhythm; No Murmur or Rub
GI: Soft, Non Tender, Non Distended and Normal Bowel Sounds; No Organomegaly
Rectal: Deferred by Provider
Musculoskeletal: No Clubbing, No Cyanosis and No Edema
Skin: No Rash
Neuro: AO x 3 and Nonfocal/grossly intact
Psych: Calm
Laboratory Results
-
03/15/24 08:06
03/15/24 08:06
Laboratory Results
Total Bilirubin Cancelled 03/15/24 08:06
AST Cancelled 03/15/24 08:06
ALT Cancelled 03/15/24 08:06
Alkaline Phosphatase Cancelled 03/15/24 08:06
Data Reviewed
-
Lab Data: Labs Reviewed by me
Impression/Plan
-
#generalized weakness likely decondition from recent pneumonia
-PT/OT consulted
#pneumonia
-zithro and cefdinir continued
# Paroxysmal atrial fibrillation
Continue Coreg for now
Continue anticoagulation, Eliquis 5 mg twice a day
Cardiac monitoring
#Chronic systolic congestive heart failure:
Moderate depressed ejection fraction of 46% by last echocardiogram on June 2022
Clinically hypovolemic despite some lower extremity edema
# Recently diagnosed with DVT:
Continue Eliquis 5 mg twice a day (he was on 10 mg p.o. twice a day loading dose prior to current doses)
# Hyperlipidemia:
Continue statin
# Asthma:
Continue bronchodilators
Continue home inhalers
DVT prophylaxis:Eliquis
CODE STATUS:Full code
--- NOTE | 2024-03-15 12:50 | W.PN.UPDATE ---
Update Note
Progress Note Update
This note serves as an addendum to the H&P by orthopedic physician CHRISTIN
Thuy SHETTY
HPI, ASSESSMENT & PLAN
83M just discharged to home yesterday for sepsis/pneumonia.
Blood cultures/sputum culture were negative during the stay.
Return to ER: Slid out of his power chair this AM and was too weak too get up.
Vitals stable.
- cont Cefdinir 300 mg capsule 300 mg PO BID Qty 3 more days
- cont Azithromycin 250 mg tablet 250 mg PO DAILY 6 Days
- Seen by PT here who recommended skilled rehab.
- CM saw patient who states auth will take days.
- Admit for weakness pending placement
Date of Admission: 03/11/24 -Date of Discharge: 03/14/24 - Date of readmission 03/15/24
Principal Discharge diagnosis :
Sepsis due to community-acquired pneumonia
Generalized weakness
Hypotension
Chronic Discharge diagnosis : stable
Paroxysmal atrial fibrillation
Chronic systolic congestive heart failure
Recent deep venous thrombosis
Hyperlipidemia
Asthma
- Continued following OP Meds except vitamin E due to increase risk of bleeding while on other thinners like ASA and Eliquis
Avastatin 40 mg PO QPM
Carvedilol 3.125 mg PO BID
fluticasone 50 mcg/actuation 1 spray INTRANASAL DAILY PRN PRN
Aspirin ER 81 mg 81 mg PO DAILY
Eliquis 5 mg BID
Breztri Aerosphere 160-9-4.8 mcg/actuation HFA 2 INH BID
New Rx upon DC that will be continued
Cefdinir 300 mg capsule 300 mg PO BID Qty: 6 0RF
Azithromycin 250 mg tablet 250 mg PO DAILY 6 Days Qty: 3 0RF
Albuterol sulfate 90 mcg/actuation HFA aerosol inhaler 2 puff inhalation QID PRN
Discontinued upon DC as 03/14/24
albuterol sulfate 90 mcg/actuation HFA aerosol inhaler 2 puff inhalation QID PRN
--- NOTE | 2024-03-15 15:20 | CM ---
Addendum entered by Stephani Hunter 03/15/24 15:43:
Transferred to [facility]- and disconnected.
TC to [facility], option 2
Spoke with Caryl Larkin
Pending reference# [id number]
Clinicals faxed to [phone] @ 3:55pm
Plan: [facility] Once [employer] auth received.
Original Note:
Late entry
Call to [employer] to initiate auth 2:50 pm.
[facility] NPI# [id number]
Accepting MD: Dr Lopez NPI# [id number].
3:20 pm, remain on hold with [employer].
--- NOTE | 2024-03-15 15:56 | PTCARENOTE ---
pt received from ED at 1545. Pt a&Ox3, ambulated from stretcher into room with walker. Pt oriented to room. Will continue to monitor.
[2024-03-15] MEDS: LIPITOR 10 MG PO (17:41)
[2024-03-15] MEDS: ELIQUIS 5 MG PO (20:22)
[2024-03-15] MEDS: COREG 3.125 MG PO (20:22)
[2024-03-15] MEDS: OMNICEF 300 MG PO (20:22)
[2024-03-15] MEDS: SYMBICORT 160/4.5 MCG INHALER 2 PUFF INH (21:02)
[2024-03-15] MEDS: NAPROSYN 250 MG PO (21:26)
[2024-03-16 03:00] VITALS: BP 141/86
[2024-03-16 06:00] VITALS: BMI 28.3
[2024-03-16 07:20] VITALS: BP 116/76
[2024-03-16] MEDS: TYLENOL 650 MG PO (08:43)
[2024-03-16] MEDS: ELIQUIS 5 MG PO (08:44)
[2024-03-16] MEDS: COREG 3.125 MG PO (08:44)
[2024-03-16] MEDS: OMNICEF 300 MG PO (08:44)
[2024-03-16] MEDS: ASPIR LOW (ENTERIC COATED) 81 MG PO (08:45)
[2024-03-16] MEDS: ZITHROMAX 250 MG PO (08:45)
[2024-03-16] MEDS: SPIRIVA RESPIMAT 2.5 MCG 2 PUFF INH (09:10)
[2024-03-16] MEDS: SYMBICORT 160/4.5 MCG INHALER 2 PUFF INH (09:10)
[2024-03-16 11:30] VITALS: BP 94/64
--- NOTE | 2024-03-16 11:30 | W.PN.HOSP.TC ---
Today's Communication/Plan
-
d/c planning for snf rehab
Assessment / Plan
Assessment / Plan
#generalized weakness likely decondition from recent pneumonia
-PT/OT recommended rehab placement, CM working
# Community acquired pneumonia
-continue preadmission couse of omnicef/azithromycin
-no fever/dyspnea
# Paroxysmal atrial fibrillation
Continue Coreg for now
Continue anticoagulation, Eliquis 5 mg twice a day
Cardiac monitoring
#Chronic systolic congestive heart failure:
Moderate depressed ejection fraction of 46% by last echocardiogram on June 2022
Clinically hypovolemic despite some lower extremity edema
# Recently diagnosed with DVT:
Continue Eliquis 5 mg twice a day (he was on 10 mg p.o. twice a day loading dose prior to current doses)
# Hyperlipidemia:
Continue statin
# Asthma:
Continue bronchodilators
Continue home inhalers
DVT prophylaxis:Eliquis
CODE STATUS:Full code
Anticipated Discharge: Today
Subjective/Interval History
-
Date of Service: March 16, 2024
no problems overnight
Objective Data
-
Vital Signs:
Vital Signs
Temp Pulse Resp BP Pulse Ox
98.7 F 88 18 94/64 96
03/16/24 11:30 03/16/24 11:30 03/16/24 11:30 03/16/24 11:30 03/16/24 11:30
I&O
03/15/24 03/16/24 03/17/24
06:59 06:59 06:59
Intake Total 720 / 720
Output Total 360 / 360
Balance 360 / 360
Review of Systems
-
Respiratory: Reports No Symptoms
Cardiac: Reports No Symptoms
Abdomen/GI: Reports No Symptoms
Physical Exam
-
General: No Apparent Distress and Comfortable
HEENT: Negative Oxygen
Respiratory: Clear to Auscultation
Cardiac: Regular Rhythm and S1/S2; Negative Murmur or Rub
GI: Soft, Nontender, Nondistended and Normal Bowel Sounds
Musculoskeletal: No Edema
Neuro: Awake, Alert, Oriented, No Motor Deficits and Nonfocal/Grossly Intact
Psych: Calm
--- NOTE | 2024-03-16 12:11 | CM ---
Addendum entered by Sofya Hernandez 03/16/24 15:16:
Auth received physician has cleared patient for discharge, patient will go by w/c van, crop picker arranged for 4pm, cost $85 spouse to pay for transportation.
[facility]
Report [phone]

Original Note:
pineapple plantation manager reviewed patient's chart and spoke with physician and patient is stable for discharge, case packer spoke with admissions at [facility] and bed is available for patient today, case packer reached out to patient's insurance and
spoke with Maru who stated that Auth is still pending. Per admissions at [facility] they have a bed for patient today.
Plan; Skilled placement at [facility] pending Auth.
[2024-03-16 12:37] VITALS: BP 112/79; BP 128/81; PULSE 92; O2SAT 95
--- NOTE | 2024-03-16 14:30 | CM ---
TC from Zenia/Christo/Marlon
insurance approval for skilled rehab at [facility].
Auth# [id number]
Start Date 03/16/24 NRD 03/20/24 (LCD is actually 03/22/24, however updates need to be sent 48 hours prior to LCD)
Updates to
[2024-03-16 15:07] VITALS: BP 121/81
--- NOTE | 2024-03-16 15:59 | W.DCSUMMARY ---
Discharge Summary
Discharge Data
Date of Admission: 03/15/24
Date of Discharge: 03/16/24
-
Pending Results: No
Hospital Course
Discharging Physician : Dr Krzysztof Still
Disposition : SNF rehab
Primary care physician : Dr Filippo Cotton
Principal Discharge diagnosis :
Generalized weakness/mechanical fall
Community-acquired pneumonia
Chronic Discharge diagnosis :
Paroxysmal atrial fibrillation
Chronic systolic congestive heart failure
Recent deep venous thrombosis
Hyperlipidemia
Asthma
Hospital Course :
Patient is 83-year-old male was discharged day before after being treated for community-acquired pneumonia. After being discharged home patient feeling weak and difficulty getting around. Patient apparently slid to ground and was unable to get up
and ambulance was called. Patient was placed under observation and after PT evaluation was recommended for rehab. Patient has been discharged to SNF rehab. Patient to finish remaining course of antibiotic at rehab.
Important imaging findings :
None
Procedure findings :
None
Discharge Plan
-
Patient Disposition: Snf/SNF
Discharge Diagnosis/Procedures: Generalized weakness, CAP
Condition: Fair
Diet: Regular
Activity: As tolerated
Driving Restrictions: As prior to admission
Bathing Restrictions: OK to Shower
Referrals:
Filippo Cotton MD [Family Provider] - in one week
Prescriptions:
Continued
lovastatin 40 mg Tablet
40 mg PO QPM
carvedilol 3.125 mg Tablet
3.125 mg PO BID
fluticasone propionate 50 mcg/actuation [place],Suspension
1 spray INTRANASAL DAILYPRN PRN (Reason: allergies)
aspirin 81 mg Tablet,Delayed Release (Dr/Ec)
81 mg PO DAILY
Eliquis 5 mg tablet
5 mg PO BID Qty: 60 0RF
vitamin E 268 mg (400 unit) Capsule
268 mg PO DAILY
Breztri Aerosphere 160-9-4.8 mcg/actuation HFA aerosol inhaler
2 inh INHALATION R BID
naproxen sodium [Aleve] 220 mg Tablet
220 mg PO DAILYPRN PRN (Reason: BACK PAINS)
albuterol sulfate 90 mcg/actuation HFA aerosol inhaler
2 puff inhalation R QIDPRN PRN (Reason: shortness of breath or wheezing)
azithromycin 250 mg tablet
250 mg PO DAILY 6 Days Qty: 3 0RF
Rx Instructions:
Last dose 03/19 evening
cefdinir 300 mg capsule
300 mg PO BID Qty: 6 0RF
Rx Instructions:
Last dose 03/19 evening
Discharge Orders:
Discharge Patient (As Directed); Ordered 03/16/24
Ordered By: Krzysztof Still
Discharge Date and Time
Print Language: ECUADOREAN
== END 2024-03-16 16:05 ==
LOC: 4 WEST ACU 12:45
PROVIDERS: Physician Assistant; ADMITTING PHYSICIAN Internal Medicine; ATTENDING PHYSICIAN Hospitalist; EMERGENCY PHYSICIAN Emergency Medicine; FAMILY PHYSICIAN Family Medicine
DX: R53.1 Weakness (principal); R62.7 Adult failure to thrive; J18.9 Pneumonia, unspecified organism; E86.1 Hypovolemia; I48.0 Paroxysmal atrial fibrillation; I50.22 Chronic systolic (congestive) heart failure; J45.909 Unspecified asthma, uncomplicated; E78.00 Pure hypercholesterolemia, unspecified; G47.00 Insomnia, unspecified; H35.30 Unspecified macular degeneration; K21.9 Gastro-esophageal reflux disease without esophagitis; Z79.82 Long term (current) use of aspirin; Z79.51 Long term (current) use of inhaled steroids; Z79.01 Long term (current) use of anticoagulants; Z87.891 Personal history of nicotine dependence; Z90.49 Acquired absence of other specified parts of digestive tract; Z96.611 Presence of right artificial shoulder joint; Z91.030 Bee allergy status; Z86.718 Personal history of other venous thrombosis and embolism
CPT/HCPCS: 80053; 85025; 93005; 94640; 97116; 97166; 99285; G0378

== ENCOUNTER → 2024-04-27 08:25 | Outpatient (REF) | payer OTHER, SELFPAY | LOC: HWRAD 08:25 | PROVIDERS: ATTENDING PHYSICIAN Family Medicine | DX: M19.012 Primary osteoarthritis, left shoulder (principal); J45.40 Moderate persistent asthma, uncomplicated; J44.9 Chronic obstructive pulmonary disease, unspecified; I48.11 Longstanding persistent atrial fibrillation; J18.9 Pneumonia, unspecified organism | CPT/HCPCS: 71046 ==

== ENCOUNTER 2024-05-21 14:46 | Emergency (ER) | payer OTHER, SELFPAY ==
[2024-05-21 14:49] VITALS: BP 111/61
[2024-05-21 15:14] LABS: % Basophils 0.6 % (0-2); % Eosinophils 13.6 % (0-6); % Immature Granulocytes 0.4 % (0-0.5); % Lymphocytes 18.7 % (20.5-51.1); % Monocytes 11.3 % (1.7-9.3); % Neutrophils 55.4 % (42.2-75.2); Absolute Basophils 0.1 10^3/uL (0-0.2); Absolute Eosinophils 1.1 10^3/uL (0-0.7); Absolute Lymphocytes 1.4 10^3/uL (1.2-3.4); Absolute Monocytes 0.9 10^3/uL (0.1-0.6); Absolute Neutrophils 4.3 10^3/uL (1.4-6.5); Hemoglobin 13.7 g/dL (13.0-18.0); Mean Corp Hgb Conc. 33.4 g/dL (33.0-37.0); Mean Corpuscular Hgb 31.8 pg (27.0-31.0); Mean Corpuscular Volume 95.1 fL (80.0-94.0); Nucleated Red Blood Cells % 0 % (-); Platelet Count 280 10^3/uL (130-400); Red Blood Cell Count 4.31 10^6/uL (4.70-6.10); Red Cell Dist. Width 14.4 % (11.5-14.5); White Blood Cell Count 7.7 10^3/uL (4.8-10.8)
[2024-05-21 15:26] LABS: ALT (SGPT) 18 U/L (0-50); AST (SGOT) 21 U/L (17-59); Albumin 3.2 g/dl (3.5-5.0); Alkaline Phosphatase 80 U/L (38-126); Blood Urea Nitrogen 19 mg/dl (9-20); Calcium 8.7 mg/dl (8.4-10.2); Carbon Dioxide 24 mmol/L (22-30); Chloride 105 mmol/L (98-107); Glucose 122 mg/dl (70-99); Potassium 4.3 mmol/L (3.5-5.1); Sodium 136 mmol/L (135-145); Total Bilirubin 0.4 mg/dl (0.2-1.3); Total Protein 6.4 g/dl (6.3-8.2); eGFR > 60.00
[2024-05-21 15:38] LABS: NT-proBNP 1360 pg/ml; Troponin I < 0.012 ng/ml
--- NOTE | 2024-05-21 18:50 | ED.GENMED ---
History of Present Illness
General
Chief Complaint: Cardiac Symptoms
Source: patient
Exam Limitations: none
Time Seen by Provider: 05/21/24 18:24
History of Present Illness
History of Present Illness:
83-year-old male history of A-fib on Eliquis, CHF presents complaining of onset of left-sided chest pain that radiated to his back around noon today. He was sitting watching TV at the onset. Hurts to move. At the onset of his pain he was having
trouble breathing. The pain is since almost resolved. There is no new left arm numbness. He has not missed any doses of his Eliquis. His put a Salonpas on his back and it seemed to help. He denies a fever or cough. No other complaints
Past History
Past History
ED Past Medical History: Arrthythmia (A-fib), Asthma, Hypercholesterolemia and Other
ED Past Surgical History: Cholecystectomy and Orthopedic
Social History
Tobacco: Former smoker
Alcohol: None
Drug: None
Employment: Retired
Phy Exam
Physical Exam
Physical Exam:
General: Well-appearing male no acute respiratory distress
HEENT: Normocephalic atraumatic
Heart: Irregular rate and rhythm
Lungs: Clear no obvious wheeze or rales
Abdomen is soft nontender nondistended
Extremities: No cyanosis, 1+ pitting edema bilateral lower extremities
Skin: Warm no rash
Course
Orders/Labs/Results
Orders:
Orders
05/21/24 14:47
Electrocardiogram (*1) Urgent
Reason for Study: Chest Pain
EKG- Treatment ONCE
05/21/24 14:51
CR Chest - 2 Views Urgent
Comment:
Reason For Exam: chest pain
05/21/24 15:03
Complete Blood Count/With Diff Urgent
Comprehensive Metabolic Panel Urgent
NT-proBNP Urgent
Troponin I Urgent
05/21/24 18:53
Troponin I Urgent
Abnormal Lab Results
05/21/24
15:03
RBC 4.31 L 10^6/uL
(4.70-6.10)
MCV 95.1 H fL
(80.0-94.0)
MCH 31.8 H pg
(27.0-31.0)
Absolute Monos (auto) 0.9 H 10^3/uL
(0.1-0.6)
Absolute Eos (auto) 1.1 H 10^3/uL
(0-0.7)
Lymphocytes % 18.7 L %
(20.5-51.1)
Monocytes % 11.3 H %
(1.7-9.3)
Eosinophils % 13.6 H %
(0-6)
Glucose 122 H mg/dl
(70-99)
Albumin 3.2 L g/dl
(3.5-5.0)
05/21/24 15:03
05/21/24 15:03
Vital Signs
Initial and Last Documented VS:
Initial Vital Signs
Temp Pulse Resp BP Pulse Ox
98.3 F 78 20 111/61 99
05/21/24 14:49 05/21/24 14:49 05/21/24 14:49 05/21/24 14:49 05/21/24 14:49
Last Documented Vital Signs
Temp Pulse Resp BP Pulse Ox
98.3 F 78 20 111/61 99
05/21/24 14:49 05/21/24 14:49 05/21/24 14:49 05/21/24 14:49 05/21/24 14:49
MDM/Problems Addressed
Differential Diagnosis Includes:
Chest pain now almost resolved. When I entered the room, the patient was dressed and wanted to leave. Initial troponin was undetectable but did recommend a repeat troponin which is pending. Chest x-ray also pending. EKG shows atrial
fibrillation. Given resolution of discomfort, I do not suspect dissection. He is anticoagulated would be unlikely for PE.
*Critical Care Note
Total Time (30-74mins, 75-104mins- exclusive of procedures): Not Applicable
Update Note
Update Note:
Initial and repeat troponin both undetectable. Chest x-ray clear. Symptoms have resolved after placing Salonpas on his back. I suspect discomfort is most likely musculoskeletal. Patient itching to go home. Will advise that he follow-up with his
providers
ED Attending Note
-
Portions of this chart may have been created with voice recognition software.� Occasional wrong word or��sound alike� substitutions may have occurred due to the inherent limitations of voice recognition software.
Discharge Plan
Departure
Patient Disposition: Home (Routine Discharge)
Date of Disposition: 05/21/24
Time of Disposition: 19:48
Patient with high blood pressure during this ER visit?: No
Discharge Problem:
Chest pain
Instructions: Chest Pain (DC)
Prescriptions:
No Action
lovastatin 40 mg Tablet
40 mg PO QPM
carvedilol 3.125 mg Tablet
3.125 mg PO BID
fluticasone propionate 50 mcg/actuation [place],Suspension
1 spray INTRANASAL DAILYPRN PRN (Reason: allergies)
aspirin 81 mg Tablet,Delayed Release (Dr/Ec)
81 mg PO DAILY
Eliquis 5 mg tablet
5 mg PO BID Qty: 60 0RF
vitamin E 268 mg (400 unit) Capsule
268 mg PO DAILY
Breztri Aerosphere 160-9-4.8 mcg/actuation HFA aerosol inhaler
2 inh INHALATION R BID
naproxen sodium [Aleve] 220 mg Tablet
220 mg PO DAILYPRN PRN (Reason: BACK PAINS)
albuterol sulfate 90 mcg/actuation HFA aerosol inhaler
2 puff inhalation R QIDPRN PRN (Reason: shortness of breath or wheezing)
azithromycin 250 mg tablet
250 mg PO DAILY 6 Days Qty: 3 0RF
Rx Instructions:
Last dose 03/19 evening
cefdinir 300 mg capsule
300 mg PO BID Qty: 6 0RF
Rx Instructions:
Last dose 03/19 evening
Referrals:
Filippo Cotton MD [Family Provider] -
Activity Restrictions/Additional Instructions:
Please return here for worsening symptoms otherwise follow-up with your doctors
Interventions
Interventions:
*Risk Screen - Suicide Last Done: 05/21/24 18:54
*General Assessment Last Done: 05/21/24 14:49
*Neglect/Abuse Screening Last Done: 05/21/24 18:54
*ED- Fall Risk Assessment Last Done: 05/21/24 18:54
*ED COVID-19 Vaccine History Last Done: 05/21/24 18:54
ED- Cardiac Assessment Last Done: 05/21/24 18:59
ED- Pulmonary Assessment Last Done: 05/21/24 18:59
Discharge Date and Time
Print Language: ANGOLAN
[2024-05-21 19:36] LABS: Troponin I < 0.012 ng/ml
== END 2024-05-21 20:06 | disposition home or self-care (01) ==
LOC: EMR 14:46
PROVIDERS: Emergency Medicine; Physician Assistant; EMERGENCY PHYSICIAN Emergency Medicine; FAMILY PHYSICIAN Family Medicine
DX: R07.89 Other chest pain (principal); I48.91 Unspecified atrial fibrillation; I50.9 Heart failure, unspecified; E78.00 Pure hypercholesterolemia, unspecified; J45.909 Unspecified asthma, uncomplicated; Z79.01 Long term (current) use of anticoagulants; Z87.891 Personal history of nicotine dependence; Z90.49 Acquired absence of other specified parts of digestive tract
CPT/HCPCS: 99285; 71046; 80053; 83880; 84484; 85025; 93005

== ENCOUNTER → 2024-05-31 07:25 | Outpatient (REF) | payer OTHER, SELFPAY | LOC: HWRAD 07:25 | PROVIDERS: ATTENDING PHYSICIAN Family Medicine | DX: M25.532 Pain in left wrist (principal) | CPT/HCPCS: 73110 ==

== ENCOUNTER → 2024-06-30 07:49 | Outpatient (REF) | payer OTHER, SELFPAY | LOC: WOUND 07:49 | PROVIDERS: ATTENDING PHYSICIAN Surgery; FAMILY PHYSICIAN Family Medicine | DX: I87.311 Chronic venous hypertension (idiopathic) with ulcer of right lower extremity (principal); L97.212 Non-pressure chronic ulcer of right calf with fat layer exposed; I48.0 Paroxysmal atrial fibrillation; J44.9 Chronic obstructive pulmonary disease, unspecified | CPT/HCPCS: 99203 ==

== ENCOUNTER → 2024-09-23 07:13 | Outpatient (REF) | payer OTHER, SELFPAY | LOC: HWRCS 07:13 | PROVIDERS: ATTENDING PHYSICIAN Nurse Practitioner; FAMILY PHYSICIAN Family Medicine | DX: R60.0 Localized edema (principal); I42.9 Cardiomyopathy, unspecified | CPT/HCPCS: 93306 ==

== ENCOUNTER 2024-09-28 11:33 | Emergency (ER) | payer OTHER, SELFPAY ==
[2024-09-28 11:34] VITALS: BP 109/84
[2024-09-28 12:26] VITALS: BP 101/82
[2024-09-28 13:00] VITALS: BP 123/77
[2024-09-28 13:06] VITALS: BMI 30.1
[2024-09-28] MEDS: NORCO 5/325 2 TABLET PO (13:19)
[2024-09-28 14:48] VITALS: BP 111/79
[2024-09-28 15:00] VITALS: BP 106/65
--- NOTE | 2024-09-28 15:55 | ED.GENMED ---
History of Present Illness
General
Chief Complaint: Fall
Source: patient and spouse
Time Seen by Provider: 09/28/24 11:55
History of Present Illness
History of Present Illness:
Note:
CHIEF COMPLAINT(S)
Rib and knee pain following a fall.
HISTORY OF PRESENT ILLNESS
The patient is an 83-year-old male who experienced a fall approximately two hours prior to presentation. He reports that he was walking in a hallway at a [employer] center when his foot got caught in a newly placed rug, causing him to fall and land on
his chest. As a result, the patient is experiencing pain in the chest area, specifically around the fifth and sixth ribs, suggesting a possible rib fracture. He also reports a small abrasion on his left knee, but no significant pain in the abdomen
or difficulty breathing. The patient is currently managing the pain with [id number]-zdk-[id number] medications such as Tylenol, but he has been offered pain management with narcotics to alleviate the rib pain.
The patient did not hit his head during the fall and denies having a headache or any respiratory discomfort. He is currently on blood thinners, specifically Apixaban (Eliquis), and due to this medication, there is a consideration for imaging to rule
out internal injuries and ensure there is no head injury despite the lack of symptoms.
The patient has a history of anterior cruciate ligament (ACL) repair with screws in the left knee, though the current injury does not seem to have exacerbated any chronic knee issues.
SOCIAL HISTORY
The patient humorously mentioned taking '[place]' as pain management, indicating past or current alcohol use, but clarified that he was referring to tmna-rtn-[id number] medications like Tylenol and a recent intake of baby aspirin.
MEDICATIONS
Apixaban (Eliquis).
REVIEW OF SYSTEMS
- Respiratory: No shortness of breath, respirations not labored.
- Musculoskeletal: Pain in chest area over the ribs, abrasion on the left knee.
- Neurological: No headache, patient oriented and cooperative.
PHYSICAL EXAM
- General: Alert, no acute distress.
- Skin: Warm, dry. Small abrasion on left knee.
- Neck: Supple, trachea midline.
- Cardiovascular: Normal peripheral perfusion, no edema.
- Respiratory: Respirations are non-labored, pain at anterior left second rib on palpation.
- Musculoskeletal: Normal range of motion, except localized pain over ribs, small abrasion on left knee.
- Neurological: Alert and oriented to person, place, time, and situation.
PLAN
- Obtain imaging for ribs and knee to assess for fractures; consider a CT scan of the chest to evaluate rib injury severity and potential lung involvement.
- Due to anticoagulation therapy with Apixaban (Eliquis), obtain a CT scan of the head to rule out intracranial bleeding despite the absence of head trauma.
- Provide pain management with oral narcotics to manage rib pain.
- Apply dressing to the abrasion on the left knee.
DIFFERENTIAL DIAGNOSIS
The Differential Diagnosis includes, in no particular order and is not limited to:
1. Rib fracture
2. Costochondral injury
3. Contusion of the chest wall
4. Muscle strain
5. Knee abrasion
6. Intracranial hemorrhage (precautionary due to anticoagulant use)
7. Pulmonary contusion
8. Pneumothorax
9. Subcutaneous emphysema
10. Deep vein thrombosis (DVT) secondary to immobility or trauma
CARE-UPDATE
09/28/24 - 15:55
Reviewed knee x-ray results; confirmed negative for fracture or acute abnormalities.
Disposition:
SUMMARY OF ENCOUNTER
The patient is an 83-year-old male who presented following a fall, resulting in a left anterior second rib fracture. The findings are consistent with the physical examination, which identified localized pain in the rib area. The patient is stable,
and imaging shows no pulmonary effusion or pneumothorax, and a CT scan of the head was negative, likely influenced by the anticoagulant Apixaban (Eliquis).
DISPOSITION
Discharge.
ASSESSMENT
The patient has an anterior second rib fracture with no additional thoracic complications.
PLAN
The treatment plan includes managing pain, recommending the use of incentive spirometry 10 times per hour while awake to prevent pulmonary complications, and educating the patient on the reasons for returning to the emergency department if symptoms
worsen.
INDEPENDENT REVIEW OF LABS AND INTERPRETATION OF TESTS
- My independent interpretation of the head CT is negative for intracranial hemorrhage or other abnormalities.
- My independent interpretation of the chest imaging confirms a left anterior second rib fracture without evidence of pneumothorax or pulmonary effusion.
PATIENT EDUCATION AND COUNSELING
The patient was advised to use incentive spirometry routinely while awake to maintain lung function and prevent complications due to the rib fracture. The patient was counseled on warning signs that would necessitate a return to the emergency
department, such as increased pain or breathing difficulties. The patient expressed understanding and agreement with the care plan.
FOLLOW-UP INSTRUCTIONS
The patient should follow up with a primary care physician to monitor healing progress and manage pain.
MEDICATION RECONCILIATION
The patient is currently on Apixaban (Eliquis). Pain management with oral medications and bcem-bqt-wihxidq supplements has been discussed.
MEDICAL DECISION MAKING
- Number and Complexity of Problems Addressed: Chronic conditions affecting care include rib fracture. Differential diagnosis considered: rib fracture, costochondral injury, contusion of the chest wall, muscle strain, knee abrasion, intracranial
hemorrhage (precautionary due to anticoagulant use), pulmonary contusion, pneumothorax, subcutaneous emphysema.
- Data:
- Category 1: My independent interpretation of the head CT and chest imaging. Considerations for additional imaging (i.e., ultrasound) were made but deemed unnecessary as current imaging was sufficient.
- Risk: Consideration of Admission/Observation: Escalation of care including admission/observation was considered given the complexity and risk of the patients presenting complaint, exam findings, and underlying comorbidities. However, the patient
is deemed safe for outpatient management with close follow-up. The work-up is reassuring, symptoms are well controlled upon reevaluation, reexamination is reassuring, vitals are stable, and the patient is agreeable with discharge and reliable for
follow-up.
DIAGNOSIS
- Fracture of rib(s), unspecified, initial encounter (S22.39XA).
Past History
Past History
ED Past Medical History: Arrthythmia (A-fib), Asthma, Hypercholesterolemia and Other
ED Past Surgical History: Cholecystectomy and Orthopedic
Social History
Tobacco: Former smoker
Alcohol: None
Drug: None
Employment: Retired
Phy Exam
Physical Exam
Physical Exam:
.
Course
Orders/Labs/Results
Orders:
Orders
09/28/24 11:34
EKG [Electrocardiogram (*1)] Urgent
Reason for Study: Chest Pain
EKG- Treatment ONCE
09/28/24 12:10
CT Chest W/o Iv Contrast Urgent
Comment:
Reason For Exam: fall, L sided pain
CT Head W/o Iv Contrast Urgent
Comment:
Reason For Exam: fall, on eliquis
Knee, Left 4 or More Views [CR Knee - Left 4 Or More View*] Urgent
Comment:
Reason For Exam: fall
09/28/24 13:17
Hydrocodone 5/APAP 325 [[place] 5/325] 2 tablet PO NOW STA
Vital Signs
Initial and Last Documented VS:
Initial Vital Signs
Temp Pulse Resp BP Pulse Ox
98.6 F 98 20 109/84 98
09/28/24 11:34 09/28/24 11:34 09/28/24 11:34 09/28/24 11:34 09/28/24 11:34
Last Documented Vital Signs
Temp Pulse Resp BP Pulse Ox
98.6 F 73 12 106/65 99
09/28/24 11:34 09/28/24 15:15 09/28/24 15:15 09/28/24 15:00 09/28/24 13:30
*Pulse Oximetry
SaO2: 99
Oxygen Mode of Delivery: Room air
Patient hypoxic: no
*Critical Care Note
Total Time (30-74mins, 75-104mins- exclusive of procedures): Not Applicable
ED Attending Note
-
Portions of this chart may have been created with voice recognition software.� Occasional wrong word or��sound alike� substitutions may have occurred due to the inherent limitations of voice recognition software.
Discharge Plan
Departure
Patient Disposition: Home (Routine Discharge)
Date of Disposition: 09/28/24
Time of Disposition: 15:55
Patient with high blood pressure during this ER visit?: No
Discharge Problem:
Fracture of rib, Abrasion
Instructions: Contusion (DC), Skin Abrasions (DC), Rib Fracture
Prescriptions:
New
hydrocodone-acetaminophen 5-325 mg tablet
2 tab PO Q6H PRN (Reason: Pain) Qty: 15 0RF
No Action
lovastatin 40 mg Tablet
40 mg PO QPM
carvedilol 3.125 mg Tablet
3.125 mg PO BID
fluticasone propionate 50 mcg/actuation [place],Suspension
1 spray INTRANASAL DAILYPRN PRN (Reason: allergies)
aspirin 81 mg Tablet,Delayed Release (Dr/Ec)
81 mg PO DAILY
Eliquis 5 mg tablet
5 mg PO BID Qty: 60 0RF
vitamin E 268 mg (400 unit) Capsule
268 mg PO DAILY
Breztri Aerosphere 160-9-4.8 mcg/actuation HFA aerosol inhaler
2 inh INHALATION R BID
naproxen sodium [Aleve] 220 mg Tablet
220 mg PO DAILYPRN PRN (Reason: BACK PAINS)
albuterol sulfate 90 mcg/actuation HFA aerosol inhaler
2 puff inhalation R QIDPRN PRN (Reason: shortness of breath or wheezing)
azithromycin 250 mg tablet
250 mg PO DAILY 6 Days Qty: 3 0RF
Rx Instructions:
Last dose 1/ evening
cefdinir 300 mg capsule
300 mg PO BID Qty: 6 0RF
Rx Instructions:
Last dose 03/19 evening
Referrals:
Filippo Cotton MD [Family Provider, [facility]]
Activity Restrictions/Additional Instructions:
Please use incentive spirometer 10 times per hour while awake. Return immediately for shortness of breath, fevers, worsening pain or any other concerns.
Interventions
Interventions:
*Risk Screen - Suicide Last Done: 09/28/24 11:34
*General Assessment Last Done: 09/28/24 11:34
*Neglect/Abuse Screening Last Done: 09/28/24 13:06
*ED- Fall Risk Assessment Last Done: 09/28/24 13:06
*ED COVID-19 Vaccine History Last Done: 09/28/24 13:06
ED-Musculoskeletal Assessment Last Done: 09/28/24 13:10
ED- Neurological Assessment Last Done: 09/28/24 13:10
ED-Skin Assessment Last Done: 09/28/24 13:10
Discharge Date and Time
Print Language: GEORGIAN
== END 2024-09-28 16:00 | disposition home or self-care (01) ==
LOC: EMR 11:33
PROVIDERS: EMERGENCY PHYSICIAN Emergency Medicine; FAMILY PHYSICIAN Family Medicine
DX: S22.32XA Fracture of one rib, left side, initial encounter for closed fracture (principal); S80.212A Abrasion, left knee, initial encounter; W18.09XA Striking against other object with subsequent fall, initial encounter; E78.00 Pure hypercholesterolemia, unspecified; J45.909 Unspecified asthma, uncomplicated; I48.91 Unspecified atrial fibrillation; Z79.01 Long term (current) use of anticoagulants; Z87.891 Personal history of nicotine dependence
CPT/HCPCS: 99284; 70450; 71250; 73564; 93005

== ENCOUNTER 2024-09-30 07:10 | Emergency (ER) | payer OTHER, SELFPAY ==
[2024-09-30 07:11] VITALS: BP 137/81
--- NOTE | 2024-09-30 07:26 | ED.MUSCINJ ---
HPI-Injury
General
Chief Complaint: Musculo-Skeletal Complaint
Source: patient
Exam Limitations: none
Time Seen by Provider: 09/30/24 07:25
Nursing documentation reviewed up to this point in time: agreed with
History of Present Illness-Injury
Initial Injury comments:
83 yo male w h/o Afib on Eliquis, fall and evaluated here 2 days ago, dx with anterior 2nd rib fx, DC'd on incentive spirometry and Hydrocodone/Apap . He is back today for 'I can't stand this pain.' States ongoing rib pain, describing it as
'constant' and 'horrible.' The pain has not improved with the prescribed pain medication. The severity of the pain worsened since yesterday. The patient has not yet used the spirometer provided for breathing exercises. He denies having trouble
breathing. The location of the most severe pain seems to be concentrated in the rib fracture area.
Past History
Past History
ED Past Medical History: Arrthythmia (A-fib), Asthma and Hypercholesterolemia
ED Past Surgical History: Cholecystectomy and Orthopedic
Social History
Tobacco: Former smoker
Alcohol: None
Drug: None
Employment: Retired
Review of Systems
Review of Systems
Allergies reviewed?: Yes
All Other Systems: ROS reviewed and negative except as documented in HPI and ROS
Constitutional: Denies fever
Respiratory: Denies trouble breathing
ABD/GI: Denies abdominal pain
Musculoskeletal: Reports other (left upper chest wall pain. Chronic pain, limited ROM left shoulder, to have shoulder replacement surgery)
Skin: Reports no symptoms
Phy Exam
Physical Exam
Physical Exam:
GENERAL: No acute distress. A&Ox3.
CONSTITUTIONAL: Afebrile.
EYES: clear, conjunctivae normal
ENMT: moist mucus membranes
RESPIRATORY: Regular respirations, nonlabored, lungs clear.
CARDIOVASCULAR: Regular rate and rhythm, no murmurs, no rubs.
GI: Soft, nontender, normal BS
MUSCULOSKELETAL: Points to area over left upper pectoris to locate pain. Chronic pin with limited ROM L shoulder. Moves with ease. Well perfused.
SKIN: Warm, dry, pink
PSYCH: Normal mood and affect. Well kept, interactive and appropriate
NEUROLOGIC: Awake, alert and oriented. No focal neurological deficits
Injury Course
Orders/Labs/Results
Orders:
Orders
09/30/24
Electrocardiogram (*1) Stat
Comment: DONE
09/30/24 08:02
Electrocardiogram (*1) Urgent
Reason for Study: Chest Pain
EKG- Treatment ONCE
09/30/24 08:16
Lidocaine [Lidocaine 4% Patch] 1 patch TOPICAL NOW STA
Apply Lidocaine patch(s) to:: left upper chest wall
Switchman Supervisor consulted with Physician
Switchman Supervisor consulted with physician?: Yes (Khadra)
MDM/Problems Addressed
Differential Diagnosis Includes:
Pneumothorax
Rib fracture w increased pain
Hemothorax
MDM/Problems Addressed:
83 yo male w h/o Afib on Eliquis, fall and evaluated here 2 days ago, dx with anterior 2nd rib fx, DC'd on incentive spirometry and Hydrocodone/Apap , rib belt. He is back today for 'I can't stand this pain.' States ongoing rib pain, describing
it as 'constant' and 'horrible.' The pain has not improved with the prescribed pain medication. The severity of the pain worsened since yesterday. The patient has not yet used the spirometer provided for breathing exercises. He denies having trouble
breathing. The location of the most severe pain seems to be concentrated in the rib fracture area. Rib belt not helping.
Plan:
Considered repeat chest CT
EKG to r/o cardiac etiology
No hypoxia, pt appears in no distress. Localized pain. Minimal pain at rest, worse with movement. Lungs CTA with good BS throughout. No suspicion of pneumothorax, hemothorax. No repeat CT indicated at this time. Case discussed with Dr. Gaviria who
agrees
Pain area too high up for rib belt relief.
Pain minimal at rest, moving makes it was worse.
EKG Afib Rate 79
Pt informed of of normal exam other than the pain. Informed of usual worsening pain 1-3 days after injury. He states 'that's reassuring.'
Plan: Continue current pain medication
Apply cold compresses
Incentive spirometry
Lidocaine patch
Called and updated her, all questions answered. She requested more pain medication. Informed her to have him take ONE Hydrocodone with ONE Extra strength tylenol q 8hr. (Has been taking 2 Hydrocodone every 6 hours and only has 4 left) Rx for #6
Hydrocodone sent to pharmacy
Acute Exacerbation and/or Progression of Chronic Illness: Arrhythmia (on Eliquis)
*Pulse Oximetry
SaO2: 97
Oxygen Mode of Delivery: Room air
Patient hypoxic: no
*EKG
EKG Intrepretation Date: 09/30/24
Interpretation: abnormal
Heart Rate: 79
Rate: normal
Rhythm: a-fib
[place]: normal axis
QRS Pattern: normal QRS
Ischemia: no ischemia
*Critical Care Note
Total Time (30-74mins, 75-104mins- exclusive of procedures): Not Applicable
Patient Management
Social determinants of health affecting care: Strong social support ( healthy, supportive)
ED Attending Note
-
Portions of this chart may have been created with voice recognition software.� Occasional wrong word or��sound alike� substitutions may have occurred due to the inherent limitations of voice recognition software.
Discharge Plan
Departure
Patient Disposition: Home (Routine Discharge)
Date of Disposition: 09/30/24
Time of Disposition: 08:20
Patient with high blood pressure during this ER visit?: No
Condition: Good
Discharge Problem:
Fractured rib
Instructions: Lidocaine (Topical), Using Cold for Pain, Rib fracture or bruised rib - ED discharge instructions
Prescriptions:
New
lidocaine 4 % adhesive patch,medicated
1 patch topical Q24H PRN (Reason: Pain) Qty: 15 0RF
hydrocodone-acetaminophen 5-325 mg tablet
1 tab PO Q8H PRN (Reason: Pain) Qty: 6 0RF
No Action
lovastatin 40 mg Tablet
40 mg PO QPM
carvedilol 3.125 mg Tablet
3.125 mg PO BID
fluticasone propionate 50 mcg/actuation [place],Suspension
1 spray INTRANASAL DAILYPRN PRN (Reason: allergies)
aspirin 81 mg Tablet,Delayed Release (Dr/Ec)
81 mg PO DAILY
Eliquis 5 mg tablet
5 mg PO BID Qty: 60 0RF
vitamin E 268 mg (400 unit) Capsule
268 mg PO DAILY
Breztri Aerosphere 160-9-4.8 mcg/actuation HFA aerosol inhaler
2 inh INHALATION R BID
naproxen sodium [Aleve] 220 mg Tablet
220 mg PO DAILYPRN PRN (Reason: BACK PAINS)
albuterol sulfate 90 mcg/actuation HFA aerosol inhaler
2 puff inhalation R QIDPRN PRN (Reason: shortness of breath or wheezing)
azithromycin 250 mg tablet
250 mg PO DAILY 6 Days Qty: 3 0RF
Rx Instructions:
Last dose 1/11 evening
cefdinir 300 mg capsule
300 mg PO BID Qty: 6 0RF
Rx Instructions:
Last dose 1/11 evening
hydrocodone-acetaminophen 5-325 mg tablet
2 tab PO Q6H PRN (Reason: Pain) Qty: 15 0RF
Referrals:
Filippo Cotton MD [Family Provider, Family Practice] - As needed
Activity Restrictions/Additional Instructions:
As we discussed, your workup here today shows nothing worrisome.
It is typical to have worse pain for 2 to 3 days after an injury
Use your pain medication as follows: ONE Hydrocodone/Acetaminophen tablet with ONE Extra strength Tylenol every 8 hours as needed for pain
I sent a prescription to your pharmacy for Lidocaine patches. Remove every 24 hours and replace as needed for pain.
I sent a prescription to your pharmacy for 6 more pain pills.
When you are moving such as getting up or laying down, splint the area by pressing on it with your hand or a small pillow or rolled up towel to support the area
Apply cold compress 20 minutes off and on throughout the day today and tomorrow to minimize swelling
Use your incentive spirometer 10 breaths every hour for the next week
Return here immediately for trouble breathing, feeling short of breath, feeling weak or dizzy, or feeling sicker in any way
Interventions
Interventions:
*Risk Screen - Suicide Last Done: 09/30/24 07:15
*Neglect/Abuse Screening Last Done: 09/30/24 07:15
Discharge Date and Time
Print Language: TURKISH
[2024-09-30] MEDS: LIDOCAINE 4% PATCH 1 PATCH TOPICAL (08:22)
== END 2024-09-30 08:25 | disposition home or self-care (01) ==
LOC: EMR 07:10
PROVIDERS: EMERGENCY PHYSICIAN Emergency Medicine; FAMILY PHYSICIAN Family Medicine
DX: S22.39XA Fracture of one rib, unspecified side, initial encounter for closed fracture (principal); X58.XXXA Exposure to other specified factors, initial encounter; I48.91 Unspecified atrial fibrillation; E78.00 Pure hypercholesterolemia, unspecified; J45.909 Unspecified asthma, uncomplicated; Z79.01 Long term (current) use of anticoagulants; Z87.891 Personal history of nicotine dependence; Z90.49 Acquired absence of other specified parts of digestive tract
CPT/HCPCS: 99283; 93005

== ENCOUNTER → 2024-10-27 07:44 | Outpatient (REF) | payer OTHER, SELFPAY | LOC: WOUND 07:44 | PROVIDERS: ATTENDING PHYSICIAN Surgery; FAMILY PHYSICIAN Family Medicine | DX: I87.313 Chronic venous hypertension (idiopathic) with ulcer of bilateral lower extremity (principal); L97.211 Non-pressure chronic ulcer of right calf limited to breakdown of skin; L97.511 Non-pressure chronic ulcer of other part of right foot limited to breakdown of skin; I89.0 Lymphedema, not elsewhere classified; I87.2 Venous insufficiency (chronic) (peripheral); I73.9 Peripheral vascular disease, unspecified; I48.0 Paroxysmal atrial fibrillation | CPT/HCPCS: 99214 ==

== ENCOUNTER → 2024-11-04 08:42 | Outpatient (REF) | payer OTHER, SELFPAY | LOC: WOUND 08:42 | PROVIDERS: ATTENDING PHYSICIAN Surgery; FAMILY PHYSICIAN Family Medicine | DX: I87.313 Chronic venous hypertension (idiopathic) with ulcer of bilateral lower extremity (principal); L97.222 Non-pressure chronic ulcer of left calf with fat layer exposed; I89.0 Lymphedema, not elsewhere classified; I87.2 Venous insufficiency (chronic) (peripheral); I73.9 Peripheral vascular disease, unspecified; I48.0 Paroxysmal atrial fibrillation | CPT/HCPCS: 11042 ==

== ENCOUNTER → 2024-11-10 06:51 | Outpatient (REF) | payer OTHER, SELFPAY | LOC: RAD 06:51 | PROVIDERS: ATTENDING PHYSICIAN Family Medicine | DX: M25.562 Pain in left knee (principal) | CPT/HCPCS: 73564 ==

== ENCOUNTER → 2024-11-28 06:53 | Outpatient (REF) | payer OTHER, SELFPAY | LOC: RAD 06:53 | PROVIDERS: ATTENDING PHYSICIAN Surgery; FAMILY PHYSICIAN Family Medicine | DX: I87.313 Chronic venous hypertension (idiopathic) with ulcer of bilateral lower extremity (principal); I73.9 Peripheral vascular disease, unspecified; I87.2 Venous insufficiency (chronic) (peripheral) | CPT/HCPCS: 93922; 93970 ==

== ENCOUNTER → 2024-12-02 08:39 | Outpatient (REF) | payer OTHER, SELFPAY | LOC: WOUND 08:39 | PROVIDERS: ATTENDING PHYSICIAN Surgery; FAMILY PHYSICIAN Family Medicine | DX: I87.313 Chronic venous hypertension (idiopathic) with ulcer of bilateral lower extremity (principal); L97.222 Non-pressure chronic ulcer of left calf with fat layer exposed; I89.0 Lymphedema, not elsewhere classified; I87.2 Venous insufficiency (chronic) (peripheral); I73.9 Peripheral vascular disease, unspecified; I48.0 Paroxysmal atrial fibrillation | CPT/HCPCS: 99213 ==

== ENCOUNTER 2024-12-03 16:19 | Inpatient (IN) | payer OTHER, SELFPAY ==
[2024-12-03] VITALS (19 sets, daily range): BP systolic 92–120; BP diastolic 51–84; PULSE 79–85; O2SAT 99; BMI 30.3; BMI 29.6
--- NOTE | 2024-12-03 06:55 | ED.GENMED ---
History of Present Illness
General
Chief Complaint: Back Pain
Source: patient, spouse and ambulance crew
Exam Limitations: none
Time Seen by Provider: 12/03/24 06:54
Nursing documentation reviewed up to this point in time: agreed with
History of Present Illness
History of Present Illness:
Note:
CHIEF COMPLAINT(S)
Back pain following a fall.
HISTORY OF PRESENT ILLNESS
The patient is an 84-year-old male who presented with back pain following a recent fall. He reports being informed of a possible fracture. The patient has not yet undergone an MRI, which is scheduled for December 17 with [facility]. He
mentioned seeing Dr. Hodgson on for an orthopedic evaluation. The patient denies hitting his head during the fall, and his spouse confirmed that no head injury occurred. The back pain is localized to the central and lower back areas.
The patient is currently taking Eliquis. He has not reported any head pain. The patient experiences significant edema in his legs. He reports dehydration and admits to minimal fluid intake. The plan during the visit included obtaining an X-ray and
providing pain management, pending intravenous fluid administration due to initial hypotensive blood pressure readings.
ALLERGIES
No known allergies.
MEDICATIONS
The patient is currently on Eliquis. He recently took medication for pain as prescribed by Dr. Hodgson.
Physical Exam
General: no apparent distress, not acutely ill
Neck: supple. no meningeal signs. normal posterior pharynx
Heart: s1/s2 regular rate and rhythm, no murmur. equal radial
pulses.
HEENT: Pupils equal round reactive to light, EOMI
Lungs: no acute respiratory distress. clear bilaterally
Back: normal alignment,
Abdomen: normal bowel sounds. not tender. no CVAT
Neuro: alert and oriented. no focal neurological deficits cranial nerves II through XII intact
Skin: no rash
Psychiatric: well kept. interactive and cooperative
Extremities: no edema. no calf tenderness. negative homans. good distal pulses
PROBLEM LIST
Acute:
- Back pain with possible fracture post-fall
- Edema in lower extremities
Chronic:
- Hypotension possibly due to dehydration
PLAN
1. Obtain an X-ray of the back to assess for fracture.
2. Administer intravenous fluids for hypotension and dehydration.
3. Provide pain management after fluid resuscitation.
4. Follow-up MRI scheduled for December 17.
5. Review of current medications and adjustment as necessary.
DIFFERENTIAL DIAGNOSIS
The Differential Diagnosis includes, in no particular order and is not limited to:
1. Vertebral fracture
2. Muscular strain
3. Ligamentous injury
4. Spinal stenosis
5. Osteoporosis-related fracture
6. Disc herniation
7. Degenerative disc disease
8. Spinal tumor
9. Lumbar radiculopathy
10. Metastatic disease
Note:
CARE-UPDATE
12/03/24 - 08:15
xray reveals decreased vertebral height, indicating a possible chronic vertebral fracture or an acute compression fracture. Further evaluation is needed to differentiate between the two.
Disposition:
SUMMARY OF ENCOUNTER
An 84-year-old male presented to the emergency department with back pain following a recent fall, resulting in a compression fracture at L2 as confirmed by X-ray. The patients care situation was complicated by his spouse being unable to care for him
at home. Given his inability to manage at home and his wifes limitations, he was admitted for further management. His care plan included placement evaluations and potential therapy interventions.
DISPOSITION
Admit to the hospitalist for further management and evaluation of placement options.
ASSESSMENT
L2 compression fracture following a fall, necessitating further inpatient management.
EMERGENCY TREATMENTS ADMINISTERED
Intravenous fluids for dehydration and hypotension management.
PLAN
1. Admission for thorough evaluation and management.
2. Consider placement options due to the spouses inability to provide care at home.
3. Possible initiation of physical and occupational therapy.
INDEPENDENT REVIEW OF LABS AND INTERPRETATION OF TESTS
My independent interpretation of the X-ray indicates a compression fracture at L2.
PATIENT EDUCATION AND COUNSELING
Counseling was provided regarding the need for hospitalization and the considerations around placement due to the patient and spouses current limitations. Information about potential physical and occupational therapy for rehabilitation was also
given.
MEDICATION RECONCILIATION
1. Apixaban (Eliquis) for anticoagulation.
2. Pain medication as recently prescribed by Dr. Hodgosn (specifics were not provided).
MEDICAL DECISION MAKING
- Number and Complexity of Problems Addressed: Chronic conditions affecting care include the compression fracture at L2 and the patients current medications, such as anticoagulation. Differential Diagnosis includes vertebral fracture, muscular
strain, ligamentous injury, and other causes as noted in the differential diagnosis list.
- Data:
Category 1:
Reviewed the X-ray results confirming L2 compression fracture.
Category 3:
Discussion of management with the hospitalist regarding admission and placement evaluation considering the family care situation.
- Risk: The decision to admit for additional evaluation and management was based on the complexity of the patients fracture and the need for rehabilitation and potential placement options, given social care limitations at home.
DIAGNOSIS
Compression fracture of lumbar spine, unspecified vertebra - ICD-10 code M48.56.
Past History
Past History
ED Past Medical History: Arrthythmia (A-fib), Asthma and Hypercholesterolemia
ED Past Surgical History: Cholecystectomy and Orthopedic
Social History
Tobacco: Former smoker
Alcohol: None
Drug: None
Employment: Retired
Phy Exam
Physical Exam
Physical Exam:
.
Course
Orders/Labs/Results
Orders:
Orders
12/03/24 07:03
IV Insert/Care/Rem.- Treatment PRN
0.9% Sodium Chloride 1000 ml [Nss] 1,000 ml IV BOLUS
Lumbar Spine Complete, 4 View [CR Lumbar Spine Comp Min 4 Vw*] Urgent
Comment:
Reason For Exam: low back pain after fall
12/03/24 07:05
CT Head W/o Iv Contrast Urgent
Comment:
Reason For Exam: fall. on eliquis
12/03/24 07:59
Complete Blood Count/With Diff Urgent
Comprehensive Metabolic Panel Urgent
12/03/24 08:51
Gabapentin [Neurontin] 100 mg PO NOW STA
12/03/24 11:51
Case Management Consult ONCE
Case Management Consult: Correction Placement
Physical Therapy Consult [Pt Eval And Treat] Urgent
Activity Level: As Tolerated
12/03/24 12:28
Occupational Therapy Consult [Ot Eval And Treat] Urgent
Abnormal Lab Results
12/03/24
07:59
RBC 3.97 L 10^6/uL
(4.70-6.10)
Hgb 12.7 L g/dL
(13.0-18.0)
Hct 38.4 L %
(39.0-52.0)
MCV 96.7 H fL
(80.0-94.0)
MCH 32.0 H pg
(27.0-31.0)
Absolute Lymphs (auto) 0.8 L 10^3/uL
(1.2-3.4)
Absolute Monos (auto) 0.7 H 10^3/uL
(0.1-0.6)
Neutrophils % 75.8 H %
(42.2-75.2)
Lymphocytes % 10.3 L %
(20.5-51.1)
Potassium 5.4 H mmol/L
(3.5-5.1)
Total Bilirubin 1.7 H mg/dl
(0.2-1.3)
12/03/24 07:59
12/03/24 07:59
Vital Signs
Initial and Last Documented VS:
Initial Vital Signs
Temp Pulse Resp BP Pulse Ox
98.9 F 90 16 104/71 99
12/03/24 06:09 12/03/24 06:09 12/03/24 06:09 12/03/24 06:09 12/03/24 06:09
Last Documented Vital Signs
Temp Pulse Resp BP Pulse Ox
98.9 F 94 16 98/68 82
12/03/24 06:09 12/03/24 08:45 12/03/24 08:45 12/03/24 13:48 12/03/24 10:49
*Pulse Oximetry
SaO2: 99
Oxygen Mode of Delivery: Room air
Patient hypoxic: no
*Critical Care Note
Total Time (30-74mins, 75-104mins- exclusive of procedures): Not Applicable
ED Attending Note
-
Portions of this chart may have been created with voice recognition software.� Occasional wrong word or��sound alike� substitutions may have occurred due to the inherent limitations of voice recognition software.
Discharge Plan
Departure
Patient Disposition: Admit
Date of Disposition: 12/03/24
Time of Disposition: 14:20
Admit to: Med/Surg
Presentation/result/management discussed w/ accepting MD/DO: Hospitalist
Patient with high blood pressure during this ER visit?: No
Condition: Fair
Discharge Problem:
Closed compression fracture of lumbar vertebra
Instructions: Vertebral compression fracture
Prescriptions:
New
gabapentin 100 mg capsule
100 mg PO TID Qty: 30 0RF
No Action
lovastatin 40 mg Tablet
40 mg PO QPM
carvedilol 3.125 mg Tablet
3.125 mg PO BID
fluticasone propionate 50 mcg/actuation [place],Suspension
1 spray INTRANASAL DAILYPRN PRN (Reason: allergies)
aspirin 81 mg Tablet,Delayed Release (Dr/Ec)
81 mg PO DAILY
Eliquis 5 mg tablet
5 mg PO BID Qty: 60 0RF
vitamin E 268 mg (400 unit) Capsule
268 mg PO DAILY
Breztri Aerosphere 160-9-4.8 mcg/actuation HFA aerosol inhaler
2 inh INHALATION R BID
naproxen sodium [Aleve] 220 mg Tablet
220 mg PO DAILYPRN PRN (Reason: BACK PAINS)
albuterol sulfate 90 mcg/actuation HFA aerosol inhaler
2 puff inhalation R QIDPRN PRN (Reason: shortness of breath or wheezing)
azithromycin 250 mg tablet
250 mg PO DAILY 6 Days Qty: 3 0RF
Rx Instructions:
Last dose 03/19 evening
cefdinir 300 mg capsule
300 mg PO BID Qty: 6 0RF
Rx Instructions:
Last dose 03/19 evening
hydrocodone-acetaminophen 5-325 mg tablet
2 tab PO Q6H PRN (Reason: Pain) Qty: 15 0RF
lidocaine 4 % adhesive patch,medicated
1 patch topical Q24H PRN (Reason: Pain) Qty: 15 0RF
hydrocodone-acetaminophen 5-325 mg tablet
1 tab PO Q8H PRN (Reason: Pain) Qty: 6 0RF
Referrals:
Anup Tellez MD [Active, Anesthesiology] - Call in 1-3 days for appt
Kwesi Bravo DO [Family Provider, Family Practice]
Interventions
Interventions:
*Risk Screen - Suicide Last Done: 12/03/24 06:17
*General Assessment Last Done: 12/03/24 06:17
*Neglect/Abuse Screening Last Done: 12/03/24 06:17
*ED COVID-19 Vaccine History Last Done: 12/03/24 06:17
ED-Musculoskeletal Assessment Last Done: 12/03/24 06:32
Discharge Date and Time
Print Language: MALAY
[2024-12-03] MEDS: NSS 1000 IV ×2 (08:13→21:58)
[2024-12-03 08:17] LABS: Hematocrit 38.4 % (39.0-52.0); Hemoglobin 12.7 g/dL (13.0-18.0); Mean Corp Hgb Conc. 33.1 g/dL (33.0-37.0); Mean Corpuscular Volume 96.7 fL (80.0-94.0); Nucleated Red Blood Cells % 0 % (-); Platelet Count 198 10^3/uL (130-400); Red Cell Dist. Width 14.5 % (11.5-14.5)
[2024-12-03 08:50] LABS: ALT (SGPT) 16 U/L (0-50); AST (SGOT) 25 U/L (17-59); Albumin 3.6 g/dl (3.5-5.0); Alkaline Phosphatase 65 U/L (38-126); Blood Urea Nitrogen 20 mg/dl (9-20); Calcium 8.7 mg/dl (8.4-10.2); Carbon Dioxide 23 mmol/L (22-30); Chloride 105 mmol/L (98-107); Estimated Creatinine Clearance 58 ml/min; Glucose 98 mg/dl (70-99); Potassium 5.4 mmol/L (3.5-5.1); Sodium 135 mmol/L (135-145); Total Protein 7.0 g/dl (6.3-8.2); eGFR 59.63
[2024-12-03] MEDS: NEURONTIN 100 MG PO (09:00)
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
[2024-12-03] MEDS: LIDOCAINE 4% PATCH 1 PATCH TOPICAL (21:59)
[2024-12-03] MEDS: LIPITOR 10 MG PO (22:04)
[2024-12-03] MEDS: ELIQUIS 5 MG PO (22:04)
--- NOTE | 2024-12-03 23:00 | PTCARENOTE ---
Receive pt from ER. Pt alert oriented X3, forgetful at times, complains about back pain w/movement. Pt pulled over to bed. Pt oriented to the room, call burrows within reach, bed alarm in place. BP slightly low=93/61, HR=87, RR=18, T=97.7, SpO2=96% on
RA. Pt has no complaint of light headache, or dizziness. Lidocaine patch placed for back pain, IVFs infusing as per order. Will continue to monitor the pt.
[2024-12-04] MEDS: TYLENOL 650 MG PO ×2 (02:56→09:06)
[2024-12-04 06:26] LABS: Hematocrit 30.4 % (39.0-52.0); Hemoglobin 10.6 g/dL (13.0-18.0); Mean Corp Hgb Conc. 34.9 g/dL (33.0-37.0); Mean Corpuscular Volume 94.7 fL (80.0-94.0); Platelet Count 164 10^3/uL (130-400); Red Cell Dist. Width 14.1 % (11.5-14.5)
[2024-12-04 06:43] LABS: Ammonia < 9 umol/L (9-30)
[2024-12-04 06:56] LABS: ALT (SGPT) 13 U/L (0-50); AST (SGOT) 18 U/L (17-59); Albumin 2.7 g/dl (3.5-5.0); Alkaline Phosphatase 52 U/L (38-126); Blood Urea Nitrogen 19 mg/dl (9-20); Calcium 7.9 mg/dl (8.4-10.2); Carbon Dioxide 22 mmol/L (22-30); Chloride 106 mmol/L (98-107); Estimated Creatinine Clearance 56 ml/min; Glucose 94 mg/dl (70-99); Potassium 4.1 mmol/L (3.5-5.1); Sodium 132 mmol/L (135-145); Total Protein 5.5 g/dl (6.3-8.2); eGFR > 60.00
[2024-12-04 07:40] VITALS: BP 92/54
[2024-12-04] MEDS: SPIRIVA RESPIMAT 2.5 MCG 2 PUFF INH (07:54)
[2024-12-04] MEDS: ASPIR LOW (ENTERIC COATED) 81 MG PO (08:18)
[2024-12-04] MEDS: ELIQUIS 5 MG PO ×2 (08:18→21:03)
[2024-12-04] MEDS: PROTONIX 40 MG PO (08:19)
[2024-12-04] MEDS: LIDOCAINE 4% PATCH 1 PATCH TOPICAL (08:19)
[2024-12-04 08:31] VITALS: BMI 30.1
[2024-12-04 10:59] VITALS: BMI 30.1
--- NOTE | 2024-12-04 11:28 | W.PN.HOSP.TC ---
Addendum entered and electronically signed by Ирина Edgar MD, Resident 12/04/24 15:28:
Patient's blood pressure is running soft despite not taking tramadol overnight. Difficult to lift the patient to obtain orthostatic vitals. But suspect some autonomic dysfunction at this point. May benefit from midodrine, abdominal binders and
compression stockings.
Changed carvedilol dosing to once a day with holding parameters. Recommend obtaining orthostatic vitals when PT is in and tries to get him up and walking.
Original Note:
Today's Communication/Plan
-
Discontinue IV fluids.
Extra-strength Tylenol.
Assessment / Plan
Assessment / Plan
Assessment -84-year-old male with PMHx significant for A-fib, PVD, asthma, GERD, HLD, vertigo, presents to the hospital for evaluation of back pain, generalized fatigue, weakness, dizziness and possible dehydration. He is diagnosed with vertebral
compression fracture. PT and OT recommended skilled rehab for the patient.
Plan-
# Acute back pain-
Vertebral compression fracture-L2, traumatic.
MRI of lumbar spine-scheduled for December 17 at [place]
PT and OT evaluated in the ER, recommended skilled rehab.
Currently pain at 3-4/10, if uncontrollable pain plan to consult IR to evaluate patient for vertebroplasty/kyphoplasty.
Optimal pain control with lidocaine patch and extra strength Tylenol.
Avoid opioids given patient's recent dizziness and soft fall today is probably from tramadol.
IV fluids discontinued.
# Mild hyperkalemia -
Resolved with IV hydration.
# Mild hyponatremia-
Likely dilutional from IV fluids.
Discontinue IV fluids today.
Monitor serum sodium levels
# Mild confusion from baseline-
CT head-suspicious for normal pressure hydrocephalus
denies any urinary or bowel incontinence
She also denies any urinary retention.
Possible balance issues could be from normal pressure hydrocephalus
Will check TSH and ammonia in the a.m. tomorrow although potential for toxic metabolic encephalopathy is low
Patient is AO x 3, and conversant.
# Macrocytic anemia
Likely chronic
B12 and folate levels.
# A-fib-
Rate controlled, on Eliquis.
Continue carvedilol for rate control at home dose
[id number] score-4
Continue Eliquis.
# Asthma/COPD-
On Breztri and albuterol.
Continue home regimen.
# Peripheral venous stasis/ulcer-
Wound care consult, leg and elevation
# DVT prophylaxis-
Eliquis
# CODE STATUS-
DNR
Anticipated Discharge: 24 - 48 hours
Subjective/Interval History
-
Date of Service: December 04, 2024
No complaints today, pain improved.
Objective Data
-
Labs:
Laboratory Results
12/04/24
06:14
WBC 4.9
Hgb 10.6 L
Hct 30.4 L
Plt Count 164
Sodium 132 L
Potassium 4.1
Chloride 106
Carbon Dioxide 22
BUN 19
Creatinine 1.1
Glucose 94
Calcium 7.9 L
Total Bilirubin 1.4 H
AST 18
ALT 13
Alkaline Phosphatase 52
Vital Signs:
Vital Signs
Temp Pulse Resp BP Pulse Ox
97.8 F 76 14 92/54 94
12/04/24 07:40 12/04/24 08:19 12/04/24 07:59 12/04/24 08:19 12/04/24 08:14
I&O
12/03/24 12/04/24 12/05/24
06:59 06:59 06:59
Output Total 425 / 425
Balance -425 / -425
Review of Systems
-
History Source: Patient
All other systems: Reviewed and negative
Musculoskeletal: Reports Other (Back pain improved with lidocaine patch.)
Physical Exam
-
General: No Apparent Distress and Comfortable
HEENT: Moist Mucous Membranes, Anicteric and [place] Conjunctivae
Respiratory: Clear to Auscultation; Negative Wheezes, Rales, Rhonchi or Crackles
Cardiac: S1/S2, Irregular Rhythm and Murmur (6 systolic.)
GI: Soft, Nontender, Nondistended and Normal Bowel Sounds
Musculoskeletal: No Clubbing, No Cyanosis, Edema, Left Upper Extrem (1+ pitting edema up to the knee. Stasis dermatitis changes, wound dressing in place.), Edema, Left Lower Extrem (1+ pitting edema up to the knee. Stasis dermatitis changes, wound
dressing in place. Dorsalis pedis 2+ B/L lower extremities.) and Other
Neuro: AO x 3 and No Motor Deficits
Psych: Calm
Data Reviewed
-
Labs: Labs Reviewed by me, Discussed with Physician, Discussed with Patient and Discussed with Family
--- NOTE | 2024-12-04 12:41 | CM ---
CM received fax confirmation sheet with error message from [facility]
Clinicals refaxed to [facility] this AM to [phone]
--- NOTE | 2024-12-04 12:52 | CM ---
Reviewed the chart notes and spoke with Christo applications sales representative regarding auth for [facility] that was started yesterday. Per Christo, in medical review.
[2024-12-04] MEDS: TYLENOL 1000 MG PO (15:07)
[2024-12-04 15:40] VITALS: BP 111/70
[2024-12-04 15:45] VITALS: BP 119/71
--- NOTE | 2024-12-04 16:25 | PTCARENOTE ---
Pt AAO x3, forgetful. QUINONES slowly/stiffly; unable to assist with positioning. VSS. Unable to obtain ortho VS; pt cannot stand; cannot sit upright d/t back pain. Tylenol 1000 mg PO given for mid/low back pain with good effect. On room air- pulse ox
97%, no SOB noted. Abd soft, rounded, layne PO. Attempts tpo void in urinal/spills urine/incont large amts. BLE reddened/dry, flaking skin, dressing intact to lt lower leg; +@ edema BLE. Resting in bed at present; at bedside. Will continue
to monitor.
[2024-12-04] MEDS: COREG 3.125 MG PO (16:32)
[2024-12-04] MEDS: LIPITOR 10 MG PO (17:37)
[2024-12-04] MEDS: SYMBICORT 160/4.5 MCG INHALER 2 PUFF INH (19:44)
[2024-12-04 23:47] VITALS: BP 130/66
[2024-12-05] MEDS: TYLENOL 1000 MG PO ×2 (05:36→23:07)
[2024-12-05 06:00] VITALS: BMI 29.8
[2024-12-05 07:40] VITALS: BP 113/67; BP 114/68; PULSE 92
[2024-12-05] MEDS: SYMBICORT 160/4.5 MCG INHALER 2 PUFF INH ×2 (07:40→19:58)
[2024-12-05] MEDS: SPIRIVA RESPIMAT 2.5 MCG 2 PUFF INH (07:41)
[2024-12-05] MEDS: ELIQUIS 5 MG PO ×2 (08:53→19:42)
[2024-12-05] MEDS: PROTONIX 40 MG PO (08:53)
[2024-12-05] MEDS: LIDOCAINE 4% PATCH 1 PATCH TOPICAL (08:53)
[2024-12-05] MEDS: ASPIR LOW (ENTERIC COATED) 81 MG PO (08:54)
--- NOTE | 2024-12-05 09:28 | W.PN.HOSP.TC ---
Addendum entered and electronically signed by John Aguilar MD 12/05/24 21:02:
Attending Addendum-
I saw and evaluated the patient. I reviewed the resident�s note and agree with findings and plan as documented in the resident�s note. Sub: complains of 8/10 lower back pain rad to right leg. denies fecal incontinence or urinary retention Full 12
point ROS reviewed and negative except as documented Exam: Vitals reviewed in chart GEN-NAD heartirreg irreg lungs clear abd soft LE no edema Back TTP along L spine and paravertebrally
Plan:
# Acute back pain from age indeterminant L2 compression fx, traumatic.
-check MRI of lumbar spine now as unable to participate in PT/rehab due to severe pain (orig scheduled for December 17 at [facility])
-consult IR to evaluate patient for vertebroplasty/kyphoplasty.
-Optimize pain control with lidocaine patch and extra strength Tylenol.
# Mild hyperkalemia-Resolved
# Mild hyponatremia-stable, CTM
# Mild confusion from baseline-med induced-resolved
- no signs of NPH as CT head suggesting
- avoid narcs if able
# A-fib
-Rate controlled,
-hold eliquis for possible IR procedure
-Continue carvedilol
# Asthma/COPD-On Breztri and albuterol.
# HLD- cont atorvastatin
# Peripheral venous stasis/ulcer-Wound care
# DVT [id number] hold
# CODE STATUS-DNR
Dispo- Eventual DC to [facility] when able
ACP
Patient consented to discuss, was alone, time spent explanation of advance directives, changes in health status, patient�s health care wishes if the patient becomes unable to make health decisions, goals of care, code status, and prognosis 'just let
me go when its my time'- 16 minutes
Time spent coordinating care, review of plan of care with resident, personally reviewed previous records in EMR, med rec, labs, radiology, d/w nursing, total time documented is exclusive of any additional time listed that was spent in advance care
planning discussion -�51 minutes
Original Note:
Today's Communication/Plan
-
PT/OT
Lumbar MRI w/o contrast
IR consult for vertebroplasty consult
Assessment / Plan
Assessment / Plan
Assessment -84-year-old male with PMHx significant for A-fib, PVD, asthma, GERD, HLD, vertigo, presents to the hospital for evaluation of back pain, generalized fatigue, weakness, dizziness and possible dehydration. He is diagnosed with L2
vertebral compression fracture. PT and OT recommended skilled rehab for the patient.
Plan-
# Acute back pain-
2/2 to vertebral compression fracture-L2, traumatic. MRI of lumbar spine-scheduled for December 17 at [facility], however given patient's pain and limited mobility, will attempt to get MRI here and IR consult for eval for vertebroplasty/kyphoplasty.
- IR consulted for vertebroplasty/kyphoplasty consult
--f/u lumbar MRI w/o contrast
- PT and OT evaluated in the ER, recommended skilled rehab.
- Pain control with lidocaine patch and extra strength Tylenol.
- s/p tramadol; pt dizzy and confused with this, do not use again per pt and .
- s/p mIVF
#Mild confusion from baseline-
CT head-suspicious for normal pressure hydrocephalus. Patient and denies any urinary or bowel incontinence or retention. Possible balance issues could be from normal pressure hydrocephalus, but more likely 2/2 fracture. Per , 12/05, pt is
80-85% at his baseline cognitive function now. She reports he has severe sleep debt from pain/hospitalization. Patient is AO x 3, and conversant.
- TSH 3.06 and ammonia <9
#Macrocytic anemia
Likely chronic
- follow-up B12 and folate levels.
#A-fib-
Rate controlled, on Eliquis. [id number] score-4.
- Continue carvedilol for rate control at home dose
- Continue Eliquis.
#Asthma/COPD-
- Continue home Breztri and albuterol.
#Peripheral venous stasis/ulcer-
- Wound care consult, leg and elevation
DVT prophylaxis-Eliquis
CODE STATUS-DNR
Dispo-to [facility]
Anticipated Discharge: Within 24 hours
Subjective/Interval History
-
Date of Service: December 05, 2024
- NAEON
- This morning, he denies pain, dizziness, or weakness. Reports he would like to work with PT to get OOB to bathroom. Ambulation limited by pain.
- Per , he is 80-85% 'himself.' She reports his confusion stems from lack of sleep due to the pain and hospitalization. Her main concern is the pain.
Objective Data
-
Labs:
Laboratory Results
12/05/24
09:06
WBC Pending
Hgb Pending
Hct Pending
Plt Count Pending
Sodium Pending
Potassium Pending
Chloride Pending
Carbon Dioxide Pending
BUN Pending
Creatinine Pending
Glucose Pending
Calcium Pending
Vital Signs:
Vital Signs
Temp Pulse Resp BP Pulse Ox
98.2 F 900 18 114/68 95
12/05/24 07:40 12/05/24 07:45 12/05/24 07:45 12/05/24 07:40 12/05/24 07:45
I&O
12/04/24 12/05/24 12/06/24
06:59 06:59 06:59
Intake Total 640 / 640 840 / 840
Output Total 425 / 425 950 / 950
Balance 215 / 215 -110 / -110
Review of Systems
-
History Source: Patient
All other systems: Reviewed and negative
Constitutional: Reports Fatigue, Sleep Disturbance and Weakness
Musculoskeletal: Reports Joint Pain (2/2 L2 fracture)
Physical Exam
-
General: Well Developed, Well Nourished, No Apparent Distress, Comfortable and Other (laying in bed, conversant)
HEENT: Normocephalic, Atraumatic, Moist Mucous Membranes and PERRLA
Respiratory: Clear to Auscultation
Cardiac: Regular Rhythm and S1/S2
GI: Soft, Nontender and Nondistended
Skin: Warm and Dry
Neuro: AO x 3
Psych: Calm
[2024-12-05 09:58] LABS: Hematocrit 34.7 % (39.0-52.0); Hemoglobin 11.8 g/dL (13.0-18.0); Mean Corp Hgb Conc. 34.0 g/dL (33.0-37.0); Mean Corpuscular Volume 95.1 fL (80.0-94.0); Platelet Count 198 10^3/uL (130-400); Red Cell Dist. Width 14.3 % (11.5-14.5)
[2024-12-05 10:24] VITALS: BP 105/73; BP 108/69; BP 131/78; PULSE 105; PULSE 88; PULSE 96
[2024-12-05 10:26] LABS: Blood Urea Nitrogen 17 mg/dl (9-20); Calcium 7.8 mg/dl (8.4-10.2); Carbon Dioxide 24 mmol/L (22-30); Chloride 105 mmol/L (98-107); Estimated Creatinine Clearance 69 ml/min; Glucose 109 mg/dl (70-99); Potassium 4.2 mmol/L (3.5-5.1); Sodium 132 mmol/L (135-145); eGFR > 60.00
--- NOTE | 2024-12-05 10:35 | WOUNDNOTE ---
L LATERAL LOWER LEG
--- NOTE | 2024-12-05 10:36 | WOUNDNOTE ---
WON RN note: Patient admitted with closed compression fracture of lumbar vertebra.
See H&P for complete history. lives with .
PMH: Past Medical History: Reports Other (PAD, A-fib, asthma, GERD, HLD, vertigo, macular degeneration) venous leg ulcers, falls.
Past Surgical History: Reports Other (Inguinal hernia repair, cataract extraction, cholecystectomy, right shoulder replacement, cardioversion.)
Wound Location and type/assessment: Patient admitted with: Healing L lateral leg venous ulcers. Scattered cluster of partial thickness openings, pink base. Legs with 2+ edema, + pedal pulses, warm and dry. Heels are blanchable red. Patient said he
uses brandin wraps at home. Patient has been going to wound care center routinely. Patient turned with assist of PCT Julianna. Patient accidentally spilled urine while using urinal, skin care given by Julianna. Sacrum and buttocks are non blanchable red. L
buttock with small stage 2 PI, patient admits to sitting most of day. Confirmed he sits in a recliner chair and does not use a cushion.
Appetite: Good.
Pressure redistribution devices in place: Accumax, air chair cushion brought to bedside, PT to work with patient. Able to turn self to sides while in bed. Pillow under calves. Adhesive foams applied to heels to protect.
Plan: Sacral silicone foam dressing changed. L lateral lower leg applied adaptic and dry dressing. Brandin wraps knee high to both legs applied. Will confirm orders with hospitalist and updated nurse.
Updated care plan and will follow as needed.
Note to case management of equipment requested for discharge: VN if can't do.
Recommend follow up at wound care center upon discharge.
[2024-12-05] MEDS: MILK OF MAGNESIA 30 ML PO (11:03)
--- NOTE | 2024-12-05 12:29 | CM ---
Reviewed chart. Met with pt at bedside and spoke with on the phone. Received authorization via fax. Pt not ready for DC today per Dr Thomas. Pt informed of potential discharge tomorrow. He will call his .
Plan: DC to [facility] when stable, possibly tomorrow.
Christo Mosher for [facility]
Authorization # [id number]
Customer ID: [id number]
5 Days from initial date of admission to SNF
Phone:
Fax:
[2024-12-05 15:35] VITALS: BP 142/81
[2024-12-05 16:05] LABS: Urine Character Clear (Clear)
[2024-12-05] MEDS: LIPITOR 10 MG PO (16:57)
[2024-12-05] MEDS: MIRALAX 17 GRAMS PO (16:57)
[2024-12-05] MEDS: COLACE 100 MG PO (16:57)
[2024-12-05 23:55] VITALS: BP 98/73
[2024-12-06 06:00] VITALS: BMI 29.2
[2024-12-06 07:30] VITALS: BP 109/65
[2024-12-06] MEDS: LIDOCAINE 4% PATCH 1 PATCH TOPICAL (08:02)
[2024-12-06] MEDS: ASPIR LOW (ENTERIC COATED) 81 MG PO (08:02)
[2024-12-06] MEDS: COLACE 100 MG PO ×2 (08:02→17:15)
[2024-12-06] MEDS: COREG 3.125 MG PO (08:02)
[2024-12-06] MEDS: PROTONIX 40 MG PO (08:02)
--- NOTE | 2024-12-06 08:10 | W.PN.GENERIC ---
Assessment / Plan
-
This is an 84 yo male with a symptomatic L2 compression fracture after a fall about 1 week ago. The symptoms are interfering with his activities of daily living. We discussed treatment options including conservative management with brace and pain
medication, ERIC injection and vertebral augmentation. He has no comorbidities that would interfere with planned treatment. I believe he should be a good candidate for vertebral augmentation.
I discussed the technique of vertebral body augmentation including the logistics, risks and benefits, success and failure rates as well as alternatives. Risks include but are not limited to: incomplete treatment, need for surgery, infection, abscess
formation, spinal cord injury and paralysis.� We discussed the probability of outcomes and the length of convalescence post procedure.�
We will tentatively plan to perform the procedure on December 08
The procedure will be performed with anesthesia support.
He will need to hold his Eliquis and Aspirin starting today
He will need a PT/INR prior to the procedure
He will need to be NPO after midnight Thursday into
Thank you for allowing me to participate in this patient's care.� I spent over one hour in counseling and coordination of care with the patient, reviewing previous medical records, laboratory studies and all relevant imaging, including history
taking, physical exam and documentation as well as discussing the procedure and expected outcome with the patient.
Physician Progress Note
Subjective
Interventional Radiology Consult
Diagnosis: L2 Compression Fracture
This is an 84-year-old male with PMHx significant for A-fib, on Eliquis, asthma, GERD, HLD, vertigo, macular degeneration who presented to the emergency room with generalized fatigue and fall. He initially had a fall while walking downstairs from
his bedroom on the last 3 steps and landed on his buttocks and his lower back hit the stairs. Then his lower back started hurting, sharp shooting constant pain that is about 3-4/10 in intensity, nonradiating limited only to the center of his back.
He was wasa taking Tylenol and using lidocaine patches along with tramadol which were prescribed by his orthopedist. He had an xray revealing an L2 compression. He had an MRI yesterday confriming acute L 2 compression fracture. IR was consulted
for vertebral augmentaion
Past Medical/Surgical History
PAD, A-fib, asthma, GERD, HLD, vertigo, macular degeneration, Inguinal hernia repair, cataract extraction, cholecystectomy, right shoulder replacement, cardioversion
Social History
Tobacco: Non-smoker
Alcohol: Occasional
Personal:
Allergies
Allergy/AdvReac Type Severity Reaction Status Date / Time
bee venom protein (honey bee) Allergy Severe Anaphylaxis Verified 09/28/24 11:35
seasonal Allergy sneezing, Uncoded 09/28/24 11:35
sinus,
asthma
Home Medications
The patient's current medications were documented and reviewed at the time of this consult including medication name, dosage, frequency and route of administration
carvedilol 3.125 mg tablet 3.125 mg PO BID Blood Pressure 01/09/22
fluticasone propionate 50 mcg/actuation nasal spray,suspension 1 spray intranasal DAILYPRN PRN allergies 01/09/22
lovastatin 40 mg tablet 40 mg PO QPM High Cholesterol 01/09/22
aspirin 81 mg tablet,delayed release 81 mg PO DAILY Blood Clot Prevention/Tx 07/20/23
apixaban 5 mg tablet (Eliquis) 5 mg PO BID #60 tabs 02/11/24
budesonide 160 mcg-glycopyr 9 mcg-formot 4.8 mcg/actuation HFA inhaler (Breztri Aerosphere) 2 inh inhalation R BID Lung/Breathing Issues 03/11/24
vitamin E 268 mg (400 unit) capsule 268 mg PO DAILY Supplement 03/11/24
albuterol sulfate 90 mcg/actuation aerosol inhaler 2 puff inhalation R QIDPRN PRN shortness of breath or wheezing 03/15/24
naproxen sodium 220 mg tablet (Aleve) 220 mg PO DAILYPRN PRN BACK PAINS 03/15/24
azithromycin 250 mg tablet 250 mg PO DAILY 6 days #3 tabs 03/16/24
cefdinir 300 mg capsule 300 mg PO BID #6 caps 03/16/24
hydrocodone 5 mg-acetaminophen 325 mg tablet 2 tab PO Q6H PRN Pain #15 tabs 09/28/24
hydrocodone 5 mg-acetaminophen 325 mg tablet 1 tab PO Q8H PRN Pain #6 tabs 09/30/24
lidocaine 4 % topical patch 1 patch topical Q24H PRN Pain #15 ea 09/30/24
gabapentin 100 mg capsule 100 mg PO TID #30 caps 12/03/24
Objective
Vital Signs
Temp Pulse Resp BP Pulse Ox
97.2 F 70 16 109/65 99
12/06/24 07:30 12/06/24 08:02 12/06/24 07:30 12/06/24 08:02 12/06/24 07:30
Lab Results
12/05/24 09:06
This is an 84 yo male in [facility]. Color is good. Skin is warm and dry. Neck is supple. Heart is regular. Lungs are CTA. Abdomen is soft and nontender with bowel sounds. No CVAT. There is tenderness over the lumbar spine. No SLR. Sensation
maintained. Strength is 5/5. Chronic venous stasis skin changes to lower 1/3 of each leg. Wound with dressing in place over the left lower leg. Palpable pedal pulses
MRI Lumbar Spine 12/05/24:
Acute superior endplate fracture of L2 with moderate loss of vertebral body height and mild retropulsion of the posterior cortex into the anterior epidural space. Mild central canal stenosis at L1/L2. I personally reviewed and interpreted these
images
[2024-12-06] MEDS: TYLENOL 1000 MG PO (08:13)
[2024-12-06] MEDS: SPIRIVA RESPIMAT 2.5 MCG 2 PUFF INH (08:27)
[2024-12-06] MEDS: SYMBICORT 160/4.5 MCG INHALER 2 PUFF INH ×2 (08:27→19:29)
[2024-12-06 09:13] LABS: Hematocrit 36.3 % (39.0-52.0); Hemoglobin 12.3 g/dL (13.0-18.0); Mean Corp Hgb Conc. 33.9 g/dL (33.0-37.0); Mean Corpuscular Volume 94.3 fL (80.0-94.0); Platelet Count 218 10^3/uL (130-400); Red Cell Dist. Width 14.4 % (11.5-14.5)
--- NOTE | 2024-12-06 09:24 | PN.CDI ---
CDI
- -
CDI:
Physician Documentation Request
Admit Date: 12/03/24 16:19
Dear Doctor Khang,
Patient admitted with L2 compression fracture.
12/05 Nursing skin assessment by OANH, 'Stage 1 sacral pressure injury, POA....Stage 2 left buttock pressure injury, POA.'
Physician documentation of the type and location of wounds is required for compliant documentation. Based on the above clinical findings and your assessment, please provide the following in your progress note:
Type (etiology) of ulcer/wound:
- Pressure (decubitus) ulcer
- Other
- Unable to determine
For a pressure ulcer, please also include the stage* of the ulcer:
- Stage 1 - Skin intact, non-blanchable redness
- Stage 2 - Partial thickness loss of dermis, includes intact or open blister
- Stage 3 - Full thickness tissue not including bone, tendon or muscle
- Stage 4 - Full thickness tissue loss, including exposed bone, tendon or muscle
- Unstageable - Full thickness loss in which the base of the ulcer is covered by slough (yellow, soto, paredes, green or brown) and/or eschar (soto, brown or black) in the wound bed.
- Unable to determine
Use of terms such as suspected, likely, concern for, or probable (associated with a specific diagnosis that is being evaluated, monitored, or treated as if it exists) are acceptable and can be coded in the inpatient setting, when documented at the
time of discharge.
Thank you,
Letitia SHERWOOD,RN,CCDS
CDI Specialist
Available via [place] text
Please use your independent medical judgment in providing your response.
*Source: National Pressure Ulcer Advisory Panel (NPUAP)
--- NOTE | 2024-12-06 10:00 | PN.CDI ---
CDI
- -
CDI:
Physician Documentation Request
Admit Date: 12/03/24 16:19
Dear Doctor Khang,
Patient admitted with L2 compression fracture.
Patient received IV NSS.
Na levels documented below:
Laboratory Tests
12/03/24 12/04/24 12/05/24
07:59 06:14 09:06
Sodium 135 132 L 132 L
Based on the above, could you clarify in the progress notes, the appropriate diagnosis, if significant, that supports the above abnormalities and additional evaluation, monitoring and/or treatment rendered:
Hyponatremia
Insignificant abnormal lab findings
Other
Use of terms such as suspected, likely, concern for, or probable (associated with a specific diagnosis that is being evaluated, monitored, or treated as if it exists) are acceptable and can be coded in the inpatient setting, when documented at the
time of discharge.
Thank you,
Letitia SHERWOOD,RN,CCDS
CDI Specialist
Available via [place] text
Please use your independent medical judgment in providing your response.
--- NOTE | 2024-12-06 10:13 | PN.CDI ---
CDI
- -
CDI:
Physician Documentation Request
Admit Date: 12/03/24 16:19
Dear Doctor Martha,
Patient admitted with L2 compression fracture.
12/05 Nursing skin assessment by OANH, 'Stage 1 sacral pressure injury, POA....Stage 2 left buttock pressure injury, POA.'
Physician documentation of the type and location of wounds is required for compliant documentation. Based on the above clinical findings and your assessment, please provide the following in your progress note:
Type (etiology) of ulcer/wound:
- Pressure (decubitus) ulcer
- Other
- Unable to determine
For a pressure ulcer, please also include the stage* of the ulcer:
- Stage 1 - Skin intact, non-blanchable redness
- Stage 2 - Partial thickness loss of dermis, includes intact or open blister
- Stage 3 - Full thickness tissue not including bone, tendon or muscle
- Stage 4 - Full thickness tissue loss, including exposed bone, tendon or muscle
- Unstageable - Full thickness loss in which the base of the ulcer is covered by slough (yellow, soto, paredes, green or brown) and/or eschar (soto, brown or black) in the wound bed.
- Unable to determine
Use of terms such as suspected, likely, concern for, or probable (associated with a specific diagnosis that is being evaluated, monitored, or treated as if it exists) are acceptable and can be coded in the inpatient setting, when documented at the
time of discharge.
Thank you,
Letitia SHERWOOD,RN,CCDS
CDI Specialist
Available via [place] text
Please use your independent medical judgment in providing your response.
*Source: National Pressure Ulcer Advisory Panel (NPUAP)
--- NOTE | 2024-12-06 10:18 | PN.CDI ---
CDI
- -
CDI:
Physician Documentation Request
Admit Date: 12/03/24 16:19
Dear Doctor Martha,
Patient admitted with L2 compression fracture.
Patient received IV NSS.
Na levels documented below:
Laboratory Tests
12/03/24 12/04/24 12/05/24
07:59 06:14 09:06
Sodium 135 132 L 132 L
Based on the above, could you clarify in the progress notes, the appropriate diagnosis, if significant, that supports the above abnormalities and additional evaluation, monitoring and/or treatment rendered:
Hyponatremia
Insignificant abnormal lab findings
Other
Use of terms such as suspected, likely, concern for, or probable (associated with a specific diagnosis that is being evaluated, monitored, or treated as if it exists) are acceptable and can be coded in the inpatient setting, when documented at the
time of discharge.
Thank you,
Letitia SHERWOOD,RN,CCDS
CDI Specialist
Available via [place] text
Please use your independent medical judgment in providing your response.
--- NOTE | 2024-12-06 10:21 | PN.CDI ---
CDI
- -
CDI:
Physician Documentation Request
Admit Date: 12/03/24 16:19
Dear Doctor Martha,
Patient admitted with L2 compression fracture.
12/05 PN, 'Acute back pain from age indeterminant L2 compression fx, traumatic.'
12/05 Lumbar spine MRI, 'Impression: Diffuse bone demineralization.'
Please provide in your note the likely etiology/ etiologies of the documented L2 compression fracture:
Multifactorial due to trauma and age-related osteoporosis
Trauma only
Other
Use of terms such as suspected, likely, concern for, or probable (associated with a specific diagnosis that is being evaluated, monitored, or treated as if it exists) are acceptable and can be coded in the inpatient setting, when documented at the
time of discharge.
Thank you,
Letitia ARMENTAN,RN,CCDS
CDI Specialist
Available via [place]
Please use your independent medical judgment in providing your response.
--- NOTE | 2024-12-06 10:24 | W.PN.HOSP.TC ---
Addendum entered and electronically signed by John Aguilar MD 12/06/24 18:14:
Attending Addendum-
I saw and evaluated the patient. I reviewed the resident�s note and agree with findings and plan as documented in the resident�s note. Sub: lower back pain rad to right leg better controlled today on meds. denies fecal incontinence or urinary
retention complains if urinary frequency. Full 12 point ROS reviewed and negative except as documented Exam: Vitals reviewed in chart GEN-NAD heart irreg irreg lungs clear abd soft LE no edema Back TTP along L spine and paravertebrally
Plan:
# Acute back pain from acute L2 compression fx, traumatic and age related osteoporosis.
-MRI of lumbar spine 12/05-ACUTE SUPERIOR ENDPLATE FRACTURE of L2 with moderate loss of vertebral body height and mild retropulsion of the posterior cortex into the anterior epidural space.
-IR to perform kyphoplasty on 12/08
-Optimize pain control with lidocaine patch and extra strength Tylenol.
-NPOpMN on 12/07, hold asa eliquis
# Mild hyperkalemia-Resolved
# Mild hyponatremia-stable, CTM repeat BMP in am
# Mild confusion from baseline-med induced-resolved
- no signs of NPH as CT head suggesting
- avoid narcs if able
#stage 1 sacral PI, POA
#stage 2 left buttock PI, POA
- wound care
# A-fib
-Rate controlled,
-hold eliquis for IR procedure
-Continue carvedilol
# Asthma/COPD-On Breztri and albuterol.
# HLD- cont atorvastatin
# Peripheral venous stasis/ulcer-Wound care
# DVT hahmteztwla-Pmlpoiz-mt hold
# CODE STATUS-DNR
Dispo- Eventual DC to [facility] post kyphoplasty
Time spent coordinating care, review of plan of care with resident, personally reviewed records in EMR, med rec, consults, notes, labs, radiology, d/w nursing � 51 mins
Original Note:
Today's Communication/Plan
-
Lumbar Spinal MRI completed
-- IR to do vert oct on 12/08
-- Eliquis and Aspirin held
-- PT/INR tmrw
-- NPO at midnight tmrw
-- Incidental AAA (4.2cm) finding -- will need OP f/u
DVT ppx SCDs iso holding Eliquis
Assessment / Plan
Assessment / Plan
Assessment -84-year-old male with PMHx significant for A-fib, PVD, asthma, GERD, HLD, vertigo, presents to the hospital for evaluation of back pain, generalized fatigue, weakness, dizziness and possible dehydration. He is diagnosed with L2
vertebral compression fracture. PT and OT recommended skilled rehab for the patient.
MRI Lumbar Spine 12/05:
1. ACUTE SUPERIOR ENDPLATE FRACTURE of L2 with moderate loss of vertebral body height and mild retropulsion of the posterior cortex into the anterior epidural space. Mild central canal stenosis at L1/L2.
2. Severe bilateral lateral recess stenosis, moderate central canal stenosis, and moderate to severe right neural foraminal narrowing at L4/L5.
3. Moderate central canal stenosis at L2/L3 and L3/L4.
4. Diffuse bone demineralization.
5. Fusiform infrarenal abdominal aortic aneurysm (4.2 cm AP dimension).
Plan-
#Acute back pain-04/10 to vertebral compression fracture-L2, traumatic.
MRI of lumbar spine as above. IR consulted for eval for vertebroplasty/kyphoplasty. Plan for kyphoplasty on 12/08.
- IR consulted:
--IR for vertebral body augmentation on 12/08
--Hold Eliquis & Aspirin
--PT/INR
--NPO after midnight 12/07 into 12/08 morning
- PT and OT evaluated in the ER, recommended skilled rehab
- Pain control with lidocaine patch and extra strength Tylenol.
- s/p tramadol; pt dizzy and confused with this, do not use again per pt and .
- s/p mIVF
#Mild confusion from baseline-
CT head-suspicious for normal pressure hydrocephalus. Patient and denies any urinary or bowel incontinence or retention. Possible balance issues could be from normal pressure hydrocephalus, but more likely 2/2 fracture. Per , 12/05, pt is
80-85% at his baseline cognitive function now. She reports he has severe sleep debt from pain/hospitalization. Patient is AO x 3, and conversant.
- TSH 3.06 and ammonia <9
#Incidental fusiform infrarenal abdominal aortic aneurysm (4.2 cm AP dimension)
- Vascular surgery follow-up OP
- Rec yearly monitoring
#Macrocytic anemia
Likely chronic
- follow-up B12 and folate levels.
#Hyponatremia, stable
132 stable
-CTM
#A-fib-
Rate controlled, on Eliquis. [id number] score-4.
- Continue carvedilol for rate control at home dose
- Hold Eliquis for IR
#Asthma/COPD-
- Continue home Breztri and albuterol.
#Peripheral venous stasis/ulcer-
- Wound care consult, leg and elevation
DVT prophylaxis-Hold Eliquis, SCDs
CODE STATUS-DNR
Dispo-to [facility]
Anticipated Discharge: > 48 hours (s/p IR vertebral augmentation)
Subjective/Interval History
-
Date of Service: December 06, 2024
- This morning, reports back pain 08/16. States he pushed himself too hard last night to be able to ambulate to the bathroom. He's ecstatic to hear about IR's plan for vertebral body augmentation this . Eliquis and Aspirin held per IR.
- States he's having urinary frequency x weeks. No BM in 5 days - his baseline; continuing bowel regimen.
Objective Data
-
Labs:
Laboratory Results
12/06/24
08:45
WBC 5.1
Hgb 12.3 L
Hct 36.3 L
Plt Count 218
Vital Signs:
Vital Signs
Temp Pulse Resp BP Pulse Ox
97.2 F 70 16 109/65 99
12/06/24 07:30 12/06/24 08:02 12/06/24 07:30 12/06/24 08:02 12/06/24 07:30
I&O
12/05/24 12/06/24 12/07/24
06:59 06:59 06:59
Intake Total 840 / 840 600 / 600
Output Total 950 / 950 1030 / 1030
Balance -110 / -110 -430 / -430
Review of Systems
-
History Source: Patient
All other systems: Reviewed and negative
Constitutional: Reports Sleep Disturbance
Genitourinary: Reports Frequency
Musculoskeletal: Reports Muscle Pain, Muscle Stiffness and Muscle Weakness
Physical Exam
-
General: Well Developed, Well Nourished, No Apparent Distress, Comfortable, Conversant and Other (laying flat in bed conversing)
HEENT: Normocephalic, Atraumatic and Moist Mucous Membranes
Respiratory: Clear to Auscultation
Cardiac: Regular Rhythm and S1/S2
GI: Soft, Nontender and Nondistended
Musculoskeletal: No Clubbing
Skin: Warm and Dry
Neuro: AO x 3
Psych: Calm
[2024-12-06 11:00] VITALS: BP 98/77
[2024-12-06 11:25] VITALS: BP 121/63
--- NOTE | 2024-12-06 15:08 | CM ---
Reviewed chart. Met with pt chairside. Kyphoplasty scheduled for . Informed pt that CM will need to obtain a new insurance authorization for SNF needs post-op. Pt stated he understood.
Plan: D/C to SNF. [facility] if possible.
[2024-12-06 15:10] VITALS: BP 126/72
[2024-12-06] MEDS: LIPITOR 10 MG PO (17:15)
[2024-12-06] MEDS: MIRALAX 17 GRAMS PO (17:15)
[2024-12-06 23:59] VITALS: BP 134/83; BP 135/85; BP 137/84; PULSE 79; PULSE 87; PULSE 89
[2024-12-07 06:00] VITALS: BMI 28.8
[2024-12-07 07:25] VITALS: BP 116/67
[2024-12-07] MEDS: LIDOCAINE 4% PATCH 1 PATCH TOPICAL (08:06)
[2024-12-07 08:17] LABS: Hematocrit 38.6 % (39.0-52.0); Hemoglobin 12.6 g/dL (13.0-18.0); Mean Corp Hgb Conc. 32.6 g/dL (33.0-37.0); Mean Corpuscular Volume 95.5 fL (80.0-94.0); Nucleated Red Blood Cells % 0 % (-); Platelet Count 233 10^3/uL (130-400); Red Cell Dist. Width 14.4 % (11.5-14.5)
[2024-12-07] MEDS: COREG 3.125 MG PO (08:20)
[2024-12-07] MEDS: PROTONIX 40 MG PO (08:20)
[2024-12-07 08:21] LABS: INR 1.20; PT 15.7 Sec (11.4-14.6)
[2024-12-07] MEDS: SPIRIVA RESPIMAT 2.5 MCG 2 PUFF INH (08:21)
[2024-12-07] MEDS: SYMBICORT 160/4.5 MCG INHALER 2 PUFF INH ×2 (08:22→19:24)
[2024-12-07 09:00] LABS: Blood Urea Nitrogen 16 mg/dl (9-20); Calcium 8.4 mg/dl (8.4-10.2); Carbon Dioxide 26 mmol/L (22-30); Chloride 106 mmol/L (98-107); Estimated Creatinine Clearance 69 ml/min; Glucose 94 mg/dl (70-99); Potassium 4.5 mmol/L (3.5-5.1); Sodium 135 mmol/L (135-145); eGFR > 60.00
--- NOTE | 2024-12-07 09:03 | W.PN.HOSP.TC ---
Addendum entered and electronically signed by John Aguilar MD 12/07/24 22:19:
Attending Addendum-
I saw and evaluated the patient. I reviewed the resident�s note and agree with findings and plan as documented in the resident�s note. Sub: continues to have lower back pain rad to right leg. denies fecal incontinence or urinary retention. has not
had a BM in a week per patient. No N/V abd pain. Full 12 point ROS reviewed and negative except as documented Exam: Vitals reviewed in chart GEN-NAD heart irreg irreg lungs clear abd soft LE no edema Back TTP along L spine and paravertebrally
Plan:
# Acute back pain from acute L2 compression fx, traumatic and age related osteoporosis.
-MRI of lumbar spine 12/05-ACUTE SUPERIOR ENDPLATE FRACTURE of L2 with moderate loss of vertebral body height and mild retropulsion of the posterior cortex into the anterior epidural space.
-IR to perform kyphoplasty on 12/08
-Optimize pain control
-NPOpMN tonight, hold asa eliquis
# Mild hyperkalemia-Resolved
# Mild hyponatremia-resolved
# constipation- enema x 1
# Mild confusion from baseline-med induced-resolved
- no signs of NPH as CT head suggesting
- avoid narcs if able
#stage 1 sacral PI, POA
#stage 2 left buttock PI, POA
- wound care
# A-fib
-Rate controlled,
-hold eliquis for IR procedure
-Continue carvedilol
# Asthma/COPD-On Breztri and albuterol-monitor closely post procedure
# HLD- cont atorvastatin
# DVT indbgiybubd-Xqrewqo-pn hold- restart post procedure
# CODE STATUS-DNR
Dispo- DC to [facility] post kyphoplasty
Time spent coordinating care, review of plan of care with resident, personally reviewed records in EMR, med rec, consults, notes, labs, radiology, d/w nursing � 52 mins
Original Note:
Today's Communication/Plan
-
NPO after midnight tonight
IR kyphoplasty tomorrow
Enema today
Assessment / Plan
Assessment / Plan
Assessment -84-year-old male with PMHx significant for A-fib, PVD, asthma, GERD, HLD, vertigo, presents to the hospital for evaluation of back pain, generalized fatigue, weakness, dizziness and possible dehydration. He is diagnosed with L2
vertebral compression fracture. PT and OT recommended skilled rehab for the patient.
MRI Lumbar Spine 12/05:
1. ACUTE SUPERIOR ENDPLATE FRACTURE of L2 with moderate loss of vertebral body height and mild retropulsion of the posterior cortex into the anterior epidural space. Mild central canal stenosis at L1/L2.
2. Severe bilateral lateral recess stenosis, moderate central canal stenosis, and moderate to severe right neural foraminal narrowing at L4/L5.
3. Moderate central canal stenosis at L2/L3 and L3/L4.
4. Diffuse bone demineralization.
5. Fusiform infrarenal abdominal aortic aneurysm (4.2 cm AP dimension).
Plan-
#Acute back pain-04/10 to vertebral compression fracture-L2, traumatic.
MRI of lumbar spine as above. IR consulted for eval for vertebroplasty/kyphoplasty. Plan for kyphoplasty on 12/08.
- IR consulted:
--IR for vertebral body augmentation on 12/08
--Hold Eliquis & Aspirin
--PT 15.7, INR 1.2
--NPO after midnight tonight 12/07 into 12/08 morning
- PT and OT evaluated in the ER, recommended skilled rehab
- Pain control with lidocaine patch and extra strength Tylenol.
- s/p tramadol; pt dizzy and confused with this, do not use again per pt and .
- s/p mIVF
#Constipation
Pt reports baseline constipation with 1BM per week. He has not had a BM in 5-6 days as of 12/07, despite getting Miralax, Senna, and Milk of Mag x1.
- Miralax and Senna daily
- Milk of Mag x 2
- Enema 12/07 if he is unable to go per above bowel regimen
#Mild confusion from baseline, resolved
CT head-suspicious for normal pressure hydrocephalus. Patient and denies any urinary or bowel incontinence or retention. Possible balance issues could be from normal pressure hydrocephalus, but more likely 2/2 fracture. Per , 12/05, pt is
80-85% at his baseline cognitive function now. She reports he has severe sleep debt from pain/hospitalization. Patient is AO x 3, and conversant.
- TSH 3.06 and ammonia <9
#Incidental fusiform infrarenal abdominal aortic aneurysm (4.2 cm AP dimension)
- Vascular surgery follow-up OP
- Rec yearly monitoring
#Macrocytic anemia
Likely chronic
- follow-up B12 and folate levels.
#Hyponatremia, stable
132 stable
-CTM
#A-fib-
Rate controlled, on Eliquis. [id number] score-4.
- Continue carvedilol for rate control at home dose
- Hold Eliquis for IR
#Asthma/COPD-
- Continue home Breztri and albuterol.
#Peripheral venous stasis/ulcer-
- Wound care consult, leg and elevation
DVT prophylaxis-Hold Eliquis, SCDs
CODE STATUS-DNR
Dispo-to [facility]
Anticipated Discharge: 24 - 48 hours
Subjective/Interval History
-
Date of Service: December 07, 2024
- This morning, he is ambulating with help from nurse and getting his lidocaine patch replaced. He has not had a BM in 7 days (BL is 1/wk) despite Miralax and Senna daily. Added milk of mag x1. Enema if still no BM.
- He reports similar pain as prior days, but is keen for kyphoplasty tomorrow. Also continues to report urinary frequency with clear UA/cltx.
Objective Data
-
Labs:
Laboratory Results
12/07/24
07:54
WBC 5.3
Hgb 12.6 L
Hct 38.6 L
Plt Count 233
PT 15.7 H
INR 1.20
Sodium 135
Potassium 4.5
Chloride 106
Carbon Dioxide 26
BUN 16
Creatinine 0.9
Glucose 94
Calcium 8.4
Vital Signs:
Vital Signs
Temp Pulse Resp BP Pulse Ox
98.2 F 75 16 116/67 99
12/07/24 07:25 12/07/24 07:25 12/07/24 07:25 12/07/24 08:20 12/07/24 07:25
I&O
12/06/24 12/07/24 12/08/24
06:59 06:59 06:59
Intake Total 600 / 600 840 / 840
Output Total 1030 / 1030 250 / 250
Balance -430 / -430 590 / 590
Physical Exam
-
General: Well Developed, Well Nourished, No Apparent Distress, Comfortable and Other (Standing and walking to commode with nurse's help today)
HEENT: Normocephalic, Atraumatic and Moist Mucous Membranes
Respiratory: Clear to Auscultation
Cardiac: Regular Rhythm and S1/S2
GI: Soft, Nontender and Nondistended
Musculoskeletal: Edema, Right Lower Extrem, Edema, Left Lower Extrem and Other (known back pain 2/2 L2 fracture)
Skin: Warm and Dry
Neuro: AO x 3
Psych: Calm and Intact Judgement/Insight
[2024-12-07 09:30] VITALS: BP 122/77; PULSE 76
[2024-12-07] MEDS: COLACE 100 MG PO ×2 (09:35→20:00)
[2024-12-07] MEDS: MIRALAX 17 GRAMS PO (09:35)
[2024-12-07] MEDS: MILK OF MAGNESIA 30 ML PO (09:36)
[2024-12-07] MEDS: TYLENOL 1000 MG PO ×2 (11:09→19:57)
[2024-12-07 15:10] VITALS: BP 143/74
--- NOTE | 2024-12-07 15:34 | CM ---
Reviewed chart. Pt is NPO of kyphoplasty tomorrow.
Plan: TBD post surgery
[2024-12-07 15:51] VITALS: BP 143/74; PULSE 60; O2SAT 98
[2024-12-07] MEDS: LIPITOR 10 MG PO (16:42)
--- NOTE | 2024-12-07 17:13 | PTCARENOTE ---
patient refused enema till after tomorrow procedure. he is hoping he could go on his own. MD resident aware
[2024-12-07 23:44] VITALS: BP 109/66; BP 110/65; BP 110/66; PULSE 67; PULSE 69; PULSE 71
[2024-12-08] VITALS (15 sets, daily range): BP systolic 55–151; BP diastolic 62–92; PULSE 67–85; BMI 28.5
--- NOTE | 2024-12-08 07:14 | PTCARENOTE ---
Pt aaox3 able to make his needs known. Pt on bed alarm for safety.On prn pain meds, pt NPO from [place] for IR. Pt on stool softners as ordered,refused Enema & wants to wait till procedure.No other complaints noted.Pt oob to BR with 1 person assist.Plan
of care continued on pt.
[2024-12-08] MEDS: SPIRIVA RESPIMAT 2.5 MCG 2 PUFF INH (07:27)
[2024-12-08] MEDS: SYMBICORT 160/4.5 MCG INHALER 2 PUFF INH (07:27)
[2024-12-08] MEDS: LIDOCAINE 4% PATCH 1 PATCH TOPICAL (08:01)
[2024-12-08] MEDS: PROTONIX 40 MG PO (08:02)
[2024-12-08] MEDS: COREG 3.125 MG PO (08:02)
[2024-12-08] MEDS: COLACE 100 MG PO (08:02)
[2024-12-08] MEDS: MIRALAX 17 GRAMS PO (08:02)
[2024-12-08 08:23] LABS: Hematocrit 38.7 % (39.0-52.0); Hemoglobin 12.8 g/dL (13.0-18.0); Mean Corp Hgb Conc. 33.1 g/dL (33.0-37.0); Mean Corpuscular Volume 95.3 fL (80.0-94.0); Nucleated Red Blood Cells % 0 % (-); Platelet Count 249 10^3/uL (130-400); Red Cell Dist. Width 14.3 % (11.5-14.5)
[2024-12-08 08:34] LABS: INR 1.13; PT 15.1 Sec (11.4-14.6)
[2024-12-08 08:46] LABS: Blood Urea Nitrogen 16 mg/dl (9-20); Calcium 8.5 mg/dl (8.4-10.2); Carbon Dioxide 24 mmol/L (22-30); Chloride 105 mmol/L (98-107); Estimated Creatinine Clearance 69 ml/min; Glucose 86 mg/dl (70-99); Potassium 4.5 mmol/L (3.5-5.1); Sodium 135 mmol/L (135-145); eGFR > 60.00
--- NOTE | 2024-12-08 10:18 | W.PN.HOSP.TC ---
Addendum entered and electronically signed by John Aguilar MD 12/08/24 21:42:
Attending Addendum-
I saw and evaluated the patient. I reviewed the resident�s note and agree with findings and plan as documented in the resident�s note. Sub: pain present, wants to go to rehab post procedure. refused enema, no BM. denies fecal incontinence or urinary
retention. No N/V abd pain. Full 12 point ROS reviewed and negative except as documented Exam: Vitals reviewed in chart GEN-NAD heart irreg irreg lungs clear abd soft LE no edema Back TTP along L spine and paravertebrally
Plan:
# Acute back pain from acute L2 compression fx, traumatic and age related osteoporosis.
-MRI of lumbar spine 12/05-ACUTE SUPERIOR ENDPLATE FRACTURE of L2 with moderate loss of vertebral body height and mild retropulsion of the posterior cortex into the anterior epidural space.
-IR Kyphoplasty-12/08
-Optimize pain control
-restart asa eliquis post procedure
# Mild hyperkalemia-Resolved
# Mild hyponatremia-resolved
# constipation- enema x 1 prior to DC to SNF
# Mild confusion from baseline-med induced-resolved
#stage 1 sacral PI, POA
#stage 2 left buttock PI, POA
- wound care
# A-fib
-Rate controlled,
-restart eliquis post procedure
-Continue carvedilol
# Asthma/COPD-On Breztri and albuterol-monitor closely post procedure
# HLD- cont atorvastatin
# DVT udkwygqvwwe-Ciezmbn-ca hold- restart post procedure
# CODE STATUS-DNR
Dispo- DC to [facility] today post procedure
Time spent coordinating care, DC planning, review of DC plan of care with resident, transition of care, review of records, med rec/scripts sent electronically, consults, notes, d/w consultants, nursing, family, and CM� 32 mins >50% of this time was
devoted to counseling and coordination of care
Original Note:
Today's Communication/Plan
-
IR kyphoplasty today with IR
Enema before dc to [facility] today
Assessment / Plan
Assessment / Plan
Assessment -84-year-old male with PMHx significant for A-fib, PVD, asthma, GERD, HLD, vertigo, presents to the hospital for evaluation of back pain, generalized fatigue, weakness, dizziness and possible dehydration. He is diagnosed with L2
vertebral compression fracture. PT and OT recommended skilled rehab for the patient.
MRI Lumbar Spine 12/05:
1. ACUTE SUPERIOR ENDPLATE FRACTURE of L2 with moderate loss of vertebral body height and mild retropulsion of the posterior cortex into the anterior epidural space. Mild central canal stenosis at L1/L2.
2. Severe bilateral lateral recess stenosis, moderate central canal stenosis, and moderate to severe right neural foraminal narrowing at L4/L5.
3. Moderate central canal stenosis at L2/L3 and L3/L4.
4. Diffuse bone demineralization.
5. Fusiform infrarenal abdominal aortic aneurysm (4.2 cm AP dimension).
Plan-
#Acute back pain-04/10 to vertebral compression fracture-L2, traumatic.
MRI of lumbar spine as above. IR consulted for eval for vertebroplasty/kyphoplasty. Plan for kyphoplasty on 12/08.
- IR consulted:
--IR for vertebral body augmentation today 12/08
--Hold Eliquis & Aspirin
--PT 15.7, INR 1.2
--NPO after midnight 12/07 into 12/08 morning
- PT and OT evaluated in the ER, recommended skilled rehab
- Pain control with lidocaine patch and extra strength Tylenol.
- s/p tramadol; pt dizzy and confused with this, do not use again per pt and .
- s/p mIVF
- CM confirmed discharge to [facility] possible today or tomorrow s/p IR procedure
-- Plan to discharge today
#Constipation
Pt reports baseline constipation with 1BM per week. He has not had a BM in 5-6 days as of 12/07, despite getting Miralax, Senna, and Milk of Mag x1.
- Miralax and Senna daily
- Milk of Mag x 2
- Enema 12/08 after IR procedure
#Mild confusion from baseline, resolved
CT head-suspicious for normal pressure hydrocephalus. Patient and denies any urinary or bowel incontinence or retention. Possible balance issues could be from normal pressure hydrocephalus, but more likely 2/2 fracture. Per , 12/05, pt is
80-85% at his baseline cognitive function now. She reports he has severe sleep debt from pain/hospitalization. Patient is AO x 3, and conversant.
- TSH 3.06 and ammonia <9
#Incidental fusiform infrarenal abdominal aortic aneurysm (4.2 cm AP dimension)
- Vascular surgery follow-up OP
- Rec yearly monitoring
#Macrocytic anemia
Likely chronic
- follow-up B12 and folate levels.
#Hyponatremia, stable
132 stable
-CTM
#A-fib-
Rate controlled, on Eliquis. [id number] score-4.
- Continue carvedilol for rate control at home dose
- Hold Eliquis for IR
#Asthma/COPD-
- Continue home Breztri and albuterol.
#Peripheral venous stasis/ulcer-
- Wound care consult, leg and elevation
DVT prophylaxis-Hold Eliquis, SCDs
CODE STATUS-DNR
Dispo-to [facility]
Anticipated Discharge: Today
Subjective/Interval History
-
Date of Service: December 08, 2024
- He didn't have a BM s/p Milk of Mag yesterday; he is planning to proceed with enema after IR procedure this afternoon.
- Endorses 6/10 low back pain at rest 2/2 L2 fracture, otherwise no new symptoms nor complaints.
Objective Data
-
Labs:
Laboratory Results
12/08/24
07:58
WBC 4.7 L
Hgb 12.8 L
Hct 38.7 L
Plt Count 249
PT 15.1 H
INR 1.13
Sodium 135
Potassium 4.5
Chloride 105
Carbon Dioxide 24
BUN 16
Creatinine 0.9
Glucose 86
Calcium 8.5
Vital Signs:
Vital Signs
Temp Pulse Resp BP Pulse Ox
97.4 F 81 18 151/66 96
12/08/24 07:53 12/08/24 07:53 12/08/24 07:53 12/08/24 07:53 12/08/24 07:53
I&O
12/07/24 12/08/24 12/09/24
06:59 06:59 06:59
Intake Total 840 / 840 0 / 0
Output Total 250 / 250
Balance 590 / 590 0 / 0
Physical Exam
-
General: Well Developed, Well Nourished, No Apparent Distress and Other (laying in bed conversing)
HEENT: Normocephalic, Atraumatic and Moist Mucous Membranes
Respiratory: Clear to Auscultation
GI: Soft and Nontender
Musculoskeletal: No Clubbing, No Cyanosis, Edema, Right Lower Extrem and Edema, Left Lower Extrem
Skin: Warm and Dry
Neuro: AO x 3
Psych: Calm and Intact Judgement/Insight
--- NOTE | 2024-12-08 10:52 | CM ---
Spoke with [facility]; authorization is good until midnight of 12/10.
Christo Mosher for [facility]
Authorization # [id number]
Customer ID: [id number]
5 Days from initial date of admission to SNF
Phone:
Fax:
Initialized on 12/05/24 12:29 - END OF NOTE
[2024-12-08] MEDS: TYLENOL 1000 MG PO (11:16)
[2024-12-08] MEDS: ANCEF 10 IV (12:59)
--- NOTE | 2024-12-08 14:14 | CM ---
[facility] can accept pt at any time today. Pt having surgery today, kyphoplasty. will follow for post op discharge needs.
Plan: Possible DC today to [facility]
report: [phone]
fax: [phone]
--- NOTE | 2024-12-08 16:40 | W.DCSUMMARY ---
Addendum entered and electronically signed by John Aguilar MD 12/08/24 21:43:
Read, reviewed, and agree. See same day progress note for additional details. Addendum: restart eliquis on 12/09.
Javon Aguilar MD
Original Note:
Documented by User: Kai Thomas MD, Resident 12/08/24 17:50
Discharge Summary
Discharge Data
Date of Admission: 12/03/24
Date of Discharge: 12/08/24
-
Pending Results: No
Hospital Course
Discharging Physician : Kai Thomas MD
Disposition : [facility]
Principal Discharge diagnosis : Lower back pain /2 L2 fracture s/p L2 kyphoplasty 12/08
Chronic Discharge diagnosis : Constipation
Hospital Course : Mr. Stringer is an 84-year-old male with PMHx significant for A-fib on Eliquis, asthma, GERD, HLD, vertigo, macular degeneration who presented with generalized fatigue and shooting lower back pain after a soft fall while walking
downstairs from his bedroom on the last 3 steps, landing on his buttocks and hitting his lower back about 6 days prior to presentation. He was using [id number] Tylenol and lidocaine patches along with tramadol which were prescribed by his
orthopedics. He visited [facility] orthopedics prior to presentation and they ordered an XR spine that showed L2 lumbar vertebral compression fracture. Orthopedics recommended an MRI which was scheduled with [facility] on December 17, however "Ag"Myke's pain and limited ADLs led him to the ED. His also endorsed cognitive decline over the past few weeks and urinary frequency. Head CT in the ED could not rule out NPH, but his presentation and symptoms over the hospital course were most
consistent with pain and sleep disturbance secondary to his fracture. He was admitted for further management. PT recommended SNF, which patient and were amenable to. IR was consulted for possible vertebral augmentation and after an inpatient
lumbar MRI, proceeded with L2 vertebral augmentation on 12/08 without any complications. Of note, an infrarenal abdominal aortic aneurysm (4.2 cm AP dimension) was noted on his MRI that will require outpatient follow-up with vascular surgery
(referral provided). His hospital course was complicated by constipation (baseline 1 BM/wk) and after multiple days of Miralax, Senna, and Milk of Mag, Mr. Stringer agreed to an enema prior to discharge to [facility] on 12/08/24. His Eliquis was
held on 12/06 in anticipation of the procedure and will be resumed on 12/09. He was instructed to take Miralax and Senna outpatient daily and follow up with PCP in less than a week. Hospital course by problem is below.
1. Acute back pain-2/2 to vertebral compression fracture-L2, traumatic.
- IR consulted:
--IR for vertebral body augmentation today 12/08
--Hold Eliquis & Aspirin
--PT 15.7, INR 1.2
--NPO after midnight 12/07 into 12/08 morning
- PT and OT evaluated in the ER, recommended skilled rehab
- Pain control with lidocaine patch and extra strength Tylenol.
- s/p tramadol; pt dizzy and confused with this, do not use again per pt and .
- CM confirmed discharge to [facility] possible today or tomorrow s/p IR procedure
2. Constipation
Pt reports baseline constipation with 1BM per week. He has not had a BM in 5-6 days as of 12/07, despite getting Miralax, Senna, and Milk of Mag x1.
- Miralax and Senna daily
- Milk of Mag x 2
- Enema 12/08 after IR procedure
3. Mild confusion from baseline, resolved
CT head-suspicious for normal pressure hydrocephalus. Patient and denies any urinary or bowel incontinence or retention. Possible balance issues could be from normal pressure hydrocephalus, but more likely 2/2 fracture. Per , 12/05, pt is
80-85% at his baseline cognitive function now. She reports he has severe sleep debt from pain/hospitalization. Patient is AO x 3, and conversant.
- TSH 3.06 and ammonia <9
4. Incidental fusiform infrarenal abdominal aortic aneurysm (4.2 cm AP dimension)
- Vascular surgery follow-up OP
- Rec yearly monitoring
5. A-fib
Rate controlled, on Eliquis. [id number] score-4.
- Continue carvedilol for rate control at home dose
- Hold Eliquis for IR
6. Asthma/COPD-
- Continue home Breztri and albuterol.
7. Peripheral venous stasis/ulcer-
- Wound care consult, leg and elevation
Important imaging findings :
XA Lumbar Vertebral Augment 12/08:
Technically successful L2 percutaneous vertebroplasty.
MR Lumbar Without Contrast 12/05:
1. ACUTE SUPERIOR ENDPLATE FRACTURE of L2 with moderate loss of vertebral body height and mild retropulsion of the posterior cortex into the anterior epidural space. Mild central canal stenosis at L1/L2.
2. Severe bilateral lateral recess stenosis, moderate central canal stenosis, and moderate to severe right neural foraminal narrowing at L4/L5.
3. Moderate central canal stenosis at L2/L3 and L3/L4.
4. Diffuse bone demineralization.
5. Fusiform infrarenal abdominal aortic aneurysm (4.2 cm AP dimension).
Head CT 12/03:
No acute intracranial abnormality noted.
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 Stable
Moderate atrophy. Stable
Ventricles out of proportion to the sulci. This can be seen with normal pressure hydrocephalus. Stable
CR Lumbar Spine Comp Min 4 Vw 12/03:
New moderate L2 compression fracture. Age indeterminate.
New small bowel dilatation likely due to small bowel ileus
Moderate fecal material in the colon. Improved.
Moderate bilateral SI joint joint osteoarthritis. New.
Discharge Plan
-
Patient Disposition: Acute Rehab Facility
Discharge Diagnosis/Procedures: Lower back pain 2/2 L2 fracture s/p kyphoplasty via IR
Condition: Good
Diet: No restrictions
Activity: As tolerated
Driving Restrictions: As prior to admission
Bathing Restrictions: None
Activity Restrictions/Additional Instructions:
Wound Care Instructions
12/05 L lateral lower leg: clean with soap and water, adaptic and dry dressing change daily and prn drainage.
L buttock/sacrum: clean with soap and water, sacral silicone foam change q 3 days and prn soilage
Brandin wraps knee high daily can remove at bedtime
leg elevation when sitting
Air cushion when sitting. *Can take upon discharge.
Follow up at wound care center call for an appointment.
Referrals:
Kwesi Bravo DO [Family Provider, Family Practice] - in less than 1 week
Jose Miguel Varela MD [Active, Vascular Surgery] - in two to three weeks
Referral Note: Please call to make an appointment with vascular surgery regarding your incidental finding of a 4.2cm Abdominal Aortic Aneurysm.
Additional Discharge Medication Instructions: - Take Miralax and Colace daily for regular bowel movements
--You can take Tylenol 1000mg up to 4 times daily for pain
--Continue with Lidocaine patches
- Please call to make an appointment with vascular surgery (referral provided) regarding your incidental finding of a 4.2cm Abdominal Aortic Aneurysm. This will need yearly imaging and follow-up.
- Restart your Eliquis tomorrow 12/09
Prescriptions:
New
gabapentin 100 mg capsule
100 mg PO TID Qty: 30 0RF
Continued
lovastatin 40 mg Tablet
40 mg PO QPM
carvedilol 3.125 mg Tablet
3.125 mg PO BID
fluticasone propionate 50 mcg/actuation [place],Suspension
1 spray INTRANASAL DAILYPRN PRN (Reason: allergies)
aspirin 81 mg Tablet,Delayed Release (Dr/Ec)
81 mg PO DAILY
Eliquis 5 mg tablet
5 mg PO BID Qty: 60 0RF
vitamin E 268 mg (400 unit) Capsule
268 mg PO DAILY
Breztri Aerosphere 160-9-4.8 mcg/actuation HFA aerosol inhaler
2 inh INHALATION R BID
naproxen sodium [Aleve] 220 mg Tablet
220 mg PO DAILYPRN PRN (Reason: BACK PAINS)
albuterol sulfate 90 mcg/actuation HFA aerosol inhaler
2 puff inhalation R QIDPRN PRN (Reason: shortness of breath or wheezing)
azithromycin 250 mg tablet
250 mg PO DAILY 6 Days Qty: 3 0RF
Rx Instructions:
Last dose 03/19 evening
cefdinir 300 mg capsule
300 mg PO BID Qty: 6 0RF
Rx Instructions:
Last dose 03/19 evening
lidocaine 4 % adhesive patch,medicated
1 patch topical Q24H PRN (Reason: Pain) 10 Days Qty: 15 0RF
Discontinued
hydrocodone-acetaminophen 5-325 mg tablet
2 tab PO Q6H PRN (Reason: Pain) Qty: 15 0RF
hydrocodone-acetaminophen 5-325 mg tablet
1 tab PO Q8H PRN (Reason: Pain) Qty: 6 0RF
Discharge Orders:
Discharge Patient (As Directed); Ordered 12/08/24
Ordered By: Kai Thomas
Discharge Date and Time
Discharge Date/Time: 12/08/24 17:58
Print Language: MONEGASQUE

Documented by User: John Aguilar MD 12/08/24 21:39
Discharge Summary
Discharge Data
Date of Admission: 12/03/24
Date of Discharge: 12/08/24
Discharge Plan
-
Patient Disposition: Acute Rehab Facility
Discharge Diagnosis/Procedures: Lower back pain 2/2 L2 fracture s/p kyphoplasty via IR
Condition: Good
Diet: No restrictions
Activity: As tolerated
Driving Restrictions: As prior to admission
Bathing Restrictions: None
Activity Restrictions/Additional Instructions:
Wound Care Instructions
12/05 L lateral lower leg: clean with soap and water, adaptic and dry dressing change daily and prn drainage.
L buttock/sacrum: clean with soap and water, sacral silicone foam change q 3 days and prn soilage
Brandin wraps knee high daily can remove at bedtime
leg elevation when sitting
Air cushion when sitting. *Can take upon discharge.
Follow up at wound care center call for an appointment.
Referrals:
Kwesi Bravo DO [Family Provider, Family Practice] - in less than 1 week
Jose Miguel Varela MD [Active, Vascular Surgery] - in two to three weeks
Referral Note: Please call to make an appointment with vascular surgery regarding your incidental finding of a 4.2cm Abdominal Aortic Aneurysm.
Additional Discharge Medication Instructions: - Take Miralax and Colace daily for regular bowel movements
--You can take Tylenol 1000mg up to 4 times daily for pain
--Continue with Lidocaine patches
- Please call to make an appointment with vascular surgery (referral provided) regarding your incidental finding of a 4.2cm Abdominal Aortic Aneurysm. This will need yearly imaging and follow-up.
- Restart your Eliquis tomorrow 12/09
Prescriptions:
New
gabapentin 100 mg capsule
100 mg PO TID Qty: 30 0RF
Continued
lovastatin 40 mg Tablet
40 mg PO QPM
carvedilol 3.125 mg Tablet
3.125 mg PO BID
fluticasone propionate 50 mcg/actuation [place],Suspension
1 spray INTRANASAL DAILYPRN PRN (Reason: allergies)
aspirin 81 mg Tablet,Delayed Release (Dr/Ec)
81 mg PO DAILY
Eliquis 5 mg tablet
5 mg PO BID Qty: 60 0RF
vitamin E 268 mg (400 unit) Capsule
268 mg PO DAILY
Breztri Aerosphere 160-9-4.8 mcg/actuation HFA aerosol inhaler
2 inh INHALATION R BID
naproxen sodium [Aleve] 220 mg Tablet
220 mg PO DAILYPRN PRN (Reason: BACK PAINS)
albuterol sulfate 90 mcg/actuation HFA aerosol inhaler
2 puff inhalation R QIDPRN PRN (Reason: shortness of breath or wheezing)
azithromycin 250 mg tablet
250 mg PO DAILY 6 Days Qty: 3 0RF
Rx Instructions:
Last dose 03/19 evening
cefdinir 300 mg capsule
300 mg PO BID Qty: 6 0RF
Rx Instructions:
Last dose 03/19 evening
lidocaine 4 % adhesive patch,medicated
1 patch topical Q24H PRN (Reason: Pain) 10 Days Qty: 15 0RF
Discontinued
hydrocodone-acetaminophen 5-325 mg tablet
2 tab PO Q6H PRN (Reason: Pain) Qty: 15 0RF
hydrocodone-acetaminophen 5-325 mg tablet
1 tab PO Q8H PRN (Reason: Pain) Qty: 6 0RF
Discharge Orders:
Discharge Patient (As Directed); Ordered 12/08/24
Ordered By: Kai Thomas
Discharge Date and Time
Discharge Date/Time: 12/08/24 17:58
Print Language: MONEGASQUE
[2024-12-08] MEDS: FLUZONE HIGH-DOSE 2025-26 0.5 ML IM (16:53)
[2024-12-08] MEDS: LIPITOR 10 MG PO (16:53)
--- NOTE | 2024-12-08 17:07 | CM ---
TC from [facility] to see if patient was being transferred.
Patient s/p vertebroplasty today.
Patient received enema and per nursing + results.
Spouse will transport.
Updated clinicals via [facility].
== END 2024-12-08 17:58 | DRG 516 ==
LOC: 4 EAST ACU 16:19
PROVIDERS: Radiology Diagnostic Radiology; Student in an Organized Health Care Education/Training Program; ADMITTING PHYSICIAN Internal Medicine; ATTENDING PHYSICIAN Family Medicine; EMERGENCY PHYSICIAN Emergency Medicine; FAMILY PHYSICIAN Family Medicine
PROC: 0QU03JZ Supplement Lumbar Vertebra with Synthetic Substitute, Percutaneous Approach (ICD-10-PCS; 2024-12-08)
DX: M80.08XA Age-related osteoporosis with current pathological fracture, vertebra(e), initial encounter for fracture (principal); E87.1 Hypo-osmolality and hyponatremia; D53.9 Nutritional anemia, unspecified; E78.00 Pure hypercholesterolemia, unspecified; E86.0 Dehydration; E87.5 Hyperkalemia; Z66 Do not resuscitate; H35.30 Unspecified macular degeneration; I48.91 Unspecified atrial fibrillation; I95.9 Hypotension, unspecified; J44.89 Other specified chronic obstructive pulmonary disease; I87.2 Venous insufficiency (chronic) (peripheral); K21.9 Gastro-esophageal reflux disease without esophagitis; I73.9 Peripheral vascular disease, unspecified; I71.43 Infrarenal abdominal aortic aneurysm, without rupture; L89.151 Pressure ulcer of sacral region, stage 1; L89.322 Pressure ulcer of left buttock, stage 2; M48.061 Spinal stenosis, lumbar region without neurogenic claudication; W10.9XXA Fall (on) (from) unspecified stairs and steps, initial encounter; Z79.01 Long term (current) use of anticoagulants; Z79.82 Long term (current) use of aspirin; Z96.611 Presence of right artificial shoulder joint; Z86.73 Personal history of transient ischemic attack (TIA), and cerebral infarction without residual deficits; Z79.899 Other long term (current) drug therapy
CPT/HCPCS: 22514; 70450; 72110; 72148; 80048; 80053; 81003; 81015; 82140; 82248; 84443; 85025; 85027; 85610; 87086; 90662; 94640; 96360; 97116; 97530; 99285; G0008

== ENCOUNTER → 2025-01-17 06:50 | Outpatient (REF) | payer OTHER, SELFPAY | LOC: RAD 06:50 | PROVIDERS: ATTENDING PHYSICIAN Surgery Vascular Surgery; FAMILY PHYSICIAN Family Medicine | DX: I71.40 Abdominal aortic aneurysm, without rupture, unspecified (principal) | CPT/HCPCS: 74174; 76770; Q9967 ==